=== PATIENT | female | born 1955 | race Caucasian/White ===

== ENCOUNTER 2019-03-31 16:35 | Outpatient (CLI) | payer BC, SELFPAY ==
--- NOTE | ~2019-03-31 | CT_ITS ---
EXAMINATION: CT abdomen pelvis wo con DATE: 03/31/2019 17:11 INDICATION: Unspecified abdominal pain, dysuria TECHNIQUE: Computed tomography (CT) of the abdomen and pelvis was performed without intravenous contr ast. The dose-length product (DLP) was 1097.87 mGy-cm. Automated exposure control and iterative recon struction technique were employed. COMPARISON: None FINDINGS: Minimal dependent atelectasis is present in the lung bases. The heart size is normal. The l iver is diffusely low in attenuation when compared with the spleen, consistent with hepatic steatosis . A 1.3 cm fluid attenuation area of the right hepatic lobe likely represents a cyst. The gallbladder is surgically absent. Punctate calcifications in an otherwise normal spleen likely represent healed granulomatous disease. The pancreas and adrenal glands are normal. There is a 4 mm nonobstructing sto ne of the left kidney. The right kidney is normal. No stones are identified in the ureters or bladder . There is no hydronephrosis or hydroureter. No pathologically enlarged abdominal or pelvic lymph nod es are identified. There is no free intraperitoneal gas or evidence of bowel obstruction. Multiple ce cum is noted in the left upper quadrant. The appendix is normal. IMPRESSION: 1. No CT correlate for the patient's symptoms. 2. Nonobstructing left nephrolithiasis. Reviewed, dictated and finalized at location A. [employer]
[2019-03-31 16:50] LABS: Add Urine Microscopic? NO; Appearance Urine Clear (Clear); Bilirubin Urine Negative (Negative); Blood Urine Negative (Negative); Color Urine Colorless (Yellow); Glucose Urine UA Negative (Negative); Ketones Urine Negative (Negative); Leukocyte Esterase Ur Negative LEU/UL (NEGATIVE); Nitrate Urine Negative (Negative); Protein Urine Negative (Negative); Specific Grav Ur 1.008 (1.001-1.035); Urobilinogen Urine Negative mg/dL (<2.0)
== END 2019-03-31 16:36 | disposition home or self-care (01) ==
PROVIDERS: Physician Assistant; PCP Family Medicine; Visit Provider Family Medicine
DX: R10.9 Unspecified abdominal pain (principal); R30.0 Dysuria; N20.0 Calculus of kidney
CPT/HCPCS: 74176; 81003

== ENCOUNTER → 2019-08-28 07:52 | Outpatient (CLI) | payer BC, SELFPAY ==
--- NOTE | ~2019-08-28 | XR_ITS ---
XR thoracic spine 3V DATE: 08/28/2019 08:37 INDICATION: Thoracic back pain TECHNIQUE: AP, lateral, swimmer views COMPARISON: None FINDINGS: No fracture or dislocation or bone destruction is evident. The thoracic pedicles are intact . There is mild degenerative spurring of the thoracic spine. No paraspinal soft tissue thickening. Surgical clips, right upper quadrant, consistent with cholecystectomy. IMPRESSION: Mild degenerative spurring of the thoracic spine Reviewed, dictated and finalized at location D.
== END ==
PROVIDERS: PCP Family Medicine; Visit Provider Family Medicine
DX: M54.6 Pain in thoracic spine (principal); M46.04 Spinal enthesopathy, thoracic region
CPT/HCPCS: 72072

== ENCOUNTER 2019-10-16 10:24 | Outpatient (CLI) | payer BC, SELFPAY ==
[2019-10-16 10:37] LABS: Basophils Percent Auto 0.7 % (0.2-1.2); Eosinophils Absolute Auto 0.2 K/mm3 (0-0.3); Eosinophils Percent Auto 2.7 % (0-4.4); Hematocrit 41.4 % (37.0-47.0); Hemoglobin 13.3 g/dL (12.0-15.0); Immature Granulocyte Absolute 0.02 K/mm3 (0.00-0.031); Immature Granulocyte Percent A 0.3 % (0-0.5); Lymphocytes Absolute Auto 2.17 K/mm3 (0.9-3.2); Mean Corpuscular HGB Conc 32.1 g/dl (32-36); Mean Corpuscular Hemoglobin 28.4 pg (26-34); Mean Corpuscular Volume 88.3 fl (80-100); Mean Platelet Volume 11.2 fl (7.4-10.4); Monocytes Absolute Auto 0.5 K/mm3 (0.1-0.6); Monocytes Percent Auto 8.8 % (2.6-8.5); Neutrophils Absolute Auto 3.1 K/mm3 (1.3-6.7); Neutrophils Percent Auto 51.5 % (45.5-73.1); Platelet Count Result 166 k/mm3 (150-375); Red Blood Count 4.69 M/mm3 (4.2-5.4); Red Cell Distribution Width 13.2 % (11.5-14.5)
[2019-10-16 10:44] LABS: Blood Urea Nitrogen 17 mg/dL (8-26); Carbon Dioxide 20 mmol/L (22-30); Chloride 111 mmol/L (98-109); Estimated Glomerular Filt Rate > 60; Glucose 125 mg/dL (70-105); Potassium 4.1 mmol/L (3.5-4.9); Sodium 144 mmol/L (138-146)
[2019-10-16 12:51] LABS: Alanine Aminotransferase 18 U/L (4-35); Albumin Level 3.7 g/dL (3.5-5.1); Alkaline Phosphatase 57 U/L (38-126); Anion Gap 7 mmol/L (8-16); Aspartate Amino Transferase 22 U/L (14-36); Bilirubin,Total 0.4 mg/dL (0.2-1.3); Blood Urea Nitrogen 18 mg/dL (7-17); Calcium 8.9 mg/dL (8.4-10.2); Carbon Dioxide 22 mmol/L (22-30); Chloride 112 mmol/L (98-107); Estimated Glomerular Filt Rate > 60; Glucose 125 mg/dL (65-105); Potassium 4.3 mmol/L (3.4-5.0); Sodium 141 mmol/L (137-145)
== END 2019-10-16 10:25 | disposition home or self-care (01) ==
PROVIDERS: PCP Family Medicine; Visit Provider Internal Medicine Hematology & Oncology
DX: N60.92 Unspecified benign mammary dysplasia of left breast (principal)
CPT/HCPCS: 36415; 80048; 80053; 85025

== ENCOUNTER 2020-04-15 10:20 | Outpatient (CLI) | payer OTHER, SELFPAY ==
[2020-04-15 10:36] LABS: Basophils Percent Auto 0.7 % (0.2-1.2); Eosinophils Absolute Auto 0.2 K/mm3 (0-0.3); Eosinophils Percent Auto 2.7 % (0-4.4); Hematocrit 41.5 % (37.0-47.0); Hemoglobin 13.2 g/dL (12.0-15.0); Immature Granulocyte Absolute 0.03 K/mm3 (0.00-0.031); Immature Granulocyte Percent A 0.5 % (0-0.5); Lymphocytes Absolute Auto 2.16 K/mm3 (0.9-3.2); Lymphocytes Percent Auto 36.7 % (18.3-44.2); Mean Corpuscular HGB Conc 31.8 g/dl (32-36); Mean Corpuscular Hemoglobin 28.1 pg (26-34); Mean Corpuscular Volume 88.5 fl (80-100); Mean Platelet Volume 10.9 fl (7.4-10.4); Monocytes Absolute Auto 0.5 K/mm3 (0.1-0.6); Monocytes Percent Auto 8.7 % (2.6-8.5); Neutrophils Percent Auto 50.7 % (45.5-73.1); Platelet Count Result 169 k/mm3 (150-375); Red Blood Count 4.69 M/mm3 (4.2-5.4); Red Cell Distribution Width 13.3 % (11.5-14.5); White Blood Count 5.9 K/mm3 (4.5-10.0)
[2020-04-15 10:40] LABS: Blood Urea Nitrogen 21 mg/dL (8-26); Carbon Dioxide 20 mmol/L (22-30); Chloride 111 mmol/L (98-109); Estimated Glomerular Filt Rate > 60; Glucose 126 mg/dL (70-105); Potassium 3.9 mmol/L (3.5-4.9); Sodium 144 mmol/L (138-146)
[2020-04-15 11:47] LABS: Alanine Aminotransferase 17 U/L (4-35); Albumin Level 3.4 g/dL (3.5-5.1); Alkaline Phosphatase 59 U/L (38-126); Anion Gap 6 mmol/L (8-16); Aspartate Amino Transferase 23 U/L (14-36); Bilirubin,Total 0.3 mg/dL (0.2-1.3); Blood Urea Nitrogen 20 mg/dL (7-17); Calcium 8.3 mg/dL (8.4-10.2); Carbon Dioxide 22 mmol/L (22-30); Chloride 114 mmol/L (98-107); Estimated Glomerular Filt Rate > 60; Glucose 121 mg/dL (65-105); Potassium 4.2 mmol/L (3.4-5.0); Sodium 142 mmol/L (137-145)
== END 2020-04-15 10:21 | disposition home or self-care (01) ==
LOC: ANHLAB 10:23
PROVIDERS: PCP Family Medicine; Visit Provider Internal Medicine Hematology & Oncology
DX: N60.92 Unspecified benign mammary dysplasia of left breast (principal)
CPT/HCPCS: 36415; 80048; 80053; 85025

== ENCOUNTER 2020-06-22 23:23 | Emergency (ER) | payer OTHER, SELFPAY ==
--- NOTE | ~2020-06-22 | XR_ITS ---
EXAMINATION: XR knee RT 3V DATE: 06/22/2020 23:49 INDICATION: Right knee pain. TECHNIQUE: 3 views of right knee were obtained. COMPARISON: None. FINDINGS: Bone alignment is normal. No fracture. There is mild osteoarthritis of medial and lateral c ompartments and moderate osteoarthritis of patellofemoral compartment. There is a small knee joint ef fusion with loose body. IMPRESSION: 1. Moderate right knee osteoarthritis. 2. Small right knee joint effusion with loose body. Reviewed, dictated and finalized at location A.
[2020-06-22 23:26] VITALS: BP 176/72; PULSE 65; RESP 18; TEMP 36.4; O2SAT 98
--- NOTE | 2020-06-23 00:03 | ED.GENADULT ---
HPI - General Adult General Chief complaint: Extremity Injury, Lower Stated complaint: leg pain, right knee popped Time Seen by Provider: 06/22/20 23:56 History of Present Illness HPI narrative: Patient is a 64-year-old female who presents the emergency department with chief complaint of right knee pain patient reports she has been having some discomfort in her right knee and then was walking up the steps today heard a loud pop and had severe pain in her right knee. Patient denies focal trauma denies laceration denies swelling in the calf. Related Data Home Medications Medication Instructions Recorded Confirmed tamoxifen 20 mg tablet 20 mg PO DAILY 02/25/19 05/05/20 fluticasone propionate 50 1 spray NASAL BID 06/29/19 05/05/20 mcg/actuation nasal spray,suspension Allergies Allergy/AdvReac Type Severity Reaction Status Date / Time No Known Allergies Allergy Verified 06/22/20 23:53 Review of Systems Review of Systems: Narrative: A 10 system review of systems was completed on the patient and is negative except for what is stated in the HPI. Nursing and ancillary documentation was reviewed. [facility] Past Medical History Medical History Abnormal breast tissue Abnormal fasting glucose Acute non-recurrent maxillary sinusitis Body mass index (BMI) of 40.1 to 44.9 in adult Chronic headaches Chronic low back pain with right-sided sciatica Colon polyp, hyperplastic Dysuria Essential (primary) hypertension Frozen shoulder (~2011) GERD (gastroesophageal reflux disease) History of migraine headaches Menopausal symptoms Migraine without aura and without status migrainosus, not intractable Mixed hyperlipidemia Right flank pain Right-sided thoracic back pain Seasonal allergic rhinitis TMJ (dislocation of temporomandibular joint) (~1979) Surgical History Surgical History H/O knee surgery (~1979) H/O: hysterectomy (~1984) History of bunionectomy (~1998) bilateral History of placement of ear tubes History of sinus surgery (~2004) Hx of cholecystectomy (~1999) Hx of tonsillectomy Family History Family History Mother Cerebrovascular accident Dementia Father Diabetes mellitus Hypertension CHF (congestive heart failure) Grandparent Heart disease Grandparent Heart disease Grandparent Cerebrovascular accident Grandparent Automobile accident Social History Social History Smoking packs per day: 2 Smoking cigarettes per day: 40.0 Years smoked: 10 Smoking pack-years: 20.00 Smoking status: Former smoker Alcohol intake: current Substance use: never Substance use type: does not use Exam Narrative: Exam Narrative: GENERAL: Well-appearing, well-nourished, and in no acute distress. HEAD: Normocephalic, atraumatic. EYES: PERRLA and EOMI. ENT: Nares clear, no rhinorrhea or epistaxis. Mucous membranes moist. NECK: Supple. CHEST: Clear to auscultation. No respiratory distress. HEART: Regular rate and rhythm. No murmur heard. Normal peripheral pulses. ABDOMEN: Soft, nontender, nondistended, normal active bowel sounds. EXTREMITIES: Normal range of motion. No edema. There is a slight joint effusion on the right knee. There is tenderness to palpation SKIN: Warm, dry, no rash. NEURO: No focal deficits. Alert and oriented x3. PSYCH: Normal mood and affect. Course Course Emergency Course: Plain film x-rays of the right knee showed a slight joint effusion and a loose body. Patient will be placed in a knee immobilizer and the patient has crutches at home patient will be referred to orthopedics Vital Signs Vital signs: Vital Signs Temperature 36.4 C 06/22/20 23:26 Pulse Rate 65 06/22/20 23:26 Re
[2020-06-23] MEDS: HYDROcodone/acetaminophen (*CRX) 5-325 MG TABLET 1 TAB PO (00:49)
[2020-06-23 00:53] VITALS: BP 160/69; PULSE 59; RESP 18; O2SAT 100
--- NOTE | 2020-06-23 00:55 | PC.NURSE ---
patient reports that she has crutches at home
== END 2020-06-23 00:55 | disposition home or self-care (01) ==
LOC: ANHED 06-23 00:15
PROVIDERS: Emergency Provider Emergency Medicine; PCP Family Medicine
DX: M23.91 Unspecified internal derangement of right knee (principal); I10 Essential (primary) hypertension; E78.2 Mixed hyperlipidemia; Z87.19 Personal history of other diseases of the digestive system; Z87.891 Personal history of nicotine dependence
CPT/HCPCS: 73562; 99283; A9270

== ENCOUNTER → 2020-07-07 12:05 | Outpatient (CLI) | payer OTHER, SELFPAY ==
--- NOTE | ~2020-07-07 | MR_ITS ---
EXAMINATION: MR knee RT wo con DATE: 07/07/2020 13:02 INDICATION: Other tear of medial meniscus, current injury, right knee, initial encounter. Right knee pain. TECHNIQUE: Magnetic resonance imaging (MRI) of the right knee was performed without intravenous contr ast. Sequences included axial PD-weighted FS FSE, coronal PD-weighted FSE and PD-weighted FS FSE, sag ittal PD-weighted FSE, and sagittal T2-weighted FS FSE. COMPARISON: Right knee radiographs 06/22/2020 FINDINGS: Medial compartment: There is a vertical tear of posterior root of medial meniscus. There is shallow partial-thickness car tilage loss of tibial condyle. There is full-thickness cartilage loss of femoral condyle involving th e central and medial articular surface. Osteophytes are noted. Lateral compartment: Lateral meniscus is normal. There is cartilage surface irregularity of tibial condyle and femoral con dyle. Marginal osteophytes are noted. Patellofemoral compartment: There is full-thickness cartilage loss of patellar medial and lateral facets and median ridge with mi ld subchondral edema-like marrow signal intensity. There is full-thickness cartilage loss of central and lateral trochlea with mild subchondral edema-like marrow signal intensity. Osteophytes are noted. Ligaments and tendons: The anterior cruciate ligament is normal. There is a partial tear of posterior cruciate ligament kathryn acterized by thickening and increased signal intensity. There are changes of prior sprains of medial collateral ligament and fibular collateral ligament characterized by thickening and increased signal intensity proximally. The patellar tendon is normal. Fluid: There is a small knee joint effusion. There is mild prepatellar and superficial infrapatellar bursiti s. IMPRESSION: 1. Severe chondrosis of medial and patellofemoral compartments and mild chondrosis of lateral compart ment. 2. Tear of medial meniscus. 3. Small knee joint effusion. 4. Partial tear of posterior cruciate ligament. Reviewed, dictated and finalized at location A. IMPRESSION: 1. Severe chondrosis of medial and patellofemoral compartments and mild chondro sis of lateral compartment. 2. Tear of medial meniscus. 3. Small knee joint effusion. 4. Partial tear of posterior cruciate ligament.
== END ==
PROVIDERS: Visit Provider Orthopaedic Surgery
DX: M25.461 Effusion, right knee (principal); S83.241A Other tear of medial meniscus, current injury, right knee, initial encounter; S83.91XA Sprain of unspecified site of right knee, initial encounter
CPT/HCPCS: 73721

== ENCOUNTER 2020-07-15 09:20 | Outpatient (CLI) | payer OTHER, SELFPAY ==
--- NOTE | ~2020-07-15 | MM_ITS ---
EXAMINATION: MM screening estela BI w acrl HISTORY: Screening mammogram TECHNIQUE: Craniocaudal and mediolateral oblique 3-D tomosynthesis images were obtained and synthetic 2-D images were generated. CAD analysis was submitted and interpreted. COMPARISON: No prior mammogram is available for comparison at this institution. BREAST PARENCHYMAL COMPOSITION: The breasts are almost entirely fatty. FINDINGS: There are clips in the lower inner quadrant of the left breast: History of prior benign lef t breast biopsy in 2019. There is no evidence of suspicious mass, calcification, or architectural dis tortion to suggest malignancy in either breast. There has been no suspicious interval change. IMPRESSION: 1. No mammographic evidence of malignancy. 2. Recommend routine screening mammography in one year. BI-RADS Category 1: Negative Reviewed, dictated and finalized at location A.
== END 2020-07-15 09:21 | disposition home or self-care (01) ==
LOC: ANHIMG 09:22
PROVIDERS: PCP Family Medicine; Visit Provider Internal Medicine Hematology & Oncology
DX: Z12.31 Encounter for screening mammogram for malignant neoplasm of breast (principal)
CPT/HCPCS: 77063; 77067

== ENCOUNTER → 2020-07-25 00:30 | Outpatient (CLI) | payer OTHER, SELFPAY ==
[2020-07-25 21:52] LABS: SARS-CoV-2 RNA PCR Negative
== END ==
PROVIDERS: Visit Provider Orthopaedic Surgery
DX: Z01.812 Encounter for preprocedural laboratory examination (principal); Z20.822 Contact with and (suspected) exposure to COVID-19
CPT/HCPCS: C9803; U0003; U0005

== ENCOUNTER 2020-07-25 08:00 | Outpatient (CLI) | payer OTHER, SELFPAY ==
--- NOTE | 2020-07-25 08:30 | ECG_ITS ---
Measurements Intervals [place] Rate: 58 P: 0 [place]: 149 QRS: -11 QRSD: 87 T: 17 QT: 423 QTc: 416 Interpretive Statements SINUS BRADYCARDIA DELAYED PRECORDIAL R/S TRANSITION VOLTAGE CRITERIA FOR LVH BORDERLINE ECG Electronically Signed On 07-25-2020 11:59:54 CDT by John Goncalves D.O.
== END 2020-07-25 08:01 | disposition home or self-care (01) ==
LOC: ANHSURGERY 08:02
PROVIDERS: Visit Provider Orthopaedic Surgery
DX: I10 Essential (primary) hypertension (principal); Z01.812 Encounter for preprocedural laboratory examination
CPT/HCPCS: 93005

== ENCOUNTER 2020-07-28 01:09 | Day surgery (SDC) | payer OTHER, SELFPAY ==
[2020-07-21 14:41] VITALS: BMI 37.8
[2020-07-28] VITALS (9 sets, daily range): BP systolic 120–162; BP diastolic 70–100; PULSE 57–81; RESP 10–16; TEMP 36.1–36.6; O2SAT 91–100
[2020-07-28] MEDS: ACETAMINOPHEN 500 MG TABLET 1000 MG PO (06:39)
[2020-07-28] MEDS: LACTATED RINGERS 1,000 ML 30 ML IV CONT ×2 (06:52→08:49)
[2020-07-28] MEDS: KETOROLAC 15 MG/ML VIAL (*BKC) IV PUSH (06:54)
--- NOTE | 2020-07-28 07:02 | WPDANESEPP ---
Anes - Eval Pre Procedure Procedure: Operation Date: 07/28/20 07:30 Proposed Procedures p Right Knee Arthroscopy, Debride Meniscus, Synovectomy, Chondroplasty, Proceed As Indicated - Juan Meneses MD Date/Time: 07/28/20 07:02 Pre Op Diagnosis: rt knee pain, right medial meniscus tear, Patient Data Age: 65 Gender: F Height: 1.63 m Weight: 102.2 kg Last Vital Signs Temp 36.1 C L 07/28/20 06:19 Pulse 57 L 07/28/20 06:19 Resp 16 07/28/20 06:19 BP 141/72 H 07/28/20 06:19 Pulse Ox 98 07/28/20 06:19 Allergies Allergy/AdvReac Type Severity Reaction Status Date / Time No Known Allergies Allergy Verified 07/28/20 06:33 Home Medications Medication Instructions Recorded Confirmed Type tamoxifen 20 mg tablet 20 mg PO DAILY 02/25/19 07/28/20 History cyclobenzaprine 10 mg tablet 10 mg PO TID PRN #60 tablet 05/05/20 07/28/20 Rx fluoxetine 20 mg tablet 20 mg PO DAILY #30 tablet 05/05/20 07/28/20 Rx carvedilol 12.5 mg tablet 12.5 mg PO Q12H #60 tablet 06/03/20 07/28/20 Rx topiramate 50 mg tablet 50 mg PO BID #60 tablet 06/03/20 07/28/20 Rx cimetidine 400 mg tablet 400 mg PO QHS 06/29/20 07/28/20 History hydrocodone 5 mg-acetaminophen 325 1 tablet PO Q6H PRN #30 tablet 07/26/20 07/28/20 Rx mg tablet naproxen sodium [Aleve] 220 mg PO DAILY 07/28/20 07/28/20 History Patient hx anesthesia problems: none Family hx anesthesia problems: none PMFSH Past Medical History Medical History Abnormal breast tissue Abnormal fasting glucose Acute medial meniscus tear of right knee Acute non-recurrent maxillary sinusitis Arthritis of right knee Body mass index (BMI) of 40.1 to 44.9 in adult Chronic headaches Chronic low back pain with right-sided sciatica Colon polyp, hyperplastic Dysuria Essential (primary) hypertension Frozen shoulder (~2011) GERD (gastroesophageal reflux disease) History of migraine headaches Hypertension Knee effusion, right Menopausal symptoms Migraine without aura and without status migrainosus, not intractable Mixed hyperlipidemia Right flank pain Right-sided thoracic back pain Seasonal allergic rhinitis TMJ (dislocation of temporomandibular joint) (~1979) Wears glasses Surgical History Surgical History H/O knee surgery (~1979) H/O: hysterectomy (~1984) History of bunionectomy (~1998) bilateral History of placement of ear tubes History of shoulder surgery History of sinus surgery (~2004) History of surgery TMJ surgery Hx of cholecystectomy (~1999) Hx of tonsillectomy Family History Family History Mother Cerebrovascular accident Dementia Father Diabetes mellitus Hypertension CHF (congestive heart failure) Grandparent Heart disease Grandparent Heart disease Grandparent Cerebrovascular accident Grandparent Automobile accident Other Arthritis Kidney disorder Social History Social History Smoking packs per day: 1 Smoking cigarettes per day: 20.0 Years smoked: 10 Smoking pack-years: 10.00 Smoking status: Former smoker Smoking end date: 02/18/82 Alcohol intake: current Substance use: never Substance use type: does not use Last use: 1982 Living arrangements: with family Gender identity (if verbalized by the patient): Female Sexual Orientation (if Verbalized by the Patient): Straight or Heterosexual Spiritual care concerns: No Exam Day of Procedure 07/28/20 07:02 Patient weight: obese Heart: regular rate and rhythm Lungs: normal air movement Airway: Mallampati scale class II Neurological: alert and oriented
--- NOTE | 2020-07-28 07:05 | WPDANESEPPF ---
Anes - Initial Pre Proc Eval Procedure: Operation Date: 07/28/20 07:30 Proposed Procedures p Right Knee Arthroscopy, Debride Meniscus, Synovectomy, Chondroplasty, Proceed As Indicated - Juan Meneses MD Date/Time: 07/28/20 07:05 Surgeon: Juan Meneses MD Pre Op Diagnosis: rt knee pain, right medial meniscus tear, Patient Data Age: 65 Gender: F Height: 5 ft 4 in Weight: 102.2 kg Last Vital Signs Temp 97 F L 07/28/20 06:19 Pulse 57 L 07/28/20 06:19 Resp 16 07/28/20 06:19 BP 141/72 H 07/28/20 06:19 Pulse Ox 98 07/28/20 06:19 Allergies Allergy/AdvReac Type Severity Reaction Status Date / Time No Known Allergies Allergy Verified 07/28/20 06:33 Home Medications Medication Instructions Recorded Confirmed Type tamoxifen 20 mg tablet 20 mg PO DAILY 02/25/19 07/28/20 History cyclobenzaprine 10 mg tablet 10 mg PO TID PRN #60 tablet 05/05/20 07/28/20 Rx fluoxetine 20 mg tablet 20 mg PO DAILY #30 tablet 05/05/20 07/28/20 Rx carvedilol 12.5 mg tablet 12.5 mg PO Q12H #60 tablet 06/03/20 07/28/20 Rx topiramate 50 mg tablet 50 mg PO BID #60 tablet 06/03/20 07/28/20 Rx cimetidine 400 mg tablet 400 mg PO QHS 06/29/20 07/28/20 History hydrocodone 5 mg-acetaminophen 325 1 tablet PO Q6H PRN #30 tablet 07/26/20 07/28/20 Rx mg tablet naproxen sodium [Aleve] 220 mg PO DAILY 07/28/20 07/28/20 History Patient hx anesthesia problems: none Family hx anesthesia problems: none PMFSH Past Medical History Medical History Abnormal breast tissue Abnormal fasting glucose Acute medial meniscus tear of right knee Acute non-recurrent maxillary sinusitis Arthritis of right knee Body mass index (BMI) of 40.1 to 44.9 in adult Chronic headaches Chronic low back pain with right-sided sciatica Colon polyp, hyperplastic Dysuria Essential (primary) hypertension Frozen shoulder (~2011) GERD (gastroesophageal reflux disease) History of migraine headaches Hypertension Knee effusion, right Menopausal symptoms Migraine without aura and without status migrainosus, not intractable Mixed hyperlipidemia Right flank pain Right-sided thoracic back pain Seasonal allergic rhinitis TMJ (dislocation of temporomandibular joint) (~1979) Wears glasses Surgical History Surgical History H/O knee surgery (~1979) H/O: hysterectomy (~1984) History of bunionectomy (~1998) bilateral History of placement of ear tubes History of shoulder surgery History of sinus surgery (~2004) History of surgery TMJ surgery Hx of cholecystectomy (~1999) Hx of tonsillectomy Family History Family History Mother Cerebrovascular accident Dementia Father Diabetes mellitus Hypertension CHF (congestive heart failure) Grandparent Heart disease Grandparent Heart disease Grandparent Cerebrovascular accident Grandparent Automobile accident Other Arthritis Kidney disorder Social History Social History Smoking packs per day: 1 Smoking cigarettes per day: 20.0 Years smoked: 10 Smoking pack-years: 10.00 Smoking status: Former smoker Smoking end date: 02/18/82 Alcohol intake: current Substance use: never Substance use type: does not use Last use: 1982 Living arrangements: with family Gender identity (if verbalized by the patient): Female Sexual Orientation (if Verbalized by the Patient): Straight or Heterosexual Spiritual care concerns: No Anes - Eval Final PreProcedure Day of Procedure 07/28/20 07:05 Patient weight: obese Heart: regular rate and rhythm Lungs: clear to auscultation Airway: Mallampati scale class III Neurological: alert and oriented Last oral intake: >/= 8 hours ASA classification: III Emergent: no Anesthetic alphonso
--- NOTE | 2020-07-28 07:06 | WPDHPUPDATE1 ---
History and Physical Update Update Date/Time: 07/28/20 07:06 History and Physical has been reviewed, including an updated exam of the patient. There are NO changes in the patient's condition. Covid test negative. Risks, benefits, and alternatives have been discussed and questions answered. Patient agrees to proceed with procedure.
[2020-07-28] MEDS: SCOPOLAMINE 1.5 MG PATCH TRANSDERM (07:12)
[2020-07-28] MEDS: ceFAZolin 2 GM/D5W 50 ML 2 GM/50 ML BAG IVPB (07:20)
[2020-07-28] MEDS: BUPIVACAINE/EPINEPHRINE 0.5% 30 ML VIAL 50 ML INFILTRATE (07:48)
--- NOTE | 2020-07-28 08:40 | W.PM.PROC2 ---
Procedure Note - Detailed Date of Procedure 07/28/20 Pre-op Diagnosis rt knee pain, right medial meniscus tear, Post-op Diagnosis other (Right knee osteoarthritis, medial meniscus tear, chondromalacia, synovitis, exostosis lateral femoral condyle and femoral trochlea) Procedure Performed Right knee arthroscopy with partial medial meniscectomy, abrasion arthroplasty of the lateral femoral condyle, femoral trochlea and medial femoral condyle, debridement Surgeon Juan Meneses MD Anesthesia general Indications 65-year-old woman with right knee pain and swelling following injury. Symptoms unrelieved with conservative treatment, exercises, anti-inflammatories and cortisone injection. MRI demonstrates degenerative changes and medial meniscus tear. Patient presents for operative treatment. Findings Complex degenerative type tear of the posterior horn medial meniscus extending to the medial root complex. Large exostosis of the lateral femoral condyle and femoral trochlea at the patellofemoral articulation, superior medial femoral condyle. Grade 4 chondromalacia of the medial femoral condyle weight-bearing surface and the patellofemoral articulation. Grade 3 chondromalacia medial tibial plateau and lateral femoral condyle. Lateral meniscus intact. ACL and PCL intact. Description of Procedure Informed consent given by patient. Operative extremity marked in preoperative holding area. Patient received intravenous antibiotics. Patient brought to operating room and underwent general anesthetic by anesthesia team. Positioned supine on operating room table. Right leg placed into a posterior thigh leg yo. Foot of the table dropped to 90? and left leg padded out of the field. Time-out performed confirming patient, site of surgery and plan. Right knee prepped and draped in usual sterile surgical fashion using ChloraPrep skin solution. Standard arthroscopic portals made by using a 11 blade knife for the anterior lateral portal 1st. Capsule penetrated bluntly. Camera and inflow started. The below operative findings noted. Intra-articular visualization used to position the anterior medial portal using 22 gauge spinal needle. A 11 blade knife used for the skin and blunt penetration of the capsule. 4.7 millimeter arthroscopic shaver introduced and partial medial meniscectomy of the loose and torn portion performed. Posterior horn of the medial meniscus resected to the medial root back to stable tissue. Edge of meniscus completed with arthroscopic Wand. 4.0 mm shaver used to resect the large exostosis from the lateral femoral condyle, patellofemoral articulation, femoral trochlea and the superior medial femoral condyle. Cartilage and loose or degenerative bone removed down to good bleeding stable bone surface at these areas to complete abrasion arthroplasty. Arthroscopic Wand used to perform chondroplasty of the patellofemoral articulation and the medial femoral condyle. Shaver reintroduced and a synovectomy performed of the anterior fat pad and extensive synovium as well as medial and lateral plica. Bleeding points coagulated with Wand. Knee inspected, no loose pieces noted. 1 liter of irrigant infused and suction out. Arthroscopic cannulas removed. Skin closed with 4 nylon interrupted suture. Local anesthetic with 0.25% Marcaine. Sterile dressing applied. Patient awoken from anesthesia, extubated and taken to recovery room in stable condition. All sponge needle and instrument counts correct at the end of the case. Implants None Estimated Blood Loss 5 Tourniquet Time 0 Drains No Packing No Pathology none sent Complications None Condition stable Disposition PACU
--- NOTE | 2020-07-28 09:15 | SUR.PHASEI ---
O2 removed at 0915.
== END 2020-07-28 11:02 | disposition home or self-care (01) ==
PROVIDERS: PCP Family Medicine; Visit Provider Orthopaedic Surgery
PROC: (CPT 29870; principal; 2020-07-28 07:30)
DX: S83.231A Complex tear of medial meniscus, current injury, right knee, initial encounter (principal); X50.0XXA Overexertion from strenuous movement or load, initial encounter; M94.261 Chondromalacia, right knee; M65.861 Other synovitis and tenosynovitis, right lower leg; I10 Essential (primary) hypertension; E78.2 Mixed hyperlipidemia; K21.9 Gastro-esophageal reflux disease without esophagitis; Z79.891 Long term (current) use of opiate analgesic; Z87.891 Personal history of nicotine dependence; E66.9 Obesity, unspecified; Z68.38 Body mass index [BMI] 38.0-38.9, adult
CPT/HCPCS: 29881; 29879; 93005; A9270; C9803; J0690; J1100; J1200; J1885; J2250; J2405; J2704; J3010; J7120; U0003; U0005

== ENCOUNTER 2020-10-14 10:22 | Outpatient (CLI) | payer OTHER, SELFPAY ==
[2020-10-14 10:41] LABS: Basophils Percent Auto 0.5 % (0.2-1.2); Eosinophils Absolute Auto 0.2 K/mm3 (0-0.3); Eosinophils Percent Auto 3.1 % (0-4.4); Hematocrit 40.7 % (37.0-47.0); Hemoglobin 12.6 g/dL (12.0-15.0); Immature Granulocyte Absolute 0.01 K/mm3 (0.00-0.031); Immature Granulocyte Percent A 0.2 % (0-0.5); Lymphocytes Absolute Auto 2.23 K/mm3 (0.9-3.2); Lymphocytes Percent Auto 34.8 % (18.3-44.2); Mean Corpuscular Hemoglobin 27.5 pg (26-34); Mean Corpuscular Volume 88.9 fl (80-100); Mean Platelet Volume 11.3 fl (7.4-10.4); Monocytes Absolute Auto 0.5 K/mm3 (0.1-0.6); Monocytes Percent Auto 8.4 % (2.6-8.5); Neutrophils Absolute Auto 3.4 K/mm3 (1.3-6.7); Platelet Count Result 152 k/mm3 (150-375); Red Blood Count 4.58 M/mm3 (4.2-5.4); Red Cell Distribution Width 13.2 % (11.5-14.5); White Blood Count 6.4 K/mm3 (4.5-10.0)
[2020-10-14 10:45] LABS: Blood Urea Nitrogen 26 mg/dL (8-26); Carbon Dioxide 24 mmol/L (22-30); Chloride 108 mmol/L (98-109); Estimated Glomerular Filt Rate 56; Glucose 103 mg/dL (70-105); Sodium 144 mmol/L (138-146)
[2020-10-14 16:15] LABS: Alanine Aminotransferase 15 U/L (4-35); Albumin Level 3.7 g/dL (3.5-5.1); Alkaline Phosphatase 65 U/L (38-126); Anion Gap 8 mmol/L (8-16); Aspartate Amino Transferase 20 U/L (14-36); Bilirubin,Total 0.3 mg/dL (0.2-1.3); Blood Urea Nitrogen 26 mg/dL (7-17); Carbon Dioxide 24 mmol/L (22-30); Chloride 106 mmol/L (98-107); Estimated Glomerular Filt Rate > 60; Glucose 106 mg/dL (65-110); Sodium 138 mmol/L (137-145)
== END 2020-10-14 10:23 | disposition home or self-care (01) ==
LOC: ANHLAB 10:25
PROVIDERS: PCP Family Medicine; Visit Provider Internal Medicine Hematology & Oncology
DX: N60.92 Unspecified benign mammary dysplasia of left breast (principal); D24.2 Benign neoplasm of left breast; E66.01 Morbid (severe) obesity due to excess calories
CPT/HCPCS: 36415; 80048; 80053; 85025

== ENCOUNTER 2020-12-09 13:42 | Inpatient (IN) | payer OTHER, SELFPAY ==
--- NOTE | ~2020-12-09 | US_ITS ---
EXAMINATION: US venous doppler [facility] DATE: 12/10/2020 10:15 INDICATION: Shortness of breath, pulmonary emboli TECHNIQUE: Almazan scale images without and with compression and Doppler images of the bilateral lower e xtremity veins were obtained. COMPARISON: None FINDINGS: The right common femoral vein, profunda femoral vein, femoral vein, popliteal vein, peroneal trunk, p osterior tibial veins, and greater saphenous vein are patent. The left common femoral vein, profunda femoral vein, femoral vein, and greater saphenous vein are pat ent. There is thrombosis of the popliteal vein, peroneal trunk, gastrocnemius, and posterior tibial v eins. IMPRESSION: 1. Thrombosis of the left popliteal vein, peroneal trunk, gastrocnemius, and posterior tibial veins. Known diagnosis of pulmonary embolism. 2. Patent right lower extremity veins. Reviewed, dictated and finalized at location A. IMPRESSION: 1. Thrombosis of the left popliteal vein, peroneal trunk, gastrocnemius, and po sterior tibial veins. Known diagnosis of pulmonary embolism. 2. Patent right lower extremity veins.
--- NOTE | ~2020-12-09 | XR_ITS ---
EXAMINATION: XR chest 2V DATE: 12/09/2020 14:25 INDICATION: Postoperative shortness of breath TECHNIQUE: frontal and lateral views of the chest were obtained. COMPARISON: None FINDINGS: The lungs are clear with no focal airspace opacities, pulmonary edema, pleural effusion or pneumothor ax. The cardiomediastinal silhouette is normal. Mild to moderate thoracic spondylosis with chronic ap pearing mild anterior wedging of a midthoracic vertebral body likely T8. Small sclerotic lesion at th e right humeral head with location and appearance most consistent with an enchondroma. Cholecystectom y clips in the right upper quadrant. IMPRESSION: 1. No acute cardiopulmonary disease. Reviewed, dictated and finalized at location A.
--- NOTE | ~2020-12-09 | US_ITS ---
EXAMINATION: US thyroid EXAM DATE: 12/11/2020 09:17 INDICATION: thyroid nodules. TECHNIQUE: Multiple grayscale and Doppler images of the thyroid were obtained (by a technologist who performed the scan) and subsequently reviewed. Individual nodules and recommendations may be reporte d in accordance with TI-RADS system as designated by the 2017 ACR White Paper TI-RADS committee. The re is no prior study for comparison. FINDINGS: The right thyroid lobe measures 4.5 x 1.8 x 2.3 cm, the left measuring 4.0 x 1.6 x 2.2 cm. Mildly dif fusely heterogeneous thyroid echogenicity with scattered thyroid nodules. There is a right thyroid lobe nodule measuring 1.6 x 1.6 x 1.6 cm, solid (2 points), isoechoic (1 poi nt), wider than tall, smooth well defined margin, without echogenic foci, category TR3 for this nodul e. On the left side a region was measured which may or may not be a focal nodule, is isoechoic to thyroi d parenchyma with dimensions obtained at 2.5 x 1.4 x 1.3 cm, category TR 3. If it is a focal nodule IMPRESSION: Multinodular goiter. Recommend one-year follow-up ultrasound. Reviewed, dictated and finalized at location B.
--- NOTE | ~2020-12-09 | CT_ITS ---
EXAMINATION: CTA chest PE protocol DATE: 12/09/2020 16:01 INDICATION: Shortness of breath TECHNIQUE: Computed tomography angiography (CTA) of the chest was performed with 100 mL Omnipaque-350 intravenous contrast timed to evaluate the pulmonary arteries. Coronal maximum intensity projection 3D-reconstructions were created by the technologist. The dose-length product (DLP) was 554.67 mGy-cm. Automated exposure control and iterative reconstruction technique were employed. COMPARISON: None. FINDINGS: The pulmonary arteries are well-opacified. There are bilateral acute emboli involving proxi mal branches of the lingula, left lower lobe, right lower lobe, right middle lobe, and right upper lo be. There is straightening of the interventricular septum. The heart size is normal. There is a focal opacity of the lingula. There is no pleural effusion or pneumothorax. No pathologically enlarged tho racic lymph nodes are identified. Thyroid nodules measure up to 1.7 cm on the right. The gallbladder is surgically absent. There is moderate thoracic spondylosis. IMPRESSION: 1. Bilateral central pulmonary emboli. Straightening of the interventricular septum could reflect rig ht heart strain. These findings were discussed with Dr. Earl Ramachandran MD in the Emergency Depart ment at 1613 hours on 12/09/2020. 2. Focal opacity of the lingula which could reflect atelectasis or possibly small pulmonary infarct. 3. Multiple thyroid nodules. Consider nonemergent thyroid ultrasound for risk stratification. Reviewed, dictated and finalized at location A. IMPRESSION: 1. Bilateral central pulmonary emboli. Straightening of the interventricular se ptum could reflect right heart strain. These findings were discussed with Dr. Karol Ramachandran MD in the Emergency Department at 1613 hours on 12/09/2020. 2. Focal opacity of the lingula which could reflect atelectasis or possibly sma ll pulmonary infarct. 3. Multiple thyroid nodules. Consider nonemergent thyroid ultrasound for risk s tratification.
[2020-12-09 14:06] VITALS: BP 174/104; PULSE 89; RESP 20; TEMP 36.1; O2SAT 94
--- NOTE | 2020-12-09 14:10 | ECG_ITS ---
Measurements Intervals [place] Rate: 80 P: 54 [place]: 144 QRS: -7 QRSD: 104 T: 47 QT: 367 QTc: 424 Interpretive Statements SINUS RHYTHM LEFT VENTRICULAR HYPERTROPHY WITH ST-T CHANGE BORDERLINE ECG Electronically Signed On 12-09-2020 15:00:46 CDT by John Goncalves D.O.
--- NOTE | 2020-12-09 14:26 | ED.SOB ---
HPI - SOB/Dyspnea General Chief Complaint: Shortness of Breath/Dyspnea Stated Complaint: diff breathing Time Seen by Provider: 12/09/20 14:20 Source: patient Mode of arrival: ambulatory Limitations: no limitations History of Present Illness HPI Narrative: Patient is a 65-year-old female complaining of shortness of breath, worse with exertion x1 week. Patient states that she saw her orthopedic surgeon this week and was told to go to the emergency room to rule out a blood clot. Patient had surgery on her knee 4 months ago. Patient denies any chest pain, abdominal pain, abdominal distention, lower extremity swelling or pain, fever or chills. Related Data Home Medications Medication Instructions Recorded Confirmed tamoxifen 20 mg tablet 20 mg PO DAILY 02/25/19 12/06/20 cimetidine 400 mg tablet 400 mg PO QHS 06/29/20 12/06/20 Allergies Allergy/AdvReac Type Severity Reaction Status Date / Time No Known Allergies Allergy Verified 12/06/20 14:10 Review of Systems Review of Systems: All systems reviewed & are unremarkable except as noted in HPI and below Constitutional: Constitutional: Denies body ache(s), Denies chills, Denies excessive sweating, Denies fatigue, Denies fever(s), Denies headache(s), Denies lethargy, Denies malaise, Denies weakness and Denies weight loss Eyes: Eyes: Denies blurry vision, Denies change in vision and Denies loss of vision ENT: Denies dizziness, Denies ear discharge, Denies headache(s), Denies lip swelling, Denies epistaxis, Denies nasal congestion, Denies neck pain, Denies throat swelling and Denies tongue swelling Cardiovascular: Cardiovascular: Denies chest pain, Denies chest pain at rest, Denies chest pain with activity, Denies diaphoresis, Denies rapid heart rate, Denies edema, Denies irregular heart rhythm, Denies lightheadedness and Denies palpitations Respiratory: Respiratory: Denies chest congestion, Denies cough and Denies hemoptysis Gastrointestinal: Gastrointestinal: Denies abdominal pain, Denies melena, Denies hematochezia, Denies diarrhea, Denies nausea, Denies vomiting and Denies hematemesis Musculoskeletal: Musculoskeletal: Denies abnormal gait, Denies deformity, Denies joint swelling, Denies limited range of motion, Denies neck pain and Denies numbness Neurologic: Denies Abnormal speech present, Denies abnormal gait, Denies confusion, Denies dizziness, Denies headache(s), Denies focal weakness, Denies loss of vision, Denies numbness, Denies Other visual disturbances, Denies Sensory deficit (Neuro) and Denies weakness Psychiatric: Psychiatric: Denies confusion, Denies depression, Denies auditory hallucinations, Denies homicidal ideation and Denies suicidal ideation Endocrine: Endocrine: Denies cold intolerance, Denies excessive sweating, Denies fatigue, Denies heat intolerance and Denies palpitations Hematologic/Lymphatic: Hematologic/Lymphatic: Denies easy bleeding and Denies easy bruising Allergic/Immunologic: Allergic/Immunologic: Denies lip swelling, Denies throat swelling and Denies tongue swelling PMFSH Past Medical History Medical History Abnormal breast tissue Abnormal fasting glucose Acute medial meniscus tear of right knee Acute non-recurrent maxillary sinusitis Arthritis of right knee BMI 38.0-38.9,adult Body mass index (BMI) of 40.1 to 44.9 in adult Cellulitis Chronic headaches Chronic low back pain with right-sided sciatica Colon polyp, hyperplastic Dysuria Elevated TSH Encounter for Postoperative Care Essential (primary) hypertension Frozen shoulder (~2011) GERD (gastroesophageal reflux disease) History of migraine headaches Hypertension Knee effusion, right Menopausal symptoms Migraine without aura and without status migrainosus, not intractable Mixed hyperlipidemia Right flank pain Right knee DJD Right-sided thoracic back pain Seasonal allergic rhinitis Sting, hornet TMJ (dislocation of temporomandibular
[2020-12-09 14:53] LABS: Basophils Percent Auto 0.4 % (0.2-1.2); Eosinophils Absolute Auto 0.2 K/mm3 (0-0.3); Eosinophils Percent Auto 1.8 % (0-4.4); Hematocrit 42.4 % (37.0-47.0); Hemoglobin 13.7 g/dL (12.0-15.0); Immature Granulocyte Absolute 0.03 K/mm3 (0.00-0.031); Immature Granulocyte Percent A 0.4 % (0-0.5); Lymphocytes Percent Auto 31.3 % (18.3-44.2); Mean Corpuscular HGB Conc 32.3 g/dl (32-36); Mean Corpuscular Hemoglobin 28.6 pg (26-34); Mean Corpuscular Volume 88.5 fl (80-100); Mean Platelet Volume 11.5 fl (7.4-10.4); Monocytes Absolute Auto 0.7 K/mm3 (0.1-0.6); Monocytes Percent Auto 7.8 % (2.6-8.5); Neutrophils Absolute Auto 4.9 K/mm3 (1.3-6.7); Neutrophils Percent Auto 58.3 % (45.5-73.1); Platelet Count Result 151 k/mm3 (150-375); Red Blood Count 4.79 M/mm3 (4.2-5.4); Red Cell Distribution Width 13.5 % (11.5-14.5); White Blood Count 8.3 K/mm3 (4.5-10.0)
[2020-12-09 15:08] LABS: INR 1.1; Prothrombin Time 13.8 Seconds (11.1-14.7)
[2020-12-09 15:09] LABS: Partial Thromboplastin Time 22.1 SECONDS (22.3-36.8)
[2020-12-09 15:15] LABS: NT Pro B Type Natriuretic Pept 1930 pg/mL (5-100)
[2020-12-09 15:26] LABS: D Dimer 3.79 ug/mL (<0.48)
[2020-12-09 15:46] LABS: Anion Gap 9 mmol/L (8-16); Blood Urea Nitrogen 19 mg/dL (7-17); Calcium 9.2 mg/dL (8.4-10.2); Carbon Dioxide 21 mmol/L (22-30); Chloride 112 mmol/L (98-107); Estimated CRCL calculation 53 ml/min; Estimated Glomerular Filt Rate 50; Glucose 124 mg/dL (65-110); Potassium 4.1 mmol/L (3.4-5.0); Sodium 142 mmol/L (137-145)
[2020-12-09] MEDS: HEPARIN SODIUM 5,000 UNITS/ML VIAL 8000 UNITS IV PUSH (16:38)
[2020-12-09] MEDS: HEPARIN SOD/D5W 100 UNITS/ML 25,000 UNITS/250 ML BAG 13 UNITS IV CONT (16:40)
[2020-12-09 17:12] VITALS: BP 162/79; PULSE 81; RESP 18; O2SAT 99
[2020-12-09 18:23] VITALS: BP 152/83; PULSE 92; RESP 18; O2SAT 99
[2020-12-09] MEDS: HYDROcodone/acetaminophen (*CRX) 5-325 MG TABLET 1 TAB PO (18:40)
[2020-12-09 19:20] VITALS: BP 115/77; PULSE 94; RESP 19; O2SAT 95
--- NOTE | 2020-12-09 19:20 | PC.NURSE ---
Assumed care of pt at this time. Pt alert and upright on stretcher, denies CP or SOB. Heparin infusing, see mAR. Pt updated on POC and visitor policy.
--- NOTE | 2020-12-09 20:00 | ADMGEN ---
This patient, Triny Alarcon, was admitted to IMU Room 212-01. Patient/family oriented to hospital policies and general routines including ID bracelet, bed and alarms, visiting hours, pain management, procedures, bathroom and other care routines, personal items, smoking policy, room service/diet, and visiting hours. Information on how to activate the Rapid Response Team has been discussed. Patient/Family are encouraged to report perceived risks to care and to ask questions if they do not understand what they are told or what they should do.
[2020-12-09 22:00] VITALS: PULSE 78
--- NOTE | 2020-12-09 22:46 | PM.IMHP ---
H&P: HPI History of Present Illness Date/Time: 12/09/20 22:46 this is a 65-year-old female patient that has been short of breath for at least 1 week with exertion. The patient stated that she would walk up a flight of stairs and become short of breath. The patient denied any chest pain. The patient called her primary care doctor who told her to come to the emergency room to rule out a blood clot. The patient had surgery to right knee approximately 4 months ago. The patient has not had any history of having a PE or DVT. The patient is not short of breath while resting. The patient still continues to walk on crutches. She is complaining of pain to her right knee. She stated that her right knee has never stopped hurting. Was still using crutches and partial weight-bearing. She had a right knee arthroscopic surgery on 07/28/2020. Her pain is unchanged since 09/06/2020. CTA was read as the following 1. Bilateral central pulmonary emboli. Straightening of the interventricular septum could reflect right heart strain. These findings were discussed with Dr. Earl Ramachandran MD in the Emergency Department at 1613 hours on 12/09/2020. 2. Focal opacity of the lingula which could reflect atelectasis or possibly small pulmonary infarct. 3. Multiple thyroid nodules. Consider nonemergent thyroid ultrasound for risk stratification. I spoke with my collaborative as I had some concerns about right heart strain and she referred me to Dr. Strauss. We discussed the case and since the patient is on room air and she has been having the symptoms for approximately 1 week and is stable, we decided to admit the patient. She was started on heparin drip. The patient is on room air and talking in full sentences. The patient is being admitted to inpatient services on the date of service of 12/09/2020. Chief Complaint: Shortness of breath with exertion Review of Systems Review of Systems: All systems reviewed & are unremarkable except as noted in HPI and below Constitutional: Constitutional: Reports as per HPI and Reports no additional constitutional complaints Eyes: Eyes: Reports as per HPI and Reports no additional eye complaints ENT: Reports system reviewed and no additional complaints, except as documented and Reports Normal hearing present Cardiovascular: Cardiovascular: Reports no additional cardiovascular complaints Respiratory: Respiratory: Reports no additional respiratory complaints and Reports no additional respiratory complaints Gastrointestinal: Gastrointestinal: Reports as per HPI and Reports no additional gastrointestinal complaints Musculoskeletal: Musculoskeletal: Reports no additional musculoskeletal complaints Integumentary/Breasts: Skin/Breast: Reports system reviewed and no additional complaints, except as docu and Reports as per HPI Neurologic: Reports system reviewed and no additional complaints, except as documented, Reports as per HPI and Reports Normal hearing present Psychiatric: Psychiatric: Reports no additional psychiatric complaints and Reports as per HPI Endocrine: Endocrine: Reports no additional endocrine complaints Hematologic/Lymphatic: Hematologic/Lymphatic: Reports no additional hematologic/lymphatic complaints Allergic/Immunologic: Allergic/Immunologic: Reports no additional allergic/immunologic complaints [facility] Past Medical History Medical History (Updated 12/09/20 @ 23:01 by Maria Luisa Hernandez NP) Abnormal breast tissue Abnormal fasting glucose Acute medial meniscus tear of right knee Acute non-recurrent maxillary sinusitis Arthritis of right knee BMI 38.0-38.9,adult Body mass index (BMI) of 40.1 to 44.9 in adult Cellulitis Chronic headaches Chronic low back pain with right-sided sciatica Colon polyp, hyperplastic Depression with anxiety Dysuria Elevated TSH Encounter for Postoperative Care Essential (primary) hypertension Frozen shoulder (~2011) GERD (gastroesophageal reflux disease) History of migraine headache
[2020-12-09 23:35] LABS: Partial Thromboplastin Time 172.4 SECONDS (22.3-36.8)
[2020-12-09 23:54] VITALS: BP 134/72; PULSE 69; RESP 15; TEMP 37.4; O2SAT 97
[2020-12-10] VITALS (16 sets, daily range): BP systolic 119–142; BP diastolic 57–83; PULSE 67–87; RESP 14–22; TEMP 36.2–37.6; O2SAT 96–97
--- NOTE | 2020-12-10 | ECHO_ITS ---
Patient Info Name: Triny Aalrcon Age: 65 years : 1955 Gender: Female Ht: 64 in Wt: 219 lbs BSA: 2.17 m2 HR: 65 bpm BP: 119 / 71 mmHg Heart Rhythm: Sinus Rhythm Technical Quality: Good Exam Date: 12/10/2020 9:23 AM Exam Location: [facility] Pulmonary Exam Room: [facility] Patient Status: Inpatient Admit Date: 12/09/2020 Staff Ordering Physician: Maria Luisa Hernandez NP [employer] Supervisor: Ruth Driscoll RDCS Attending Provider: Sandra Schroeder MD Referring Physician: David FUENTES; Exam Type: CA echo doppler color flow Study Info Indications - pe with right strain sob s/p knee surgery Complete two-dimensional, color flow and Doppler transthoracic echocardiogram is performed. Summary 1. Complete two-dimensional, color flow and Doppler transthoracic echocardiogram is performed. 2. Left ventricular chamber dimension is normal. 3. Left ventricular systolic function is normal, estimated at 55-60%. 4. There is no increased left ventricular wall thickness. 5. The left ventricular diastolic function is grade I diastolic dysfunction. 6. There is mild mitral valve regurgitation. 7. There is mild to moderate tricuspid valve regurgitation. 8. Moderate pulmonary hypertension, estimated pulmonary arterial systolic pressure is 58 mmHg. Left Ventricle Left ventricular chamber dimension is normal. Left ventricular systolic function is normal, estimated at 55-60%. There is no increased left ventricular wall thickness. The left ventricular diastolic function is grade I diastolic dysfunction. Right Ventricle Right ventricular chamber dimension is normal. Right ventricular systolic function is normal. Left Atria Left atrial chamber dimension is normal. Right Atria Right atrial chamber dimension is normal. Atrial Septum Intact interatrial septum visualized by color flow imaging. Aortic Valve The aortic valve is trileaflet. There is mild aortic valve sclerosis. There is no aortic valve stenosis. There is trace aortic valve regurgitation. Pulmonic Valve The pulmonic valve is normal. There is no pulmonic valve stenosis. There is trace pulmonic regurgitation. Mitral Valve The mitral valve has normal leaflets. There is no mitral valve stenosis. There is mild mitral valve regurgitation. Tricuspid Valve The tricuspid valve leaflets are normal. There is no significant tricuspid valve stenosis. There is mild to moderate tricuspid valve regurgitation. Moderate pulmonary hypertension, estimated pulmonary arterial systolic pressure is 58 mmHg. Pericardium/Pleural The pericardium appears normal. There is no pericardial effusion. Inferior Vena Cava Normal inferior vena cava with >50% collapse upon inspiration consistent with normal right atrial pressure, 10 mmHg. Aorta The aortic root size at the sinus of Valsalva is normal. Left Ventricular Outflow Tract Name Value Normal LVOT 2D LVOT Diameter 2.0 cm LVOT Doppler LVOT Peak Gradient 6 mmHg LVOT Mean Gradient 3 mmHg LVOT VTI 23 cm
[2020-12-10] MEDS: carvediloL 12.5 MG TABLET PO ×3 (01:02→20:09)
[2020-12-10 06:50] LABS: Basophils Percent Auto 0.5 % (0.2-1.2); Eosinophils Absolute Auto 0.2 K/mm3 (0-0.3); Eosinophils Percent Auto 2.8 % (0-4.4); Hematocrit 39.5 % (37.0-47.0); Hemoglobin 12.5 g/dL (12.0-15.0); Immature Granulocyte Absolute 0.01 K/mm3 (0.00-0.031); Immature Granulocyte Percent A 0.2 % (0-0.5); Immature Platelet Fraction Pct 5.3 % (0.9-11.2); Lymphocytes Absolute Auto 2.48 K/mm3 (0.9-3.2); Lymphocytes Percent Auto 38.5 % (18.3-44.2); Mean Corpuscular HGB Conc 31.6 g/dl (32-36); Mean Corpuscular Hemoglobin 28.7 pg (26-34); Mean Corpuscular Volume 90.6 fl (80-100); Monocytes Absolute Auto 0.6 K/mm3 (0.1-0.6); Monocytes Percent Auto 9.5 % (2.6-8.5); Neutrophils Absolute Auto 3.1 K/mm3 (1.3-6.7); Neutrophils Percent Auto 48.5 % (45.5-73.1); Platelet Count Result 141 k/mm3 (150-375); Red Blood Count 4.36 M/mm3 (4.2-5.4); Red Cell Distribution Width 13.6 % (11.5-14.5); White Blood Count 6.4 K/mm3 (4.5-10.0)
[2020-12-10 07:02] LABS: Alanine Aminotransferase 18 U/L (4-35); Albumin Level 3.4 g/dL (3.5-5.1); Alkaline Phosphatase 59 U/L (38-126); Anion Gap 10 mmol/L (8-16); Aspartate Amino Transferase 22 U/L (14-36); Bilirubin,Total 0.5 mg/dL (0.2-1.3); Blood Urea Nitrogen 19 mg/dL (7-17); Calcium 8.7 mg/dL (8.4-10.2); Carbon Dioxide 21 mmol/L (22-30); Chloride 112 mmol/L (98-107); Estimated CRCL calculation 63 ml/min; Estimated Glomerular Filt Rate > 60; Glucose 122 mg/dL (65-110); Potassium 3.9 mmol/L (3.4-5.0); Sodium 143 mmol/L (137-145)
[2020-12-10] MEDS: TOPIRAMATE 25 MG TABLET 50 MG PO ×2 (08:33→18:19)
[2020-12-10] MEDS: FLUoxetine HCL 20 MG CAPSULE PO (08:34)
[2020-12-10] MEDS: ACETAMINOPHEN 325 MG TABLET 650 MG PO ×2 (10:36→20:09)
--- NOTE | 2020-12-10 11:02 | PM.IMPN ---
Progress Note: A&P Assessment and Plan (1) Bilateral pulmonary embolism: Code(s): I26.99 - Other pulmonary embolism without acute cor pulmonale Status: Acute Assessment and Plan: The patient is currently on heparin drip. This could be related to her surgery or immobility. She also leads a sedentary life. will check formulary and will switch to Xarelto/Eliquis. ECHO pending. The patient has still been on crutches and partial weight-bearing. She still complains of right knee pain. She is also on tamoxifen which also increases the risk of DVT/PE. She is taking it for abnormal breast tissue and no definitive cancer in the past that she has been diagnosed with. Advised her to speak with oncologist with benefit risk for continuing tamoxifen (2) Migraine without aura and without status migrainosus, not intractable: Code(s): G43.009 - Migraine without aura, not intractable, without status migrainosus Status: Acute Assessment and Plan: Continue with patient's Topamax and her beta-lula. (3) Essential (primary) hypertension: Code(s): I10 - Essential (primary) hypertension Status: Acute Assessment and Plan: Continue with Coreg (4) GERD (gastroesophageal reflux disease): Code(s): K21.9 - Gastro-esophageal reflux disease without esophagitis Status: Acute Assessment and Plan: Continue with her acid conflict resolution professional. (5) Depression with anxiety: Code(s): F41.8 - Other specified anxiety disorders Status: Chronic Assessment and Plan: Continue with fluoxetine (6) DVT (deep venous thrombosis): Code(s): I82.409 - Acute embolism and thrombosis of unspecified deep veins of unspecified lower extremity Status: Acute Assessment and Plan: Thrombosis of the left popliteal vein, peroneal trunk, gastrocnemius, and posterior tibial veins. Known diagnosis of pulmonary embolism. Subjective Date/time seen: 12/10/20 11:02 Interval history: Feels okay no overnight event. Not on oxygen. Reports dyspnea on exertion. Denies any chest pain Review of Systems Review of Systems: All systems reviewed & are unremarkable except as noted in HPI and below Exam Narrative: GENERAL: The patient is well developed, not in acute distress HEENT: Nonicteric sclerae, PERRLA, EOMI. Oropharynx clear. Moist mucous membranes. Conjunctivae appear well perfused. CHEST: Chest wall is nontender. HEART: Regular rate and rhythm without murmur, rubs, or gallops LUNGS: Clear to auscultation bilaterally. no respiratory distress ABDOMEN: Soft, positive bowel sounds, non-tender, no organomegaly. SKIN: No rash, no excessive bruising, petechiae, or purpura. NEUROLOGIC: Cranial nerves II-XII intact, alert and oriented x 3, no gross motor deficits EXTREMITIES: no edema, cyanosis or clubbing Extrem: General: normal exam except as noted and no edema Objective Data Vital Signs Vital Signs: Vital Signs - 24 hr 12/09/20 14:06 12/09/20 17:12 12/09/20 18:23 Temperature 97 F L Pulse Rate 89 81 92 Respiratory Rate 20 18 18 Blood Pressure 174/104 H 162/79 H 152/83 H Pulse Oximetry 94 99 99 12/09/20 19:20 12/09/20 22:00 12/09/20 23:54 Temperature 99.4 F Pulse Rate 94 78 69 Respiratory Rate 19 15 Blood Pressure 115/77 134/72 Pulse Oximetry 95 97 12/10/20 00:00 12/10/20 01:02 12/10/20 02:00 Temperature Pulse Rate 71 84 84 Respiratory Rate Blood Pressure Pulse Oximetry 12/10/20 03:56 12/10/20 04:00 12/10/20 06:00 Temperature 98.2 F Pulse Rate 71 69 73 Respiratory Rate 14 Blood Pressure 119/71 Pulse Oximetry 96 12/10/20 08:00 12/10/20 08:34 12/10/20 08:46 Temperature 97.1 F L Pulse Rate 67 84 73 Respiratory Rate 22 H Blood Pressure 142/83 H Pulse Oximetry 97 12/10/20 10:00 Temperature Pulse Rate 86 Respiratory Rate Blood Pressure Pulse Oximetry Intake/Output Intake/Output: Intake & Output 11/19
[2020-12-10 13:15] LABS: Partial Thromboplastin Time 55.4 SECONDS (22.3-36.8)
[2020-12-10] MEDS: HEPARIN SOD/D5W 100 UNITS/ML 25,000 UNITS/250 ML BAG 12 UNITS IV CONT (16:02)
[2020-12-10] MEDS: HEPARIN SODIUM 5,000 UNITS/ML VIAL 3000 UNITS IV PUSH (16:03)
[2020-12-10] MEDS: TAMOXIFEN CITRATE (*CHEMO) 10 MG TABLET 20 MG PO (20:08)
[2020-12-10] MEDS: FAMOTIDINE 20 MG TABLET 40 MG PO (20:08)
[2020-12-10 21:45] LABS: Partial Thromboplastin Time 98.9 SECONDS (22.3-36.8)
[2020-12-11 04:23] LABS: Basophils Percent Auto 0.5 % (0.2-1.2); Eosinophils Absolute Auto 0.2 K/mm3 (0-0.3); Eosinophils Percent Auto 3.3 % (0-4.4); Hemoglobin 12.2 g/dL (12.0-15.0); Immature Granulocyte Absolute 0.01 K/mm3 (0.00-0.031); Immature Granulocyte Percent A 0.2 % (0-0.5); Immature Platelet Fraction Pct 5.4 % (0.9-11.2); Lymphocytes Absolute Auto 2.44 K/mm3 (0.9-3.2); Lymphocytes Percent Auto 40.7 % (18.3-44.2); Mean Corpuscular HGB Conc 32.1 g/dl (32-36); Mean Corpuscular Hemoglobin 28.8 pg (26-34); Mean Corpuscular Volume 89.8 fl (80-100); Mean Platelet Volume 11.3 fl (7.4-10.4); Monocytes Absolute Auto 0.6 K/mm3 (0.1-0.6); Monocytes Percent Auto 9.7 % (2.6-8.5); Neutrophils Absolute Auto 2.7 K/mm3 (1.3-6.7); Neutrophils Percent Auto 45.6 % (45.5-73.1); Platelet Count Result 146 k/mm3 (150-375); Red Blood Count 4.23 M/mm3 (4.2-5.4); Red Cell Distribution Width 13.5 % (11.5-14.5)
[2020-12-11 04:33] LABS: Partial Thromboplastin Time 78.5 SECONDS (22.3-36.8)
[2020-12-11] MEDS: APIXABAN 5 MG TABLET 10 MG PO (08:00)
[2020-12-11 08:01] VITALS: PULSE 78
[2020-12-11] MEDS: carvediloL 12.5 MG TABLET PO (08:01)
[2020-12-11] MEDS: TOPIRAMATE 25 MG TABLET 50 MG PO (08:01)
[2020-12-11] MEDS: FLUoxetine HCL 20 MG CAPSULE PO (08:01)
[2020-12-11 08:56] VITALS: BP 146/66; PULSE 66; RESP 20; TEMP 36.6; O2SAT 97
[2020-12-11 09:26] VITALS: O2SAT 93
--- NOTE | 2020-12-11 11:13 | PM.DS ---
DS: Admitting Diagnosis Discharge Date 12/11/2020 Admitting Diagnosis shortness of breath DS: Discharge Diagnosis Discharge Diagnosis (1) Bilateral pulmonary embolism: Code(s): I26.99 - Other pulmonary embolism without acute cor pulmonale Status: Acute Assessment and Plan: The patient was diagnosed with bilateral PE. This could be related to her surgery or immobility.The patient has still been on crutches and partial weight-bearing. And hence Her PE is likely provoked. She also leads a sedentary life. she was started on heparin drip which he tolerated well and was subsequently switched to Eliquis. ECHO Done showed normal ejection fraction with grade 1 diastolic dysfunction mild MR [id number] TR with moderate pulmonary hypertension. She is also on tamoxifen which also increases the risk of DVT/PE. She is taking it for abnormal breast tissue and no definitive cancer in the past that she has been diagnosed with. Advised her to speak with oncologist with benefit risk for continuing tamoxifen There was no signs of hemodynamically unstable 82 due to her PE with no hypotension or hypoxemia throughout her hospital stay (2) Migraine without aura and without status migrainosus, not intractable: Code(s): G43.009 - Migraine without aura, not intractable, without status migrainosus Status: Acute Assessment and Plan: Continue with patient's Topamax and her beta-lula. (3) Essential (primary) hypertension: Code(s): I10 - Essential (primary) hypertension Status: Acute Assessment and Plan: Continue with Coreg (4) GERD (gastroesophageal reflux disease): Code(s): K21.9 - Gastro-esophageal reflux disease without esophagitis Status: Acute Assessment and Plan: Continue with her acid demand planning analyst. (5) Depression with anxiety: Code(s): F41.8 - Other specified anxiety disorders Status: Chronic Assessment and Plan: Continue with fluoxetine (6) DVT (deep venous thrombosis): Code(s): I82.409 - Acute embolism and thrombosis of unspecified deep veins of unspecified lower extremity Status: Acute Assessment and Plan: Thrombosis of the left popliteal vein, peroneal trunk, gastrocnemius, and posterior tibial veins. Known diagnosis of pulmonary embolism. treat with Eliquis DS: Summary Hospital Course Hospital Course: see above Time Spent with Patient Time attestation: Total time spent providing and/or coordinating discharge services: 45 minutes Exam Narrative: GENERAL: The patient is well developed, not in acute distress HEENT: Nonicteric sclerae, PERRLA, EOMI. Oropharynx clear. Moist mucous membranes. Conjunctivae appear well perfused. CHEST: Chest wall is nontender. HEART: Regular rate and rhythm without murmur, rubs, or gallops LUNGS: Clear to auscultation bilaterally. no respiratory distress ABDOMEN: Soft, positive bowel sounds, non-tender, no organomegaly. SKIN: No rash, no excessive bruising, petechiae, or purpura. NEUROLOGIC: Cranial nerves II-XII intact, alert and oriented x 3, no gross motor deficits EXTREMITIES: no edema, cyanosis or clubbing DS: Data Data Completed and Pending Completed studies during hospitalization: Date of Service: 12/10/20 Procedure(s): CA echo doppler color flow Accession Number(s): [id number] cc: Maria Luisa Hernandez APN; Víctor Mathews MD~ Patient Info Name: Triny Alarcon Age: 65 years : 1955 Gender: Female Ht: 64 in Wt: 219 lbs BSA: 2.17 m2 HR: 65 bpm BP: 119 / 71 mmHg Heart Rhythm: Sinus Rhythm Technical Quality: Good Exam Date: 12/10/2020 9:23 AM Exam Location: [facility] Exam Room: [facility]/ Patient Status: Inpatient Admit Date: 12/09/2020 Staff Ordering Physician: Maria Luisa Hernandez NP Dietetic Tech: Ruth Driscoll RDCS Attending
== END 2020-12-11 12:03 | disposition home or self-care (01) | DRG 176 ==
LOC: ANHED 17:30 → ANHIMU 12-11 11:13
PROVIDERS: Internal Medicine; Nurse Practitioner; Admitting Provider Internal Medicine; Emergency Provider Emergency Medicine; PCP Family Medicine; Visit Provider Internal Medicine
DX: I26.99 Other pulmonary embolism without acute cor pulmonale (principal); I82.432 Acute embolism and thrombosis of left popliteal vein; I82.452 Acute embolism and thrombosis of left peroneal vein; I82.442 Acute embolism and thrombosis of left tibial vein; I82.462 Acute embolism and thrombosis of left calf muscular vein; E04.1 Nontoxic single thyroid nodule; G43.009 Migraine without aura, not intractable, without status migrainosus; K21.9 Gastro-esophageal reflux disease without esophagitis; F41.8 Other specified anxiety disorders; M13.861 Other specified arthritis, right knee; I10 Essential (primary) hypertension; E78.2 Mixed hyperlipidemia; Z90.49 Acquired absence of other specified parts of digestive tract; Z90.710 Acquired absence of both cervix and uterus; Z87.891 Personal history of nicotine dependence
CPT/HCPCS: 36415; 71046; 71275; 76536; 80048; 80053; 83735; 83880; 84443; 85025; 85055; 85380; 85610; 85730; 93005; 93306; 93970; 96365; 99285; A9270; J1644; Q9967

== ENCOUNTER → 2021-04-10 12:16 | Outpatient (CLI) | payer OTHER, SELFPAY ==
--- NOTE | ~2021-04-10 | DEXA_ITS ---
Bone Density Report Name: CASSI CELESTE Age: 65 Sex: Female Ethnicity: White Date of : 1955 Indication: postmenopausal; screening for osteoporosis; height loss; hysterectomy; Referring Provider: Jono, Sapphire Piper Study: Bone densitometry was performed. Exam Date: April 10, 2021 Accession number: [id number] Bone Density: Region BMD T-score Z-score Classification AP Spine (L1-L4) 1.186 1.3 2.9 Normal Femoral Neck (Left) 1.037 1.7 3.1 Normal Total Hip (Left) 1.109 1.4 2.5 Normal Femoral Neck (Right) 0.894 0.4 1.9 Normal Total Hip (Right) 1.042 0.8 2.0 Normal Total Hip Mean 1.076 1.1 2.3 Normal World Health Organization criteria for BMD impression classify patients as: Normal (T-score at or above -1.0), Osteopenia (T-score between -1.0 and -2.5), or Osteoporosis (T-score at or below -2.5). 10-year Fracture Risk: FRAX not reported because: All T-scores for Spine Total, Hip Total, Femoral Neck at or above -1.0 Clinical Information Provided by Patient: Has the following medical conditions: Hysterectomy Patient maximum height was 63 Menopause Age: 34 No regular weight bearing exercise Does not regularly consume dairy products Drinks caffeinated beverages Onset of menses at age 16 Number of children 1 Impression: The patient has normal bone mass. Discussion: BONE DENSITY IS ABOVE THE MINIMUM DESIRABLE LEVEL AT ALL SKELETAL SITES TESTED. This patient?s bone mineral density is above the minimum desirable level (T-score -1.0 or better) at all sites measured. The patient should follow a healthful lifestyle (good nutrition with adequate calcium and vitamin D, and appropriate weight-bearing exercise). Follow-Up: Consider repeating this study in 5 years or sooner if there is some new clinical indication. Reported by: FRANCESCO on 04/10/2021 1:01:00 PM. Reviewed, dictated and finalized at location AMessi BRAVO
== END ==
PROVIDERS: PCP Family Medicine; Visit Provider Nurse Practitioner Obstetrics & Gynecology
DX: Z13.820 Encounter for screening for osteoporosis (principal)
CPT/HCPCS: 77080

== ENCOUNTER → 2021-04-10 12:18 | Outpatient (CLI) | payer OTHER, SELFPAY ==
--- NOTE | ~2021-04-10 | US_ITS ---
EXAMINATION:US venous doppler LE LT INDICATION:Follow-up DVT of the left leg TECHNIQUE: Multiple grayscale, color flow and Doppler images of the left lower extremity deep venous systems were obtained and reviewed. COMPARISON:12/10/2020 FINDINGS: There is chronic deep venous thrombosis of the left popliteal, gastrocnemius and peroneal v eins. Remainder of the left lower extremity veins are patent. IMPRESSION: 1: Chronic deep venous thrombosis of the left popliteal, peroneal and gastrocnemius veins. Reviewed, dictated and finalized at location B. STANT MEN'S LACROSSE COACH IMPRESSION: 1: Chronic deep venous thrombosis of the left popliteal, peroneal and gastrocne mius veins.
== END ==
PROVIDERS: PCP Family Medicine; Visit Provider Internal Medicine Hematology & Oncology
DX: I82.432 Acute embolism and thrombosis of left popliteal vein (principal); I82.452 Acute embolism and thrombosis of left peroneal vein; I82.462 Acute embolism and thrombosis of left calf muscular vein; I82.4Y2 Acute embolism and thrombosis of unspecified deep veins of left proximal lower extremity
CPT/HCPCS: 93971

== ENCOUNTER 2021-04-21 09:11 | Outpatient (CLI) | payer OTHER, SELFPAY ==
[2021-04-21 09:39] LABS: Basophils Percent Auto 0.4 % (0.2-1.2); Eosinophils Absolute Auto 0.1 K/mm3 (0-0.3); Eosinophils Percent Auto 1.8 % (0-4.4); Hematocrit 44.4 % (37.0-47.0); Hemoglobin 13.4 g/dL (12.0-15.0); Immature Granulocyte Absolute 0.01 K/mm3 (0.00-0.031); Immature Granulocyte Percent A 0.2 % (0-0.5); Lymphocytes Absolute Auto 2.07 K/mm3 (0.9-3.2); Lymphocytes Percent Auto 36.8 % (18.3-44.2); Mean Corpuscular HGB Conc 30.2 g/dl (32-36); Mean Corpuscular Volume 92.9 fl (80-100); Mean Platelet Volume 10.9 fl (7.4-10.4); Monocytes Absolute Auto 0.6 K/mm3 (0.1-0.6); Monocytes Percent Auto 10.1 % (2.6-8.5); Neutrophils Absolute Auto 2.9 K/mm3 (1.3-6.7); Neutrophils Percent Auto 50.7 % (45.5-73.1); Platelet Count Result 168 k/mm3 (150-375); Red Blood Count 4.78 M/mm3 (4.2-5.4); Red Cell Distribution Width 13.4 % (11.5-14.5); White Blood Count 5.6 K/mm3 (4.5-10.0)
[2021-04-21 09:43] LABS: Blood Urea Nitrogen 14 mg/dL (8-26); Carbon Dioxide 25 mmol/L (22-30); Chloride 107 mmol/L (98-109); Estimated Glomerular Filt Rate > 60; Glucose 101 mg/dL (70-105); Potassium 4.4 mmol/L (3.5-4.9); Sodium 144 mmol/L (138-146)
[2021-04-21 13:42] LABS: Alanine Aminotransferase 20 U/L (4-35); Albumin Level 4.1 g/dL (3.5-5.1); Alkaline Phosphatase 75 U/L (38-126); Anion Gap 7 mmol/L (8-16); Aspartate Amino Transferase 23 U/L (14-36); Bilirubin,Total 0.5 mg/dL (0.2-1.3); Blood Urea Nitrogen 14 mg/dL (7-17); Calcium 8.9 mg/dL (8.4-10.2); Carbon Dioxide 25 mmol/L (22-30); Chloride 108 mmol/L (98-107); Estimated Glomerular Filt Rate > 60; Glucose 103 mg/dL (65-110); Potassium 4.4 mmol/L (3.4-5.0); Sodium 140 mmol/L (137-145)
== END 2021-04-21 09:12 | disposition home or self-care (01) ==
LOC: ANHLAB 09:12
PROVIDERS: PCP Family Medicine; Visit Provider Internal Medicine Hematology & Oncology
DX: D24.2 Benign neoplasm of left breast (principal)
CPT/HCPCS: 36415; 80053; 85025

== ENCOUNTER 2021-05-01 16:08 | Observation (INO) | payer OTHER, SELFPAY ==
[2021-05-01] VITALS (28 sets, daily range): BP systolic 123–162; BP diastolic 63–94; PULSE 50–70; RESP 13–25; TEMP 36.4; O2SAT 97–100
--- NOTE | ~2021-05-01 | XR_ITS ---
EXAMINATION: XR chest 2V 05/01/2021 16:40 INDICATION: Shortness of breath and cough PROCEDURE: 2 view chest COMPARISON: 12/09/2020 FINDINGS: The lungs are clear. The cardiomediastinal silhouette is within normal limits. There are no pleural effusions. There is no pneumothorax suspected. IMPRESSION: 1: NO ACUTE CARDIOPULMONARY DISEASE. Reviewed, dictated and finalized at location B.
--- NOTE | ~2021-05-01 | CT_ITS ---
EXAMINATION: CTA chest PE protocol DATE: 05/01/2021 18:37 INDICATION: Chest pain and shortness of breath. Productive cough. History of pulmonary embolism. TECHNIQUE: Computed tomography angiography (CTA) of the chest was performed with 100 mL Omnipaque-350 intravenous contrast timed to evaluate the pulmonary arteries. Coronal maximum intensity projection 3D-reconstructions were created by the technologist. Automated exposure control and iterative reconst ruction technique were employed. Exam dose: 578.45 mGy-cm total exam DLP. COMPARISON: 05/01/2021 PA and lateral chest 12/09/2020 CT pulmonary scan FINDINGS: There is diagnostic contrast enhancement of the pulmonary arteries and no evidence of pulmo nary emboli. There is resolution of extensive bilateral pulmonary emboli compared to 12/09/2020. No thoracic aortic aneurysm or dissection. Bilateral thyroid masses are again noted. Normal heart size. No pericardial or pleural effusion. Status post cholecystectomy. Hepatic steatosis. The adrenal glands are normal. No suspicious osteolytic or osteoblastic lesions. IMPRESSION: No evidence of pulmonary embolism Reviewed, dictated and finalized at Location A. Reviewed, dictated and finalized at location A.
--- NOTE | 2021-05-01 16:20 | ECG_ITS ---
Measurements Intervals [place] Rate: 65 P: 14 CA: 150 QRS: -10 QRSD: 86 T: 47 QT: 408 QTc: 426 Interpretive Statements SINUS RHYTHM MODERATE VOLTAGE CRITERIA FOR LVH, CONSIDER NORMAL VARIANT [MEETS CRITERIA IN ONE OF: R(aVL), S(V1), R(V5), R(V5/V6)+S(V1)] COMPARED TO ECG 12/09/2020 14:28:04 NO SIGNIFICANT CHANGES Electronically Signed On 05-02-2021 11:50:54 CDT by Candace Bishop M.D.
[2021-05-01 16:36] LABS: Basophils Percent Auto 0.5 % (0.2-1.2); Eosinophils Absolute Auto 0.1 K/mm3 (0-0.3); Eosinophils Percent Auto 1.8 % (0-4.4); Hematocrit 42.5 % (37.0-47.0); Hemoglobin 13.4 g/dL (12.0-15.0); Immature Granulocyte Absolute 0.01 K/mm3 (0.00-0.031); Immature Granulocyte Percent A 0.2 % (0-0.5); Lymphocytes Percent Auto 36.6 % (18.3-44.2); Mean Corpuscular HGB Conc 31.5 g/dl (32-36); Mean Corpuscular Hemoglobin 28.4 pg (26-34); Monocytes Absolute Auto 0.8 K/mm3 (0.1-0.6); Monocytes Percent Auto 11.6 % (2.6-8.5); Neutrophils Absolute Auto 3.2 K/mm3 (1.3-6.7); Neutrophils Percent Auto 49.3 % (45.5-73.1); Platelet Count Result 177 k/mm3 (150-375); Red Blood Count 4.72 M/mm3 (4.2-5.4); Red Cell Distribution Width 13.5 % (11.5-14.5); White Blood Count 6.6 K/mm3 (4.5-10.0)
[2021-05-01 16:46] LABS: INR 1.1; Prothrombin Time 13.9 Seconds (11.1-14.7)
[2021-05-01 16:47] LABS: Partial Thromboplastin Time 29.7 SECONDS (22.3-36.8)
--- NOTE | 2021-05-01 17:23 | ED.SOB ---
HPI - SOB/Dyspnea General Chief Complaint: Shortness of Breath/Dyspnea <Nikki Long PA-C - Last Filed: 05/02/21 01:24> Stated Complaint: shortness of breath <PK Hurtado Last Filed: 05/02/21 01:24> Time Seen by Provider: 05/01/21 16:54 <Nikki Long PA-C - Last Filed: 05/02/21 01:24> Source: patient <PK Hurtado Last Filed: 05/02/21 01:24> Mode of arrival: ambulatory <PK Hurtado Last Filed: 05/02/21 01:24> Limitations: no limitations <PK Hurtado Last Filed: 05/02/21 01:24> History of Present Illness HPI Narrative: Patient is 65-year-old female who presents to the ED with complaints of shortness of breath, worse with exertion, x 5 days. Patient reports she noticed having increased shortness of breath with exertion and laying flat since mid last week. She is currently using crutches to assist with ambulation as she is waiting to have her right knee replaced. Patient also reports having midsternal chest pain, worse with deep inspiration and laying flat, and a cough over the weekend. She notes the cough has been productive occasionally of brown sputum, but she denies any bright red hemoptysis. Patient also denies any increased swelling in her legs, calf pain, hemoptysis, nausea, vomiting, fever, congestion, sore throat. Patient has a history of bilateral PEs and LLE DVT in November 2020 and reports her current symptoms feel similar to her PE. She is currently on Eliquis 5 mg for this and has not missed any recent doses. She sees Dr. Peter, Hematology for this. Patient reports having an ultrasound of her left lower extremity on 04/10, which showed chronic deep vein thrombosis of left popliteal, peroneal and gastrocnemius veins. These are felt to be stable since November 2020. Patient also mentions having COVID in February. <PK Hurtado Last Filed: 05/02/21 01:24> Related Data Home Medications: Home Medications Medication Instructions Recorded Confirmed famotidine [Pepcid] 20 mg PO BID 05/02/21 05/02/21 <Nikki Long PA-C - Last Filed: 05/02/21 01:24> Allergies/Adverse Reactions: Allergies Allergy/AdvReac Type Severity Reaction Status Date / Time No Known Allergies Allergy Verified 05/01/21 16:57 <Nikki Long PA-C - Last Filed: 05/02/21 01:24> Review of Systems Review of Systems: CONSTITUTIONAL: Denies fever, chills, or sweats. ENT: Denies rhinorrhea, congestion. CARDIOVASCULAR: Reports midsternal chest pain worse with deep inspiration/laying flat Denies palpitations, or BLE edema. RESPIRATORY: Reports cough, productive of brown sputum and shortness of breath, worse w/ exertion, orthopnea. Denies hemoptysis. GASTROINTESTINAL: Denies abdominal pain, nausea, vomiting, or diarrhea. MUSCULOSKELETAL: Denies back pain, BLE pain. NEUROLOGIC: Denies headache, numbness, or weakness. <Nikki Long PA-C - Last Filed: 05/02/21 01:24> All systems reviewed & are unremarkable except as noted in HPI and below <Nikki Long PA-C - Last Filed: 05/02/21 01:24> [facility] Past Medical History Medical History: Medical History Abnormal breast tissue Abnormal fasting glucose glucose 102 with hemoglobin A1c 5.6 on 04/06/2021 Acute medial meniscus tear of right knee Acute non-recurrent maxillary sinusitis Arthritis of right knee BMI 38.0-38.9,adult Body mass index (BMI) of 40.1 to 44.9 in adult Cellulitis Chronic headaches Chronic low back pain with right-sided sciatica Colon polyp, hyperplastic Depression with anxiety Dysuria Elevated TSH repeat TSH normal at 1.93 with free T4 0.9 on 04/06/2021 Encounter for Postoperative Care Essential (primary) hypertension Frozen shoulder (~2011) GERD (gastroesophageal reflux disease) History of migraine headaches Hypertension Knee effusion, right Menopausal symptoms Migraine without aura and without status migrai
[2021-05-01 18:14] LABS: Alanine Aminotransferase 21 U/L (4-35); Albumin Level 3.9 g/dL (3.5-5.1); Alkaline Phosphatase 79 U/L (38-126); Anion Gap 4 mmol/L (8-16); Aspartate Amino Transferase 27 U/L (14-36); Bilirubin,Total 0.5 mg/dL (0.2-1.3); Blood Urea Nitrogen 13 mg/dL (7-17); Calcium 8.5 mg/dL (8.4-10.2); Carbon Dioxide 26 mmol/L (22-30); Chloride 110 mmol/L (98-107); Estimated CRCL calculation 60 ml/min; Estimated Glomerular Filt Rate > 60; Glucose 121 mg/dL (65-110); Lipase 145 U/L (23-300); Potassium 3.8 mmol/L (3.4-5.0); Sodium 140 mmol/L (137-145)
--- NOTE | 2021-05-01 18:14 | PC.NURSE ---
Lab called regarding the patient's chemistry and Troponin baseline, lab reports that they are running now and should result soon.
[2021-05-01 18:31] LABS: Troponin I < 0.012 ng/mL (0.000-0.034)
[2021-05-01 21:27] LABS: Troponin I < 0.012 ng/mL (0.000-0.034)
[2021-05-01 21:36] LABS: NT Pro B Type Natriuretic Pept 81 pg/mL (5-100)
[2021-05-02] VITALS (13 sets, daily range): BP systolic 133–169; BP diastolic 64–78; PULSE 57–85; RESP 18; TEMP 35.7–36.2; O2SAT 97–99; BMI 41.0
--- NOTE | 2021-05-02 | ECHO_ITS ---
Patient Info Name: Triny Alarcon Age: 65 years : 1955 Gender: Female Ht: 61 in Wt: 216 lbs BSA: 2.11 m2 HR: 64 bpm BP: 133 / 78 mmHg Heart Rhythm: Sinus Rhythm Technical Quality: Fair Exam Date: 05/02/2021 9:36 AM Exam Location: [facility] Patient Status: Outpatient Admit Date: 05/01/2021 Staff Ordering Physician: Lawrence Haro Plush Brusher: Arleen Ortiz RDCS Attending Provider: Catie Jesus DO Referring Physician: Tahir BORGES; Exam Type: CA echo doppler color flow Study Info Indications - DYSPNEA Complete two-dimensional, color flow and Doppler transthoracic echocardiogram is performed. Summary 1. Complete two-dimensional, color flow and Doppler transthoracic echocardiogram is performed. 2. Normal left ventricular size and thickness with good contractility of all segments. The ejection fraction was 67%. Normal diastolic function. No segmental wall motion abnormalities. 3. No significant valve disease. 4. Normal estimated pulmonary pressure. 5. Normal sinus rhythm. Left Ventricle Left ventricular chamber dimension is normal. Left ventricular systolic function is normal, estimated at 65-70%. There is no increased left ventricular wall thickness. Left ventricular septal wall motion is normal. The left ventricular diastolic function is normal. Right Ventricle Right ventricular chamber dimension is normal. Right ventricular systolic function is normal. Left Atria Left atrial chamber dimension is normal. Right Atria Right atrial chamber dimension is normal. Aortic Valve The aortic valve is trileaflet. There is no aortic valve sclerosis. There is no aortic valve stenosis. There is no aortic valve regurgitation. Pulmonic Valve The pulmonic valve is normal. There is no pulmonic valve stenosis. There is no pulmonic regurgitation. Mitral Valve The mitral valve has normal leaflets. There is no mitral valve stenosis. There is no mitral valve regurgitation. Tricuspid Valve The tricuspid valve leaflets are normal. There is no significant tricuspid valve stenosis. There is trace tricuspid valve regurgitation. No pulmonary hypertension, estimated pulmonary arterial systolic pressure is 34 mmHg. Pericardium/Pleural The pericardium appears normal. There is no pericardial effusion. Inferior Vena Cava Normal inferior vena cava with >50% collapse upon inspiration consistent with Empty right atrial pressure, 10 mmHg. Aorta The aortic root size at the sinus of Valsalva is normal. The prox ascending aorta size is normal. Left Ventricular Outflow Tract Name Value Normal LVOT 2D LVOT Diameter 2.0 cm LVOT Doppler LVOT Peak Gradient 6 mmHg LVOT Mean Gradient 2 mmHg LVOT VTI 26 cm LVOT VTI/AV VTI Ratio 0.9 LVOT Stroke Volume 79 ml LVOT CO 4.9 l/min LVOT CI 2.3 l/min/m2 Pulmonic Valve
[2021-05-02 00:19] LABS: Troponin I < 0.012 ng/mL (0.000-0.034)
--- NOTE | 2021-05-02 01:43 | ADMGEN ---
This patient, Triny Alarcon, was admitted to [facility] Surg Room 309-01. Patient/family oriented to hospital policies and general routines including ID bracelet, bed and alarms, visiting hours, pain management, procedures, bathroom and other care routines, personal items, smoking policy, room service/diet, and visiting hours. Information on how to activate the Rapid Response Team has been discussed. Patient/Family are encouraged to report perceived risks to care and to ask questions if they do not understand what they are told or what they should do.
--- NOTE | 2021-05-02 08:21 | PC.NURSE ---
pt medication restarted this morning, called pharmacy for medication, awaiting arrival of medication for pt.
[2021-05-02] MEDS: FAMOTIDINE 20 MG TABLET PO ×2 (08:41→16:17)
[2021-05-02] MEDS: APIXABAN 5 MG TABLET PO ×2 (08:42→16:17)
[2021-05-02] MEDS: carvediloL 12.5 MG TABLET PO ×2 (08:42→19:52)
[2021-05-02] MEDS: FLUoxetine HCL 20 MG CAPSULE PO (08:42)
[2021-05-02] MEDS: TOPIRAMATE 25 MG TABLET 50 MG PO ×2 (08:42→16:17)
--- NOTE | 2021-05-02 13:45 | PM.IMHP ---
H&P: HPI History of Present Illness Date/Time: 05/02/21 07:44 Chief Complaint: Shortness of breath Narrative: Patient is 62-year-old female with past medical history chronic DVT PE cellulitis hypertension thyroid nodules, pulmonary hypertension presented the ED complaints shortness of breath for 5 days. Patient reports that she is unable lay flat she is unable take a deep breath this time. She does have history of PE DVT however CT was did not show any time. Patient denies hemoptysis however she does state that she has a productive cough which is producing brown sputum. Patient also stated that when she does Spiriva and gets short of breath it does hurt and cause it have sternal chest pain. She said that her shortness of breath trends and hyperventilation and she is unable to lay flat at that time. Patient denies any sweats, fevers, chills, nausea, vomiting, abdominal pain, diarrhea, constipation she did state that her cough used to produce however now is more of a dry cough. She denies any headaches, visual changes, falls. She did state that she does get a little dizzy especially when walking. She also stated that she has a knee repair however with insurance she is unable to the get that done at this time. She does states she feels little bit better. She also has 2+ pitting edema in the bilateral lower extremities she denies any edema or abnormal swelling. Talked to the patient about possibly taking some Lasix which she stated she would try. Review of Systems Review of Systems: All systems reviewed & are unremarkable except as noted in HPI and below [facility] Past Medical History Medical History Acute medial meniscus tear of right knee Acute non-recurrent maxillary sinusitis Arthritis of right knee Body mass index (BMI) of 40.1 to 44.9 in adult Colon polyp, hyperplastic Depression with anxiety Elevated TSH repeat TSH normal at 1.93 with free T4 0.9 on 04/06/2021 Essential (primary) hypertension Frozen shoulder (~2011) GERD (gastroesophageal reflux disease) History of migraine headaches Hypertension Knee effusion, right Migraine without aura and without status migrainosus, not intractable Mixed hyperlipidemia total cholesterol 145, triglycerides 140, HDL 43 and LDL 78 on 10/21/2019 Multiple thyroid nodules (12/09/20) multi nodular goiter ultrasound thyroid 12/12/2020 with recheck in 1 year Pulmonary hypertension (12/10/20) moderate pulmonary hypertension on echocardiogram 12/10/2020 with ejection fraction 55-60% with grade 1 diastolic dysfunction and mild mitral valve regurgitation and moderate tricuspid valve regurgitation Right knee DJD Seasonal allergic rhinitis TMJ (dislocation of temporomandibular joint) (~1979) Surgical History Surgical History H/O arthroscopy of right knee H/O breast biopsy H/O colonoscopy with polypectomy H/O knee surgery (~1979) H/O: hysterectomy (~1984) History of bunionectomy (~1998) bilateral History of placement of ear tubes History of shoulder surgery History of sinus surgery (~2004) History of surgery TMJ surgery Hx of cholecystectomy (~1999) Hx of tonsillectomy Family History Family History Mother Cerebrovascular accident Dementia Father Diabetes mellitus Hypertension CHF (congestive heart failure) Grandparent Heart disease Grandparent Heart disease Grandparent Cerebrovascular accident Grandparent Automobile accident Other Arthritis Kidney disorder Social History Social History (Updated 05/02/21 @ 14:46 by PANKAJ Hernandez) Social History: The patient has 1 child. She works for a [employer] company which is called [email or web address]. 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 Patient is a former smoker and quit many years ago. She lives with her Rich
--- NOTE | 2021-05-02 16:10 | PCRCNOTE ---
Consult to Respiratory order entered 05/01/21 at 2305 stated needs home O2. Pt currently on Room air, spoke to Gavin Haro. said he will enter home O2 eval if needed close to D/C
[2021-05-03] VITALS (8 sets, daily range): BP systolic 119–130; BP diastolic 62–69; PULSE 61–77; RESP 18; TEMP 35.5–36.4; O2SAT 96–98
[2021-05-03] MEDS: TOPIRAMATE 25 MG TABLET 50 MG PO (08:18)
[2021-05-03] MEDS: APIXABAN 5 MG TABLET PO (08:18)
[2021-05-03] MEDS: FAMOTIDINE 20 MG TABLET PO (08:18)
[2021-05-03] MEDS: carvediloL 12.5 MG TABLET PO (08:18)
[2021-05-03] MEDS: FLUoxetine HCL 20 MG CAPSULE PO (08:18)
[2021-05-03 09:00] LABS: Basophils Percent Auto 0.4 % (0.2-1.2); Eosinophils Absolute Auto 0.2 K/mm3 (0-0.3); Eosinophils Percent Auto 2.8 % (0-4.4); Hematocrit 43.7 % (37.0-47.0); Hemoglobin 13.5 g/dL (12.0-15.0); Immature Granulocyte Absolute 0.02 K/mm3 (0.00-0.031); Immature Granulocyte Percent A 0.4 % (0-0.5); Lymphocytes Absolute Auto 1.86 K/mm3 (0.9-3.2); Lymphocytes Percent Auto 34.8 % (18.3-44.2); Mean Corpuscular HGB Conc 30.9 g/dl (32-36); Mean Corpuscular Volume 90.5 fl (80-100); Mean Platelet Volume 11.1 fl (7.4-10.4); Monocytes Absolute Auto 0.5 K/mm3 (0.1-0.6); Neutrophils Absolute Auto 2.8 K/mm3 (1.3-6.7); Neutrophils Percent Auto 52.6 % (45.5-73.1); Platelet Count Result 178 k/mm3 (150-375); Red Blood Count 4.83 M/mm3 (4.2-5.4); Red Cell Distribution Width 13.3 % (11.5-14.5); White Blood Count 5.3 K/mm3 (4.5-10.0)
[2021-05-03 09:02] LABS: Alanine Aminotransferase 20 U/L (4-35); Albumin Level 3.9 g/dL (3.5-5.1); Alkaline Phosphatase 79 U/L (38-126); Anion Gap 6 mmol/L (8-16); Aspartate Amino Transferase 24 U/L (14-36); Bilirubin,Total 0.5 mg/dL (0.2-1.3); Blood Urea Nitrogen 11 mg/dL (7-17); Calcium 8.7 mg/dL (8.4-10.2); Carbon Dioxide 24 mmol/L (22-30); Chloride 110 mmol/L (98-107); Estimated CRCL calculation 67 ml/min; Estimated Glomerular Filt Rate > 60; Glucose 127 mg/dL (65-110); Potassium 4.1 mmol/L (3.4-5.0); Sodium 140 mmol/L (137-145)
--- NOTE | 2021-05-03 10:00 | P.DS_ITS ---
DS: Admitting Diagnosis Discharge Date 05/03/21 1000 Admitting Diagnosis Shortness of breath DS: Discharge Diagnosis Discharge Diagnosis (1) BAIRD (dyspnea on exertion): Code(s): R06.00 - Dyspnea, unspecified Status: Acute Assessment and Plan: * Reports inability to take a deep breath or lay flat * Denies increased swelling or sign and symptoms of DVT * Chest xray shows no acute abnormality * CTA with no evidence of PE * Does have pulmonary hypertension * BNP 83 * Continue Eliquis * Last echo shows EF of 55-60% with grade 1 diastolic dysfunction, Pulm HTN 58 * Repeat Echo shows EF of 67% with no diastolic dysfunction * Monitor respiratory status * Sputum culture (2) Pulmonary hypertension: Onset Date: 12/10/20 Code(s): I27.20 - Pulmonary hypertension, unspecified Status: Acute Assessment and Plan: * Noted on the Echo of 34 * Could be the reason for the shortness of breath * Repeat echo * Probably benefit from an apnea link * Will also need a sleep study (3) Multiple thyroid nodules: Onset Date: 12/09/20 Code(s): E04.2 - Nontoxic multinodular goiter Status: Acute Assessment and Plan: * Seen on the CT and found last Nov. * Outpatient follow up needed (4) Essential (primary) hypertension: Code(s): I10 - Essential (primary) hypertension Status: Acute Assessment and Plan: * Current BP is 130/62 * Continue home carvedilol * Trend BP * Adjust therapy as indicated (5) Fluid overload: Code(s): E87.70 - Fluid overload, unspecified Status: Acute Assessment and Plan: * echo EF of 67 with no diastolic dysfunction * Trend fluid status * Daily weights * Lasix x 1 DS: Summary Hospital Course Hospital Course: Patient is a 65-year-old female with a past medical history of chronic migraines, DVT PE, hypertension, hyperthyroidism, pulmonary hypertension who presented to the ED for shortness of breath x5 days. Patient stated that she would have dyspnea upon exertion with any small activity. CT of the chest was done and did not show any PE or any others reasons for shortness of breath. Chest x-ray showed no acute abnormality. Echo was also performed which a previous echo done showed pulmonary hypertension however the repeat echo shows an EF 67% with no diastolic dysfunction and a pulmonary artery pressure of 34. This seems to have improved. Patient did have some bilateral lower extremity edema in which 1 dose of Lasix was given. Labs are stable and patient is stable for discharge at this time patient denies any chest pain, shortness of breath, nausea, vomiting, diarrhea, constipation, weakness, fatigue. Status at Discharge Functional status at discharge: uses cane/walker Overall status at discharge: patient is progressing back to baseline Time Spent with Patient Time attestation: Total time spent providing and/or coordinating discharge services: 34 minutes Time spent: Greater than 30 minutes Specific discharge activities: Diagnostic testing, chart review, developing a treatment plan, education, care coordination documentation, physical exam, result review Exam Const: General: cooperative, healthy appearing, no acute distress, well developed, alert and awake Nutritional Appearance: well nourished Orientation/consciousness: patient oriented x3 Limitations: no limitations HENMT: Head: normal to inspection Ears: h
--- NOTE | 2021-05-03 10:00 | PM.DS ---
DS: Admitting Diagnosis Discharge Date 05/03/21 1000 Admitting Diagnosis Shortness of breath DS: Discharge Diagnosis Discharge Diagnosis (1) BAIRD (dyspnea on exertion): Code(s): R06.00 - Dyspnea, unspecified Status: Acute Assessment and Plan: Reports inability to take a deep breath or lay flat Denies increased swelling or sign and symptoms of DVT Chest xray shows no acute abnormality CTA with no evidence of PE Does have pulmonary hypertension BNP 83 Continue Eliquis Last echo shows EF of 55-60% with grade 1 diastolic dysfunction, Pulm HTN 58 Repeat Echo shows EF of 67% with no diastolic dysfunction Monitor respiratory status Sputum culture (2) Pulmonary hypertension: Onset Date: 12/10/20 Code(s): I27.20 - Pulmonary hypertension, unspecified Status: Acute Assessment and Plan: Noted on the Echo of 34 Could be the reason for the shortness of breath Repeat echo Probably benefit from an apnea link Will also need a sleep study (3) Multiple thyroid nodules: Onset Date: 12/09/20 Code(s): E04.2 - Nontoxic multinodular goiter Status: Acute Assessment and Plan: Seen on the CT and found last Nov. Outpatient follow up needed (4) Essential (primary) hypertension: Code(s): I10 - Essential (primary) hypertension Status: Acute Assessment and Plan: Current BP is 130/62 Continue home carvedilol Trend BP Adjust therapy as indicated (5) Fluid overload: Code(s): E87.70 - Fluid overload, unspecified Status: Acute Assessment and Plan: echo EF of 67 with no diastolic dysfunction Trend fluid status Daily weights Lasix x 1 DS: Summary Hospital Course Hospital Course: Patient is a 65-year-old female with a past medical history of chronic migraines, DVT PE, hypertension, hyperthyroidism, pulmonary hypertension who presented to the ED for shortness of breath x5 days. Patient stated that she would have dyspnea upon exertion with any small activity. CT of the chest was done and did not show any PE or any others reasons for shortness of breath. Chest x-ray showed no acute abnormality. Echo was also performed which a previous echo done showed pulmonary hypertension however the repeat echo shows an EF 67% with no diastolic dysfunction and a pulmonary artery pressure of 34. This seems to have improved. Patient did have some bilateral lower extremity edema in which 1 dose of Lasix was given. Labs are stable and patient is stable for discharge at this time patient denies any chest pain, shortness of breath, nausea, vomiting, diarrhea, constipation, weakness, fatigue. Status at Discharge Functional status at discharge: uses cane/walker Overall status at discharge: patient is progressing back to baseline Time Spent with Patient Time attestation: Total time spent providing and/or coordinating discharge services: 34 minutes Time spent: Greater than 30 minutes Specific discharge activities: Diagnostic testing, chart review, developing a treatment plan, education, care coordination documentation, physical exam, result review Exam Const: General: cooperative, healthy appearing, no acute distress, well developed, alert and awake Nutritional Appearance: well nourished Orientation/consciousness: patient oriented x3 Limitations: no limitations HENMT: Head: normal to inspection Ears: hearing grossly normal bilaterally General nose exam: Normal external nose present Mouth: Yes Normal oral and palatal mucosa present, Yes lip normal and Yes tongue normal Teeth and gingiva: abnormal tooth and associated gingiva and poor dentition Eyes: General: appearance normal, both eyes and all related structures Neck: Neck: normal visual inspection, full ROM, trachea midline and supple Chest: Chest palpation & inspection: normal inspection of the chest Resp: Effort & Inspection: normal res
[2021-05-03] MEDS: FUROSEMIDE INJ 40 MG/4 ML VIAL IV PUSH (10:26)
[2021-05-03 11:15] LABS: SARS-CoV-2 RNA PCR Negative
[2021-05-03] MEDS: ACETAMINOPHEN 500 MG TABLET 1000 MG PO (13:45)
== END 2021-05-03 16:05 | disposition home or self-care (01) ==
LOC: ANHED 23:08 → ANH3MEDSUR 05-02 11:15
PROVIDERS: Physician Assistant; Admitting Provider Internal Medicine; Emergency Provider Emergency Medicine; PCP Family Medicine; Visit Provider Nurse Practitioner
DX: E87.70 Fluid overload, unspecified (principal); R06.00 Dyspnea, unspecified; R09.02 Hypoxemia; I27.20 Pulmonary hypertension, unspecified; I82.502 Chronic embolism and thrombosis of unspecified deep veins of left lower extremity; E04.2 Nontoxic multinodular goiter; I10 Essential (primary) hypertension; K21.9 Gastro-esophageal reflux disease without esophagitis; F41.8 Other specified anxiety disorders; E78.2 Mixed hyperlipidemia; Z87.891 Personal history of nicotine dependence; Z86.711 Personal history of pulmonary embolism; Z79.01 Long term (current) use of anticoagulants; Z20.822 Contact with and (suspected) exposure to COVID-19
CPT/HCPCS: 36415; 71046; 71275; 80053; 83690; 83735; 83880; 84484; 85025; 85610; 85730; 93005; 93306; 94762; 96365; 96374; 97161; 97165; 99285; A9270; C9803; G0378; J0131; J1940; Q9967; U0003; U0005

== ENCOUNTER → 2021-06-16 11:13 | Outpatient (CLI) | payer OTHER, SELFPAY ==
--- NOTE | ~2021-06-16 | US_ITS ---
EXAMINATION: US venous doppler [facility] DATE: 06/16/2021 11:39 INDICATION: Acute deep vein thrombosis of proximal vein of left lower extremity. TECHNIQUE: Grayscale ultrasound images without and with compression and Doppler ultrasound images of the left lower extremity veins were obtained. COMPARISON: Ultrasound 04/10/2021 FINDINGS: The visualized portions of left common femoral vein, profunda (deep) femoral vein, femoral vein, post erior tibial veins, and greater saphenous vein outflow are patent. There is thrombus in left poplitea l, peroneal, and gastrocnemius veins. IMPRESSION: 1. Stable deep vein thrombosis involving left popliteal, peroneal, and gastrocnemius veins. Reviewed, dictated and finalized at location A. IMPRESSION: 1. Stable deep vein thrombosis involving left popliteal, peroneal, and gastroc nemius veins.
== END ==
PROVIDERS: PCP Family Medicine; Visit Provider Internal Medicine Hematology & Oncology
DX: I82.452 Acute embolism and thrombosis of left peroneal vein (principal); I82.432 Acute embolism and thrombosis of left popliteal vein; I82.462 Acute embolism and thrombosis of left calf muscular vein
CPT/HCPCS: 93971

== ENCOUNTER 2021-06-22 10:43 | Outpatient (CLI) | payer OTHER, SELFPAY ==
[2021-06-22 11:04] LABS: Basophils Percent Auto 0.5 % (0.2-1.2); Eosinophils Absolute Auto 0.1 K/mm3 (0-0.3); Eosinophils Percent Auto 2.1 % (0-4.4); Hematocrit 42.6 % (37.0-47.0); Hemoglobin 12.8 g/dL (12.0-15.0); Immature Granulocyte Absolute 0.02 K/mm3 (0.00-0.031); Immature Granulocyte Percent A 0.3 % (0-0.5); Lymphocytes Absolute Auto 2.43 K/mm3 (0.9-3.2); Lymphocytes Percent Auto 41.7 % (18.3-44.2); Mean Corpuscular Hemoglobin 27.8 pg (26-34); Mean Corpuscular Volume 92.6 fl (80-100); Mean Platelet Volume 11.1 fl (7.4-10.4); Monocytes Absolute Auto 0.6 K/mm3 (0.1-0.6); Monocytes Percent Auto 9.9 % (2.6-8.5); Neutrophils Absolute Auto 2.7 K/mm3 (1.3-6.7); Neutrophils Percent Auto 45.5 % (45.5-73.1); Platelet Count Result 170 k/mm3 (150-375); White Blood Count 5.8 K/mm3 (4.5-10.0)
[2021-06-22 11:08] LABS: Blood Urea Nitrogen 21 mg/dL (8-26); Carbon Dioxide 24 mmol/L (22-30); Chloride 108 mmol/L (98-109); Estimated Glomerular Filt Rate > 60; Glucose 101 mg/dL (70-105); Ionized Calcium (POC) 1.26 mmol/L (1.11-1.31); Potassium 4.2 mmol/L (3.5-4.9); Sodium 143 mmol/L (138-146)
[2021-06-23 06:15] LABS: Alanine Aminotransferase 19 U/L (4-35); Albumin Level 3.6 g/dL (3.5-5.1); Alkaline Phosphatase 76 U/L (38-126); Anion Gap 5 mmol/L (8-16); Aspartate Amino Transferase 22 U/L (14-36); Bilirubin,Total 0.3 mg/dL (0.2-1.3); Blood Urea Nitrogen 22 mg/dL (7-17); Calcium 8.8 mg/dL (8.4-10.2); Carbon Dioxide 25 mmol/L (22-30); Chloride 110 mmol/L (98-107); Estimated Glomerular Filt Rate > 60; Glucose 101 mg/dL (65-110); Potassium 4.2 mmol/L (3.4-5.0); Sodium 140 mmol/L (137-145)
== END 2021-06-22 10:44 | disposition home or self-care (01) ==
PROVIDERS: PCP Family Medicine; Visit Provider Internal Medicine Hematology & Oncology
DX: I82.4Y2 Acute embolism and thrombosis of unspecified deep veins of left proximal lower extremity (principal); D24.2 Benign neoplasm of left breast; I26.92 Saddle embolus of pulmonary artery without acute cor pulmonale
CPT/HCPCS: 36415; 80047; 80053; 85025

== ENCOUNTER 2021-07-06 14:29 | Outpatient (CLI) | payer OTHER, SELFPAY ==
--- NOTE | 2021-07-07 11:47 | WPDPFTINT ---
PFT Procedure Performed PFT Procedure Performed Spirometry with Pre/Post Bronchodilator Plethysmography (Lung Vol) Diffusing Cap (DLCO) Flow Vol Loop PFT Interpretation Lung volumes were measured with the body plethysmography method. The diminished expiratory reserve volume is related to obesity. The remaining lung volumes are unremarkable. Spirometry showed mild reduction in FEV1 but normal FEV1 to FVC ratio of 75%. Following administration of a bronchodilator there was no significant increase in expiratory flow rates. Lung diffusion capacity is within the normal range at 82% predicted. The flow volume loop is unremarkable. Overall, PFT testing is compatible with obesity. Clinical correlation advised. Impression: Nonspecific pattern. Lung diffusion capacity within the normal range.
--- NOTE | 2021-07-07 11:51 | WPDSIXMINUTE ---
Six Minute Walk Procedure Procedure Performed Pulmonary Stress Test (6 min walk) Six Minute Walk This 6 minute walk test was carried out with the patient breathing ambient air. Pre walk at rest, the oxyhemoglobin saturation was 98%. The patient walked over 143 m with no pauses during testing. During the walk the oxyhemoglobin saturation remained over 92%. The perceived dyspnea at baseline was 4 on the Annette scale and decreased to 6 at the end of the test. Of note, the patient used a wheeled walker to walk. Impression: No evidence of oxyhemoglobin desaturation on this testing.
== END 2021-07-06 14:30 | disposition home or self-care (01) ==
LOC: ANHLAB 14:30
PROVIDERS: PCP Family Medicine; Visit Provider Internal Medicine Pulmonary Disease
DX: R06.02 Shortness of breath (principal)
CPT/HCPCS: 94060; 94618; 94726; 94729

== ENCOUNTER 2021-07-11 09:46 | Outpatient (CLI) | payer OTHER, SELFPAY ==
[2021-07-11 11:10] LABS: Urine Cotinine NEGATIVE
[2021-07-11 11:19] LABS: Appearance Urine Clear (Clear); Bilirubin Urine Negative (Negative); Blood Urine Negative (Negative); Color Urine Yellow (Yellow); Glucose Urine UA Negative (Negative); INR 1.2; Ketones Urine Negative (Negative); Leukocyte Esterase Ur Negative LEU/UL (Negative); Nitrate Urine Negative (Negative); Protein Urine Negative (Negative); Prothrombin Time 14.4 Seconds (11.1-14.7); Specific Grav Ur 1.015 (1.001-1.035); Urobilinogen Urine 0.2 mg/dL (<2.0)
[2021-07-11 11:20] LABS: Partial Thromboplastin Time 30.9 SECONDS (22.3-36.8)
[2021-07-11 11:27] LABS: Add Urine Microscopic? NO
[2021-07-11 11:34] LABS: Hemoglobin A1C 5.8 % (<5.7)
== END 2021-07-11 09:47 | disposition home or self-care (01) ==
LOC: ANHSURGERY 09:47
PROVIDERS: PCP Family Medicine; Visit Provider Orthopaedic Surgery
DX: Z01.818 Encounter for other preprocedural examination (principal); M17.11 Unilateral primary osteoarthritis, right knee
CPT/HCPCS: 80307; 81003; 83036; 85610; 85730; 87081

== ENCOUNTER 2021-08-09 01:33 | Day surgery (SDC) | payer OTHER, SELFPAY ==
--- NOTE | 2021-07-11 09:44 | PC.NURSE ---
Report to the Outpatient Waiting Room, entrance under the green pavilion located off [facility], at time _1000_ on date _07/25/21_. OR Time: _1200_. - You and your visitor will be asked a series of questions to screen for COVID 19 for your protection. - Only one visitor is allowed at this time. - The patient visitor is requested to leave or wait in car when not with patient. - A mask is required within the hospital. VISITING HOURS 10AM-8PM Patients may have clear liquids (water, carbonated beverages, clear teas, apple juice) until 3 hours prior to surgery (0900 AM) with a maximum of 20 ounces. - No food from midnight until time of surgery Take the following medications with a SIP of water the morning of surgery: _CARVEDILOL, FLUOXETINE, TOPIRAMATE_ Medications to discontinue - ELIQUIS - PER DR. GARRETT'S INSTRUCTIONS Please no make-up, nail arabic, hairspray, perfume, deodorant, or body powder the day of surgery. No jewelry (including any body piercings) or valuables the day of surgery, leave them at home. Please take a shower or bath the night before, or the morning of, surgery with an antibacterial soap. Wear comfortable, loose fitting clothing. - Jewelry must be removed prior to entering the operating room. Rings and piercings that are not removed may be cut off. - The hospital will not accept responsibility for valuables. - Please leave all valuables, including medications, at home the day of surgery. If you are going home after surgery, a licensed wagon driver must drive you home. - NO public transportation without another adult. - We recommend that an adult stay with you for 24 hours following discharge. - We also recommend that you do not drive, make important decision, drink alcoholic beverages, or take any drugs that were not prescribed by your health care provider for at least 24 hours after your discharge time. Follow any additional instructions given to you from your surgeon. If you or anyone in your household have experienced Covid symptoms in the past week, please notify your surgeon or the nurse liaison at the phone number below for possible testing. Instructions given to ___PT and asked if any additional questions and then verbalized understanding. Patient advised to call surgeon office or pre surgery nurse liaison [phone] if any additional questions.
[2021-07-11 09:55] VITALS: BP 154/82; PULSE 60; RESP 20; TEMP 36.6; O2SAT 99; BMI 39.9
--- NOTE | 2021-07-11 10:39 | PC.NURSE ---
EXPLAINED TO PT BMI OF <40 REQUIRED FOR TOTAL JOINT SURGERY - PT 5'3 AND 102.2KG WITH BMI OF 39.9 - DIET AND HEALTHY FOOD CHOICES PRIOR TO SURGERY DISCUSSED WITH PT - PT VOICED UNDERSTANDING
[2021-08-02 09:26] VITALS: BMI 39.9
--- NOTE | 2021-08-02 09:30 | PC.NURSE ---
Report to the Outpatient Waiting Room, entrance under the green pavilion located off [facility], at time ___0900____ on date __08/09/21 . OR Time: __1100 . - You and your visitor will be asked a series of questions to screen for COVID 19 for your protection. - Only one visitor is allowed at this time. - The patient visitor is requested to leave or wait in car when not with patient. - A mask is required within the hospital. Patients may have clear liquids (water, carbonated beverages, clear teas, apple juice) until 3 hours prior to surgery (0800 AM) with a maximum of 20 ounces. - No food from midnight until time of surgery - Infants may have breast milk until 4 hours before surgery, infant formula 6 hours prior to surgery. - Children will be allowed to drink immediately following surgery. If applicable, please bring a bottle or sippy cup to assist with drinking. Juice, water, soda, and popsicles are readily available. For infants on formula, please bring formula the day of surgery. Pacifiers are allowed. Take the following medications with a SIP of water the morning of surgery: __CARVEDILOL, FLUOXETINE, TOPIRAMATE Medications to discontinue per physician ELISTEFANO PER DR GARRETT - PT STATES LAST DOSE TO BE ON 08/03/21 PM Date to take last dose Please no make-up, nail frisian, hairspray, perfume, deodorant, or body powder the day of surgery. No jewelry (including any body piercings) or valuables the day of surgery, leave them at home. Please take a shower or bath the night before, or the morning of, surgery with an antibacterial soap. Wear comfortable, loose fitting clothing. Children are encouraged to wear pajamas. - Jewelry must be removed prior to entering the operating room. Rings and piercings that are not removed may be cut off. - The hospital will not accept responsibility for valuables. - Please leave all valuables, including medications, at home the day of surgery. If you are going home after surgery, a licensed haul truck driver must drive you home. - NO public transportation without another adult. - We recommend that an adult stay with you for 24 hours following discharge. - We also recommend that you do not drive, make important decision, drink alcoholic beverages, or take any drugs that were not prescribed by your health care provider for at least 24 hours after your discharge time. For Pediatric surgeries, we recommend two adults accompany the child home (only one inside the building at this time). Follow any additional instructions given to you from your surgeon. If you or anyone in your household have experienced Covid symptoms in the past week, please notify your surgeon or the nurse liaison at the phone number below for possible testing. Telephone instructions given to ___PT and asked if any additional questions and then verbalized understanding. Patient advised to call surgeon office or pre surgery nurse liaison [phone] if any additional questions.
[2021-08-09] VITALS (11 sets, daily range): BP systolic 119–167; BP diastolic 58–88; PULSE 56–75; RESP 10–18; TEMP 36.3–36.6; O2SAT 95–99; BMI 38.5
--- NOTE | ~2021-08-09 | XR_ITS ---
EXAM: XR knee RT 2V DATE: 08/09/2021 14:14 HISTORY: RT TOTAL KNEE . COMPARISON: 02/07/2021. FINDINGS: Midline skin angus. Interval right knee total arthroplasty, hardware in good position. Ex pected postsurgical changes. Normal mineralization. No fracture or dislocation. No lytic or blastic l esion. Joint spaces are maintained. No erosion or periosteal change. No unexpected radiopaque foreign body. IMPRESSION: Status post right total knee arthroplasty, without radiographic evidence of procedure or hardware-related complication. Reviewed, dictated and finalized at location K. IMPRESSION: Status post right total knee arthroplasty, without radiographic rian dence of procedure or hardware-related complication.
--- NOTE | 2021-08-09 07:13 | WPDHPUPDATE1 ---
History and Physical Update Update Date/Time: 08/09/21 07:13 History and Physical has been reviewed, including an updated exam of the patient. There are NO changes in the patient's condition. Risks, benefits, and alternatives have been discussed and questions answered. Patient agrees to proceed with procedure.
--- NOTE | 2021-08-09 10:36 | WPDANESEPPF ---
Anes - Initial Pre Proc Eval Procedure: Operation Date: 08/09/21 11:00 Proposed Procedures p Right Total Knee Arthroplasty - Mir Sofia MD Date/Time: 08/09/21 10:36 Surgeon: Mir Sofia MD Pre Op Diagnosis: right knee djd Patient Data Age: 66 Gender: F Height: 1.6 m Weight: 98.7 kg Last Vital Signs Temp 36.5 C 08/09/21 09:07 Pulse 56 L 08/09/21 09:07 Resp 18 08/09/21 09:07 BP 148/80 H 08/09/21 09:07 Pulse Ox 99 08/09/21 09:07 O2 Del Method Room Air 08/09/21 09:07 Allergies Allergy/AdvReac Type Severity Reaction Status Date / Time contact metal agent AdvReac SKIN Verified 08/09/21 10:16 IRRITATION Home Medications Medication Instructions Recorded Confirmed Type carvedilol 12.5 mg tablet 12.5 mg PO Q12H #60 tabs 06/02/21 08/09/21 Rx topiramate 50 mg tablet 50 mg PO BID #60 tabs 06/02/21 08/09/21 Rx acetaminophen 325 mg tablet 325 mg PO Q6H PRN Pain 07/11/21 08/09/21 History (Tylenol) esomeprazole magnesium 40 mg 40 mg PO QAM 07/11/21 08/09/21 History granules delayed release for susp (Nexium Packet) fluoxetine 20 mg capsule 20 mg PO QAM 07/11/21 08/09/21 History furosemide 20 mg tablet 10 mg PO QAM 07/13/21 08/09/21 History Eliquis 5 mg tablet (apixaban) 5 mg PO BID #60 tabs 07/18/21 08/09/21 Rx Patient hx anesthesia problems: post op nausea/vomiting Family hx anesthesia problems: none Results Review: All pre-operative results and documents have been reviewed as part of the pre-operative evaluation. [facility] Past Medical History Medical History Acute medial meniscus tear of right knee Acute non-recurrent maxillary sinusitis Arthritis of right knee Body mass index (BMI) of 40.1 to 44.9 in adult Colon polyp, hyperplastic Depression with anxiety Elevated TSH repeat TSH normal at 1.93 with free T4 0.9 on 04/06/2021 Essential (primary) hypertension Frozen shoulder (~2011) GERD (gastroesophageal reflux disease) History of migraine headaches Hypertension Knee effusion, right Migraine without aura and without status migrainosus, not intractable Mixed hyperlipidemia total cholesterol 145, triglycerides 140, HDL 43 and LDL 78 on 10/21/2019 Morbid obesity with BMI of 40.0-44.9, adult Multiple thyroid nodules (12/09/20) multi nodular goiter ultrasound thyroid 12/12/2020 with recheck in 1 year Pulmonary hypertension (12/10/20) moderate pulmonary hypertension on echocardiogram 12/10/2020 with ejection fraction 55-60% with grade 1 diastolic dysfunction and mild mitral valve regurgitation and moderate tricuspid valve regurgitation Right knee DJD Seasonal allergic rhinitis Shortness of breath TMJ (dislocation of temporomandibular joint) (~1979) Surgical History Surgical History H/O arthroscopy of right knee H/O breast biopsy H/O colonoscopy with polypectomy H/O knee surgery (~1979) H/O: hysterectomy (~1984) History of bunionectomy (~1998) bilateral History of placement of ear tubes History of shoulder surgery History of sinus surgery (~2004) History of surgery TMJ surgery Hx of cholecystectomy (~1999) Hx of tonsillectomy Family History Family History Mother Cerebrovascular accident Dementia Father Diabetes mellitus Hypertension CHF (congestive heart failure) Grandparent Heart disease Grandparent Heart disease Grandparent Cerebrovascular accident Grandparent Automobile accident Other Arthritis Kidney disorder Social History Social History Social History: The patient has 1 child. 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 Patient is a former smoker and quit many years ago. She lives with her [facility]
--- NOTE | 2021-08-09 10:52 | WPDANESPNB ---
Anes - Peripheral Nerve Block Date/Time: 08/09/21 10:52 I have discussed with the patient/family/POA the placement of a peripheral nerve block for post-operative pain management, including associated risks, benefits, complications, and side effects. Alternative methods of post-operative analgesia were detailed. Questions were solicited and answers provided to the satisfaction of the patient/family/POA. Time-Out: A pre-procedural Time-Out was completed immediately before starting the procedure and confirmed: Patient Identification, Site, Procedure, Patient Position and the Availability of Requisite Equipment. Clinical Indications: Acute post-operative pain management requested by the operative surgeon. Nerve Block Insertion Note Anes-nerve block: adductor canal right Patient position: supine Skin prep: chlorhexidine Needle: 22 gauge, stimulating, insulated echogenic needle. Needle length: 80 mm Technique: ultrasound Injectate: bupivacaine 0.5% with epi 5 mcg/ml (30cc - no epi) Observations: tolerated well Complications: none Procedure start time:: 1111 Procedure end time:: 1115
--- NOTE | 2021-08-09 10:55 | WPDANESEPPF ---
Anes - Initial Pre Proc Eval Procedure: Operation Date: 08/09/21 11:00 Proposed Procedures p Right Total Knee Arthroplasty - Mir Sofia MD Date/Time: 08/09/21 10:55 Surgeon: Mir Sofia MD Pre Op Diagnosis: right knee djd Patient Data Age: 66 Gender: F Height: 1.6 m Weight: 98.7 kg Last Vital Signs Temp 97.7 F 08/09/21 09:07 Pulse 56 L 08/09/21 09:07 Resp 18 08/09/21 09:07 BP 148/80 H 08/09/21 09:07 Pulse Ox 99 08/09/21 09:07 O2 Del Method Room Air 08/09/21 09:07 Allergies Allergy/AdvReac Type Severity Reaction Status Date / Time contact metal agent AdvReac SKIN Verified 08/09/21 10:16 IRRITATION Home Medications Medication Instructions Recorded Confirmed Type carvedilol 12.5 mg tablet 12.5 mg PO Q12H #60 tabs 06/02/21 08/09/21 Rx topiramate 50 mg tablet 50 mg PO BID #60 tabs 06/02/21 08/09/21 Rx acetaminophen 325 mg tablet 325 mg PO Q6H PRN Pain 07/11/21 08/09/21 History (Tylenol) esomeprazole magnesium 40 mg 40 mg PO QAM 07/11/21 08/09/21 History granules delayed release for susp (Nexium Packet) fluoxetine 20 mg capsule 20 mg PO QAM 07/11/21 08/09/21 History furosemide 20 mg tablet 10 mg PO QAM 07/13/21 08/09/21 History Eliquis 5 mg tablet (apixaban) 5 mg PO BID #60 tabs 07/18/21 08/09/21 Rx Patient hx anesthesia problems: post op nausea/vomiting Family hx anesthesia problems: none Results Review: All pre-operative results and documents have been reviewed as part of the pre-operative evaluation. [facility] Past Medical History Medical History Acute medial meniscus tear of right knee Acute non-recurrent maxillary sinusitis Arthritis of right knee Body mass index (BMI) of 40.1 to 44.9 in adult Colon polyp, hyperplastic Depression with anxiety Elevated TSH repeat TSH normal at 1.93 with free T4 0.9 on 04/06/2021 Essential (primary) hypertension Frozen shoulder (~2011) GERD (gastroesophageal reflux disease) History of migraine headaches Hypertension Knee effusion, right Migraine without aura and without status migrainosus, not intractable Mixed hyperlipidemia total cholesterol 145, triglycerides 140, HDL 43 and LDL 78 on 10/21/2019 Morbid obesity with BMI of 40.0-44.9, adult Multiple thyroid nodules (12/09/20) multi nodular goiter ultrasound thyroid 12/12/2020 with recheck in 1 year Pulmonary hypertension (12/10/20) moderate pulmonary hypertension on echocardiogram 12/10/2020 with ejection fraction 55-60% with grade 1 diastolic dysfunction and mild mitral valve regurgitation and moderate tricuspid valve regurgitation Right knee DJD Seasonal allergic rhinitis Shortness of breath TMJ (dislocation of temporomandibular joint) (~1979) Surgical History Surgical History H/O arthroscopy of right knee H/O breast biopsy H/O colonoscopy with polypectomy H/O knee surgery (~1979) H/O: hysterectomy (~1984) History of bunionectomy (~1998) bilateral History of placement of ear tubes History of shoulder surgery History of sinus surgery (~2004) History of surgery TMJ surgery Hx of cholecystectomy (~1999) Hx of tonsillectomy Family History Family History Mother Cerebrovascular accident Dementia Father Diabetes mellitus Hypertension CHF (congestive heart failure) Grandparent Heart disease Grandparent Heart disease Grandparent Cerebrovascular accident Grandparent Automobile accident Other Arthritis Kidney disorder Social History Social History Social History: The patient has 1 child. 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 Patient is a former smoker and quit many years ago. She lives with her Emerson juárez i
[2021-08-09] MEDS: SCOPOLAMINE 1.5 MG PATCH TRANSDERM (11:00)
[2021-08-09] MEDS: ACETAMINOPHEN 500 MG TABLET 1000 MG PO (11:00)
[2021-08-09] MEDS: TRANEXAMIC ACID 1,000MG/ISO100 1,000 MG/100 ML BAG 200 MG IVPB (11:11)
[2021-08-09] MEDS: LACTATED RINGERS 1,000 ML 30 ML IV CONT (11:12)
[2021-08-09] MEDS: ceFAZolin 2 GM/D5W 50 ML 2 GM/50 ML BAG IVPB ×2 (11:43→20:20)
[2021-08-09] MEDS: TRANEXAMIC ACID 1,000 MG/10 ML AMPUL 1000 MG IV PUSH (13:14)
[2021-08-09] MEDS: fentaNYL CITRATE INJ (*CRX) 100 MCG/2 ML VIAL 25 MCG IV PUSH ×3 (14:19→14:44)
--- NOTE | 2021-08-09 14:33 | W.PM.PROC2 ---
Procedure Note - Detailed Date of Procedure 08/09/21 Pre-op Diagnosis right knee djd Post-op Diagnosis Same Procedure Performed R TKA Surgeon Mir Sofia MD Anesthesia General Description of Procedure THE RIGHT KNEE WAS PREPPED AND DRAPED IN THE STERILE FASHION. THERE WAS A 10 DEGREE FLEXION CONTRACTURE. A MIDLINE SKIN INCISION WAS MADE. A MEDIAL PARAPATELLAR ARTHROTOMY WAS MADE. THE PATELLA WAS EVERTED. THERE WAS TRICOMPARTMENT DJD. AN INTRAMEDULLARY STEPHEN WAS PLACED IN THE FEMUR. A DISTAL FEMORAL CUT WAS MADE IN 5 DEGREES OF VALGUS REMOVING APPROXIMATELY 9 MM OF BONE FROM THE DISTAL FEMUR. THE FEMUR WAS SIZED TO 62.5. A 62.5 FEMORAL CUTTING BLOCK WAS PLACED IN 3 DEGREES OF EXTERNAL ROTATION AND IN ALIGNMENT WITH ESTEFANÍA'S LINE AND THE TRANSEPICONDYLAR AXIS. ANTERIOR POSTERIOR AND CHAMFER CUTS WERE MADE. THE CUTS WERE EXCELLENT. NEXT AN INTRAMEDULLARY CUTTING GUIDE WAS PLACED IN THE TIBIA. A TRANS TIBIAL CUT WAS MADE ALONG THE LONG AXIS OF THE TIBIA. APPROXIMATELY 10 MM OF BONE WAS REMOVED FROM THE HIGH SIDE OF THE TIBIA. THE TIBIA WAS THEN PLANED TO A SMOOTH SURFACE. POSTERIOR FEMORAL OSTEOPHYTES WERE REMOVED FROM THE FEMORAL CONDYLES. A 67 TIBIAL TRIAL WAS PLACED IN ALIGNMENT WITH THE 1/3 MEDIAL ASPECT OF THE TIBIAL TUBERCLE. THEN A 62.5 FEMORAL TRIAL COMPONENT WAS PLACED. BOTH HAD EXCELLENT FITS. EVENTUALLY A 12 MM POLYETHYLENE TRIAL COMPONENT WAS PLACED. THE KNEE WAS TAKEN THROUGH A RANGE OF MOTION. THE KNEE CAME OUT TO FULL EXTENSION. THERE WAS NO ABNORMAL TILT TO THE PATELLA. THERE WAS GOOD A/P AND VARUS/VALGUS STABILITY. THERE WAS NO EXCESSIVE ROLL BACK WITH FLEXION. THE TRIAL COMPONENTS WERE REMOVED. THEN A 62.5 FEMORAL COMPONENT AND 67 TIBIAL COMPONENT WITH A 12 POLYETHYLENE COMPONENT WERE CEMENTED INTO PLACE. ONCE THE CEMENT WAS HARD THE KNEE WAS TAKEN THROUGH A ROM AGAIN AND FOUND TO BE STABLE WITH NO PATELLA TILT NO EXCESSIVE ROLL BACK WITH FLEXION AND GOOD STABILITY WITH COMPLETE AND FULL EXTENSION. THE KNEE WAS IRRIGATED WITH STERILE BETADINE AND WATER FOR ABOUT 3 MINUTES. THE BLEEDERS WERE CAUTERIZED. THE ARTHROTOMY WAS REPAIRED WITH NUMBER 1 VICRYL. THE SUB CUTANEOUS LAYER WITH 2-0 VICRYL AND THE SKIN WITH ANA. THE WOUND WAS WASHED AND A STERILE DRESSING WAS APPLIED. PATIENT WAS EXTUBATED. Estimated Blood Loss -50.0 Pathology None sent Complications No immediate complications Condition Stable Disposition PACU
--- NOTE | 2021-08-09 15:23 | PC.NURSE ---
This patient, Triny Alarcon, was admitted to 2 Medical Room 259-01. Patient/family oriented to hospital policies and general routines including ID bracelet, bed and alarms, visiting hours, pain management, procedures, bathroom and other care routines, personal items, smoking policy, room service/diet, and visiting hours. Information on how to activate the Rapid Response Team has been discussed. Patient/Family are encouraged to report perceived risks to care and to ask questions if they do not understand what they are told or what they should do.
[2021-08-09] MEDS: CELECOXIB 200 MG CAPSULE PO (17:04)
[2021-08-09] MEDS: HYDROcodone/acetaminophen (*CRX) 5-325 MG TABLET 1 TAB PO (17:04)
[2021-08-09] MEDS: SENNA/DOCUSATE SODIUM TABLET 2 TAB PO (17:05)
[2021-08-09] MEDS: oxyCODONE/ACETAMINOPHEN (*CRX) 5-325 MG TABLET 2 TABLET PO (20:19)
[2021-08-09] MEDS: carvediloL 12.5 MG TABLET PO (20:23)
[2021-08-09] MEDS: TOPIRAMATE 25 MG TABLET 50 MG PO (20:23)
[2021-08-10 00:54] VITALS: BP 116/57; PULSE 62; RESP 16; TEMP 36.9; O2SAT 98
[2021-08-10] MEDS: HYDROcodone/acetaminophen (*CRX) 5-325 MG TABLET 1 TAB PO ×2 (01:02→08:54)
[2021-08-10] MEDS: diazePAM (*CRX) 5 MG TABLET PO (02:59)
[2021-08-10] MEDS: ceFAZolin 2 GM/D5W 50 ML 2 GM/50 ML BAG IVPB ×2 (05:20→12:24)
[2021-08-10 06:23] LABS: Basophils Percent Auto 0.1 % (0.2-1.2); Eosinophils Percent Auto 0.1 % (0-4.4); Hematocrit 38.3 % (37.0-47.0); Hemoglobin 11.9 g/dL (12.0-15.0); Immature Granulocyte Absolute 0.03 K/mm3 (0.00-0.031); Immature Granulocyte Percent A 0.3 % (0-0.5); Lymphocytes Absolute Auto 2.02 K/mm3 (0.9-3.2); Lymphocytes Percent Auto 18.1 % (18.3-44.2); Mean Corpuscular HGB Conc 31.1 g/dl (32-36); Mean Corpuscular Hemoglobin 27.2 pg (26-34); Mean Corpuscular Volume 87.6 fl (80-100); Mean Platelet Volume 11.9 fl (7.4-10.4); Monocytes Percent Auto 9.1 % (2.6-8.5); Neutrophils Absolute Auto 8.1 K/mm3 (1.3-6.7); Neutrophils Percent Auto 72.3 % (45.5-73.1); Platelet Count Result 161 k/mm3 (150-375); Red Blood Count 4.37 M/mm3 (4.2-5.4); Red Cell Distribution Width 13.3 % (11.5-14.5); White Blood Count 11.2 K/mm3 (4.5-10.0)
[2021-08-10 06:44] LABS: Anion Gap 5 mmol/L (8-16); Blood Urea Nitrogen 15 mg/dL (7-17); Calcium 8.2 mg/dL (8.4-10.2); Carbon Dioxide 23 mmol/L (22-30); Chloride 108 mmol/L (98-107); Estimated CRCL calculation 62 ml/min; Estimated Glomerular Filt Rate > 60; Glucose 126 mg/dL (65-110); Potassium 4.3 mmol/L (3.4-5.0); Sodium 136 mmol/L (137-145)
[2021-08-10 07:19] VITALS: BP 102/58; PULSE 58; RESP 14; TEMP 36.4; O2SAT 97
[2021-08-10 08:00] VITALS: PULSE 50; RESP 14; O2SAT 97
[2021-08-10] MEDS: APIXABAN 5 MG TABLET PO (08:48)
[2021-08-10] MEDS: CELECOXIB 200 MG CAPSULE PO (08:48)
[2021-08-10 08:52] VITALS: PULSE 50
[2021-08-10] MEDS: SENNA/DOCUSATE SODIUM TABLET 2 TAB PO (08:52)
[2021-08-10] MEDS: FLUoxetine HCL 20 MG CAPSULE PO (08:52)
[2021-08-10] MEDS: TOPIRAMATE 25 MG TABLET 50 MG PO (08:53)
[2021-08-10] MEDS: polyethylene glycoL 3350 17 GM POWD.PACK PO (08:53)
[2021-08-10] MEDS: FUROSEMIDE 10 MG TABLET PO (08:53)
[2021-08-10] MEDS: PANTOPRAZOLE 40 MG TABLET PO (08:53)
--- NOTE | 2021-08-10 09:16 | PM.PNORT ---
Progress Note: A&P Assessment and Plan (1) S/P total knee arthroplasty: Code(s): Z96.659 - Presence of unspecified artificial knee joint Status: Acute Assessment and Plan: POD #1 : RIGHT TKA Continue PT/OT. WBAT. Walker. HIGH FALL RISK. Continue pain control. Ice knee. Protect skin. DVT prophylaxis with resumed Eliquis. SCDs. Incentive Spirometry Use reviewed. Monitor Prevena Dressing.Send patient with one Mepilex Silver Dressing for discharge. Bowel Regimen. Dispo: Home with Home Health pending progress with PT/OT Subjective Subjective Date/Time Seen: 08/10/21 09:16 Post Op day: 1 Interval history: POD #1: Right TKA Patient doing well. Awaiting PT/OT at this time. Hopeful for discharge home today. Review of Systems Review of Systems: All systems reviewed & are unremarkable except as noted in HPI and below Constitutional: Constitutional: Denies fever(s) and Denies headache(s) ENT: Denies headache(s) Cardiovascular: Cardiovascular: Denies chest pain, Denies diaphoresis, Denies palpitations and Denies dyspnea Respiratory: Respiratory: Denies dyspnea Gastrointestinal: Gastrointestinal: Denies abdominal pain, Denies constipation, Denies nausea and Denies vomiting Genitourinary: Genitourinary: Reports nocturia and Denies dysuria Musculoskeletal: Musculoskeletal: Reports arthralgias (Right Knee ) and Reports joint swelling (Right Knee ) Neurologic: Denies headache(s) Endocrine: Endocrine: Denies palpitations Exam Const: General: comfortable and no acute distress Resp: Effort & Inspection: normal respiratory effort Cardio: Rate: regular rate Rhythm: regular rhythm GI: GI Palp: Yes Soft to palpation, No Tenderness to palpation present (GI) and No Guarding due to palpation present (GI) Skin: Wounds: wounds noted Other: Incision c/d/i. No surrounding redness/warmth. No hematoma. Mild ecchymosis. No wound dehiscence Neuro: Cognition (Neuro): normal cognition Other: NV intact aside from block. Moves toes. Sensation intact to light touch. +ankle dorsiflexion/plantarflexion. Extrem: Right lower extremity: normal to inspection, knee Details: tenderness (diffuse, mild ) Location: of the patella, swelling (diffuse, consistent with surgical intervention ), abnormal ROM Details: pain with active ROM during, pain with passive ROM during and with range as follows (limited due to recent surgical intervention ); able to extend lower leg actively and ecchymosis (mild ), lower leg (Negative Shira's Sign ) Details: normal to inspection; no erythema and no tenderness, ankle (+ankle dorsiflexion/plantarflexion ) Details: normal to inspection, no edema and normal ROM; no tenderness, no swelling and no ecchymosis and foot Details: normal capillary refill, normal to inspection, vascular exam Details: dorsalis pedis pulse present and motor-sensory exam Details: light-touch normal; no tenderness Left lower extremity: normal to inspection Psych: Mental Status: mental status grossly normal Objective Data Vital Signs Vital Signs: Vital Signs - 24 hr 08/09/21 14:05 08/09/21 14:20 08/09/21 14:35 Temperature 36.6 C Pulse Rate 74 75 72 Respiratory Rate 16 10 L 10 L Blood Pressure 167/88 H 144/79 H 147/83 H Pulse Oximetry 96 97 97 Oxygen Delivery Simple Face Mask Simple Face Mask Oxygen Flow Rate 8 8 6 08/09/21 14:50 08/09/21 15:23 08/09/21 15:35 Temperature 36.3 C L 36.6 C Pulse Rate 60 64 65 Respiratory Rate 10 L 16 14 Blood Pressure 146/83 H 155/78 H 148/72 H Pulse Oximetry 95 96 97 Oxygen Delivery Nasal Cannula Oxygen Flow Rate 2 08/09/21 16:00 08/09/21 17:00 08/09/21 20:03 Temperature 36.4 C 36.6 C 36.4 C Pulse Rate 67 60 60 Respiratory Rate 16 16 16 Blood Pressure 142/72 H 145/70 H 119/58 L Pulse Oximetry 96 98 97 Oxygen Delivery Oxygen Flow Rate 08/09/21 20:23 08/10/21 00:54 08/10/21 07:19 Temperature 36.9 C 36.4 C Pulse Rate 60 62 58 L Respiratory
[2021-08-10 10:00] VITALS: BP 107/54; PULSE 53; RESP 14; TEMP 36.7; O2SAT 97
--- NOTE | 2021-08-10 13:43 | PM.DS ---
DS: Admitting Diagnosis Discharge Date 08/10/21 Admitting Diagnosis Right TKA DS: Discharge Diagnosis Discharge Diagnosis (1) S/P total knee arthroplasty: Code(s): Z96.659 - Presence of unspecified artificial knee joint Status: Acute Assessment and Plan: POD #1 : RIGHT TKA Continue PT/OT. WBAT. Walker. HIGH FALL RISK. Continue pain control. Ice knee. Protect skin. DVT prophylaxis with resumed Eliquis. SCDs. Incentive Spirometry Use reviewed. Monitor Prevena Dressing.Send patient with one Mepilex Silver Dressing for discharge. Bowel Regimen. Dispo: Home with Home Health DS: Summary Hospital Course Reason for hospitalization: Right TKA Hospital Course: 66 year old female admitted s/p right TKA by Dr. Sofia for postoperative medical management, pain control and mobilization with PT/OT. Patient progressed very well on POD #1. Pain well controlled. Independent with PT/OT. Cleared by PT/OT to be discharged. Reviewed labs, xrays and assessment with Dr. Sofia. Patient cleared for discharge. Patient will go home with home health. Prevena dressing in place. Directions reviewed in the discharge care. Patient will follow up in the outpatient setting in 3 weeks as scheduled. Status at Discharge Functional status at discharge: uses cane/walker Overall status at discharge: patient is progressing back to baseline Time Spent with Patient Time attestation: Total time spent providing and/or coordinating discharge services: Exam Const: General: comfortable and no acute distress Resp: Effort & Inspection: normal respiratory effort Cardio: Rate: regular rate Rhythm: regular rhythm Skin: Wounds: wounds noted Other: Incision c/d/i. No surrounding redness/warmth. No hematoma. Mild ecchymosis. No wound dehiscence Neuro: Cognition (Neuro): normal cognition Other: NV intact aside from block. Moves toes. Sensation intact to light touch. +ankle dorsiflexion/plantarflexion. Extrem: Right lower extremity: normal to inspection, knee Details: tenderness (diffuse, mild ) Location: of the patella, swelling (diffuse, consistent with surgical intervention ), abnormal ROM Details: pain with active ROM during, pain with passive ROM during and with range as follows (limited due to recent surgical intervention ); able to extend lower leg actively and ecchymosis (mild ), lower leg (Negative Shira's Sign ) Details: normal to inspection; no erythema and no tenderness, ankle (+ankle dorsiflexion/plantarflexion ) Details: normal to inspection, no edema and normal ROM; no tenderness, no swelling and no ecchymosis and foot Details: normal capillary refill, normal to inspection, vascular exam Details: dorsalis pedis pulse present and motor-sensory exam Details: light-touch normal; no tenderness Left lower extremity: normal to inspection Psych: Mental Status: mental status grossly normal DS: Data Data Completed and Pending Labs on day of discharge: Labs from last 24 hours 08/10/21 08/10/21 05:50 05:50 WBC 11.2 H RBC 4.37 Hgb 11.9 L Hct 38.3 MCV 87.6 MCH 27.2 MCHC 31.1 L RDW 13.3 Plt Count 161 MPV 11.9 H Immature Gran % (Auto) 0.3 Neut % (Auto) 72.3 Lymph % (Auto) 18.1 L [place] % (Auto) 9.1 H Eos % (Auto) 0.1 Baso % (Auto) 0.1 L Lymph # (Auto) 2.02 [place] # (Auto) 1.0 H Eos # (Auto) 0.0 Baso # (Auto) 0.0 Abs Immat Gran (auto) 0.03 Absolute Neuts (auto) 8.1 H Absolute Nucleated RBC 0.0 Nucleated RBC % 0.0 Sodium 136 L Potassium 4.3 Chloride 108 H Carbon Dioxide 23 Anion Gap 5 L BUN 15 D Creatinine 0.90 Estim Creat Clear Calc 62 Estimated GFR > 60 Glucose 126 H Calcium 8.2 L Discharge Plan Discharge Patient Disposition: Home Health Service Discharge Instructions: Post Op Total Knee Replacement Instructions Dr. Mir Sofia [phone] See wound care below. You may shower with your dressing but do not submerge in a ba
== END 2021-08-10 15:05 | disposition home health service (06) ==
LOC: ANHSURGERY 08:48 → ANH2MED 15:12
PROVIDERS: PCP Family Medicine; Visit Provider Orthopaedic Surgery
PROC: (CPT 27447; principal; 2021-08-09 11:00)
DX: M17.11 Unilateral primary osteoarthritis, right knee (principal); M25.761 Osteophyte, right knee; G89.18 Other acute postprocedural pain; M25.361 Other instability, right knee; Z79.01 Long term (current) use of anticoagulants; M25.461 Effusion, right knee; M25.661 Stiffness of right knee, not elsewhere classified; F41.8 Other specified anxiety disorders; K21.9 Gastro-esophageal reflux disease without esophagitis; I10 Essential (primary) hypertension; E78.2 Mixed hyperlipidemia; I27.20 Pulmonary hypertension, unspecified; E04.2 Nontoxic multinodular goiter; I34.0 Nonrheumatic mitral (valve) insufficiency; I36.1 Nonrheumatic tricuspid (valve) insufficiency; M26.609 Unspecified temporomandibular joint disorder, unspecified side; Z90.49 Acquired absence of other specified parts of digestive tract; Z87.891 Personal history of nicotine dependence; M25.561 Pain in right knee; F12.90 Cannabis use, unspecified, uncomplicated; E66.9 Obesity, unspecified; Z68.38 Body mass index [BMI] 38.0-38.9, adult; Z91.81 History of falling
CPT/HCPCS: 27447; 64447; 36415; 73560; 80048; 80307; 81003; 83036; 85025; 85610; 85730; 86850; 86900; 86901; 87081; 97110; 97116; 97161; 97165; A9270; C1713; J0171; J0690; J1100; J1170; J1885; J2250; J2270; J2405; J2704; J2795; J3010; J7120

== ENCOUNTER 2021-10-13 09:52 | Outpatient (CLI) | payer OTHER, SELFPAY ==
--- NOTE | ~2021-10-13 | MM_ITS ---
EXAMINATION: MM screening [facility] BI w carl HISTORY: Screening TECHNIQUE: Craniocaudal and mediolateral oblique 3-D tomosynthesis images were obtained and synthetic 2-D images were generated. CAD analysis was submitted and interpreted. COMPARISON: 07/15/2020 BREAST PARENCHYMAL COMPOSITION: There are scattered areas of fibroglandular density. FINDINGS: There is no evidence of suspicious mass, calcification, or architectural distortion to sugg est malignancy in either breast. There has been no suspicious interval change. IMPRESSION: 1. No mammographic evidence of malignancy. 2. Recommend routine screening mammography in one year. BI-RADS Category 1: Negative Reviewed, dictated and finalized at location A.
== END 2021-10-13 09:53 | disposition home or self-care (01) ==
LOC: ANHIMG 09:55
PROVIDERS: PCP Family Medicine; Visit Provider Internal Medicine Hematology & Oncology
DX: Z12.31 Encounter for screening mammogram for malignant neoplasm of breast (principal)
CPT/HCPCS: 77063; 77067

== ENCOUNTER 2021-10-20 12:42 | Outpatient (RCR) | payer OTHER, SELFPAY ==
[2021-10-20 13:10] LABS: Basophils Percent Auto 0.4 % (0.2-1.2); Eosinophils Absolute Auto 0.1 K/mm3 (0-0.3); Eosinophils Percent Auto 1.3 % (0-4.4); Hemoglobin 12.9 g/dL (12.0-15.0); Immature Granulocyte Absolute 0.01 K/mm3 (0.00-0.031); Immature Granulocyte Percent A 0.2 % (0-0.5); Lymphocytes Absolute Auto 2.18 K/mm3 (0.9-3.2); Mean Corpuscular HGB Conc 30.7 g/dl (32-36); Mean Corpuscular Hemoglobin 26.7 pg (26-34); Mean Corpuscular Volume 86.8 fl (80-100); Mean Platelet Volume 11.3 fl (7.4-10.4); Monocytes Absolute Auto 0.5 K/mm3 (0.1-0.6); Monocytes Percent Auto 8.6 % (2.6-8.5); Neutrophils Absolute Auto 2.6 K/mm3 (1.3-6.7); Neutrophils Percent Auto 48.5 % (45.5-73.1); Platelet Count Result 188 k/mm3 (150-375); Red Blood Count 4.84 M/mm3 (4.2-5.4); Red Cell Distribution Width 13.7 % (11.5-14.5); White Blood Count 5.3 K/mm3 (4.5-10.0)
[2021-10-20 13:13] LABS: Blood Urea Nitrogen 13 mg/dL (8-26); Carbon Dioxide 24 mmol/L (22-30); Chloride 108 mmol/L (98-109); Estimated Glomerular Filt Rate > 60; Glucose 99 mg/dL (70-105); Ionized Calcium (POC) 1.29 mmol/L (1.11-1.31); Potassium 4.6 mmol/L (3.5-4.9); Sodium 144 mmol/L (138-146)
[2021-10-20 14:52] LABS: Alanine Aminotransferase 14 U/L (6-35); Albumin Level 4.2 g/dL (3.5-5.1); Alkaline Phosphatase 86 U/L (38-126); Anion Gap 12 mmol/L (8-16); Aspartate Amino Transferase 20 U/L (14-36); Bilirubin,Total 0.4 mg/dL (0.2-1.3); Blood Urea Nitrogen 13 mg/dL (7-17); Carbon Dioxide 26 mmol/L (22-30); Chloride 106 mmol/L (98-107); Estimated Glomerular Filt Rate > 60; Glucose 100 mg/dL (65-110); Potassium 4.6 mmol/L (3.4-5.0); Sodium 144 mmol/L (137-145)
== END 2022-01-18 23:59 | disposition home or self-care (01) ==
LOC: ANHLAB 12:42
PROVIDERS: PCP Family Medicine; Visit Provider Internal Medicine Hematology & Oncology
DX: I82.4Y2 Acute embolism and thrombosis of unspecified deep veins of left proximal lower extremity (principal); D24.2 Benign neoplasm of left breast; I26.92 Saddle embolus of pulmonary artery without acute cor pulmonale
CPT/HCPCS: 36415; 80047; 80053; 85025

== ENCOUNTER 2022-03-08 09:29 | Outpatient (CLI) | payer OTHER, SELFPAY ==
[2022-03-08 09:41] LABS: Basophils Percent Auto 0.3 % (0.2-1.2); Eosinophils Absolute Auto 0.1 K/mm3 (0-0.3); Eosinophils Percent Auto 1.2 % (0-4.4); Hematocrit 40.7 % (37.0-47.0); Hemoglobin 12.7 g/dL (12.0-15.0); Immature Granulocyte Absolute 0.03 K/mm3 (0.00-0.031); Immature Granulocyte Percent A 0.5 % (0-0.5); Lymphocytes Absolute Auto 2.27 K/mm3 (0.9-3.2); Lymphocytes Percent Auto 34.4 % (18.3-44.2); Mean Corpuscular HGB Conc 31.2 g/dl (32-36); Mean Corpuscular Hemoglobin 27.5 pg (26-34); Mean Corpuscular Volume 88.1 fl (80-100); Mean Platelet Volume 10.6 fl (7.4-10.4); Monocytes Absolute Auto 0.5 K/mm3 (0.1-0.6); Neutrophils Absolute Auto 3.7 K/mm3 (1.3-6.7); Neutrophils Percent Auto 55.6 % (45.5-73.1); Platelet Count Result 188 k/mm3 (150-375); Red Blood Count 4.62 M/mm3 (4.2-5.4); Red Cell Distribution Width 14.1 % (11.5-14.5); White Blood Count 6.6 K/mm3 (4.5-10.0)
[2022-03-08 09:44] LABS: Blood Urea Nitrogen 22 mg/dL (8-26); Carbon Dioxide 24 mmol/L (22-30); Chloride 108 mmol/L (98-109); Estimated Glomerular Filt Rate > 60; Glucose 98 mg/dL (70-105); Ionized Calcium (POC) 1.24 mmol/L (1.11-1.31); Potassium 4.1 mmol/L (3.5-4.9); Sodium 143 mmol/L (138-146)
[2022-03-08 11:29] LABS: Alanine Aminotransferase 15 U/L (6-35); Albumin Level 3.8 g/dL (3.5-5.1); Alkaline Phosphatase 90 U/L (38-126); Anion Gap 5 mmol/L (8-16); Aspartate Amino Transferase 19 U/L (14-36); Bilirubin,Total 0.3 mg/dL (0.2-1.3); Blood Urea Nitrogen 21 mg/dL (7-17); Calcium 8.6 mg/dL (8.4-10.2); Carbon Dioxide 26 mmol/L (22-30); Chloride 111 mmol/L (98-107); Estimated Glomerular Filt Rate > 60; Glucose 96 mg/dL (65-110); Potassium 4.2 mmol/L (3.4-5.0); Sodium 142 mmol/L (137-145)
== END 2022-03-08 09:30 | disposition home or self-care (01) ==
LOC: ANHLAB 09:29
PROVIDERS: PCP Family Medicine; Visit Provider Internal Medicine Hematology & Oncology
DX: I82.4Y2 Acute embolism and thrombosis of unspecified deep veins of left proximal lower extremity (principal); D24.2 Benign neoplasm of left breast; I26.92 Saddle embolus of pulmonary artery without acute cor pulmonale
CPT/HCPCS: 36415; 80047; 80053; 85025

== ENCOUNTER → 2022-03-15 10:23 | Outpatient (CLI) | payer OTHER, SELFPAY ==
--- NOTE | ~2022-03-15 | US_ITS ---
Duplex Sonography of the left extremity: Indication: Swelling, acute DVT Findings: Sagittal and transverse B-mode images as well as color-flow imaging were performed on the l eft femoral and popliteal veins. B-mode examination was done without and with compression in the tra nsverse plane. There is good visualization of the common femoral, proximal profunda femoral, superfi cial femoral, greater saphenous, and popliteal veins. Normal flow was seen on color-flow imaging. No rmal compressibility was demonstrated. Left posterior tibial, peroneal, and soleus veins are also pat ent. Impression: No evidence of deep vein thrombosis involving the left lower extremity. Reviewed, dictated and finalized at location M. VISION REPAIRMAN Impression: No evidence of deep vein thrombosis involving the left lower extremity.
== END ==
PROVIDERS: PCP Family Medicine; Visit Provider Internal Medicine Hematology & Oncology
DX: I82.4Y2 Acute embolism and thrombosis of unspecified deep veins of left proximal lower extremity (principal)
CPT/HCPCS: 93971

== ENCOUNTER → 2022-06-26 09:54 | Outpatient (CLI) | payer OTHER, SELFPAY ==
--- NOTE | ~2022-06-26 | XR_ITS ---
Left wrist Technique: PA, oblique, lateral, and ulnar deviation views were obtained. Clinical History: Pain Findings: No acute fracture or dislocation is seen. Osseous alignment is anatomic. There is mild dege nerative change of the first CMC joint. Soft tissues are unremarkable. Impression: No fracture or dislocation seen. Mild degenerative change at the first CMC joint. Reviewed, dictated and finalized at location . Impression: No fracture or dislocation seen. Mild degenerative change at the first CMC joint.
--- NOTE | ~2022-06-26 | XR_ITS ---
EXAM: XR_CERV2-3V_CR DATE: 06/26/2022 10:27 HISTORY: M54.2 - Cervicalgia/pain over 1 month, worse on left . COMPARISON: None available. FINDINGS: Craniocervical association and atlantoaxial joint are aligned. Mild degenerative change at the lateral dental interval. No prevertebral soft tissue swelling. 2 mm anterolistheses at C5-6 and C6-7. Vertebral body heights are maintained. Minimal marginal osteophytosis at C5-6 and C6-7. Mild mu ltilevel facet hypertrophy and sclerosis. IMPRESSION: Trace grade 1 anterolistheses, with mild degenerative disc changes at C5-6 and C6-7. Mild facet arthropathy. Reviewed, dictated and finalized at location K.
--- NOTE | ~2022-06-26 | XR_ITS ---
Left Hand Technique: PA, oblique, and lateral views were obtained. Clinical History: Pain Findings: No acute fracture or dislocation is seen. There is moderate degenerative change at the firs t CMC joint.. There are mild degenerative changes of the second and third DIP joints. Soft tissues ar e unremarkable. Impression: No fracture or dislocation. Degenerative changes, as detailed above. Reviewed, dictated and finalized at location M. Impression: No fracture or dislocation. Degenerative changes, as detailed above.
--- NOTE | ~2022-06-26 | XR_ITS ---
EXAMINATION: XR chest 2V 06/26/2022 10:26 INDICATION: Cough PROCEDURE: 2 view chest COMPARISON: 05/01/2013 FINDINGS: The lungs are clear. The cardiomediastinal silhouette is within normal limits. There are no pleural effusions. There is no pneumothorax suspected. IMPRESSION: 1: NO ACUTE CARDIOPULMONARY DISEASE. Reviewed, dictated and finalized at location L.
== END ==
PROVIDERS: PCP Family Medicine; Visit Provider Nurse Practitioner Family
DX: M54.2 Cervicalgia (principal); R05.9 Cough, unspecified; M79.642 Pain in left hand; W19.XXXA Unspecified fall, initial encounter; M47.812 Spondylosis without myelopathy or radiculopathy, cervical region
CPT/HCPCS: 71046; 72040; 73100; 73120

== ENCOUNTER → 2022-10-04 13:39 | Outpatient (CLI) | payer OTHER, SELFPAY ==
--- NOTE | ~2022-10-04 | CT_ITS ---
EXAMINATION: CT sinus wo con DATE: 10/04/2022 13:56 INDICATION: Chronic sinusitis TECHNIQUE: Computed tomography (CT) of the paranasal sinuses was performed without intravenous contra st. The dose-length product (DLP) was 269.39 mGy-cm. Iterative reconstruction was used. COMPARISON: None FINDINGS: There is normal development and pneumatization of the paranasal sinuses. The frontal, sphen oid, ethmoid, and maxillary sinuses are clear. The bilateral ostiomeatal complexes are patent. Visual ized soft tissues are unremarkable. IMPRESSION: 1. Unremarkable sinus CT. Reviewed, dictated and finalized at location L. IMPRESSION: 1. Unremarkable sinus CT.
== END ==
PROVIDERS: PCP Family Medicine; Visit Provider Otolaryngology
DX: J32.9 Chronic sinusitis, unspecified (principal)
CPT/HCPCS: 70486

== ENCOUNTER 2022-10-19 10:08 | Outpatient (CLI) | payer OTHER, SELFPAY ==
--- NOTE | ~2022-10-19 | MM_ITS ---
EXAMINATION: MM screening [facility] BI w carl HISTORY: Screening mammogram TECHNIQUE: Craniocaudal and mediolateral oblique 3-D tomosynthesis images were obtained and synthetic 2-D images were generated. CAD analysis was submitted and interpreted. COMPARISON: 12/13/2021, 07/15/2020 BREAST PARENCHYMAL COMPOSITION: There are scattered areas of fibroglandular density. FINDINGS: No suspicious mass, calcification, or architectural distortion are identified in either francois ast to suggest malignancy. There has been no suspicious interval change. IMPRESSION: 1. No mammographic evidence of malignancy. 2. Recommend routine screening mammography in one year. BI-RADS Category 1: Negative Reviewed, dictated and finalized at location B.
== END 2022-10-19 10:09 | disposition home or self-care (01) ==
LOC: ANHIMG 10:11
PROVIDERS: PCP Family Medicine; Visit Provider Internal Medicine Hematology & Oncology
DX: Z12.31 Encounter for screening mammogram for malignant neoplasm of breast (principal)
CPT/HCPCS: 77063; 77067

== ENCOUNTER 2022-11-02 10:48 | Outpatient (CLI) | payer OTHER, SELFPAY ==
[2022-11-02 11:05] LABS: Basophils Percent Auto 0.5 % (0.2-1.2); Eosinophils Absolute Auto 0.1 K/mm3 (0-0.3); Eosinophils Percent Auto 1.6 % (0-4.4); Hematocrit 39.8 % (37.0-47.0); Hemoglobin 12.3 g/dL (12.0-15.0); Immature Granulocyte Absolute 0.03 K/mm3 (0.00-0.031); Immature Granulocyte Percent A 0.5 % (0-0.5); Lymphocytes Absolute Auto 1.88 K/mm3 (0.9-3.2); Lymphocytes Percent Auto 33.3 % (18.3-44.2); Mean Corpuscular HGB Conc 30.9 g/dl (32-36); Mean Corpuscular Hemoglobin 27.5 pg (26-34); Mean Platelet Volume 10.8 fl (7.4-10.4); Monocytes Absolute Auto 0.5 K/mm3 (0.1-0.6); Monocytes Percent Auto 8.7 % (2.6-8.5); Neutrophils Absolute Auto 3.1 K/mm3 (1.3-6.7); Neutrophils Percent Auto 55.4 % (45.5-73.1); Platelet Count Result 167 k/mm3 (150-375); Red Blood Count 4.47 M/mm3 (4.2-5.4); Red Cell Distribution Width 13.7 % (11.5-14.5); White Blood Count 5.7 K/mm3 (4.5-10.0)
[2022-11-02 11:09] LABS: Blood Urea Nitrogen 11 mg/dL (8-26); Carbon Dioxide 24 mmol/L (22-30); Chloride 106 mmol/L (98-109); Estimated Glomerular Filt Rate > 60; Glucose 112 mg/dL (70-105); Potassium 4.1 mmol/L (3.5-4.9); Sodium 144 mmol/L (138-146)
[2022-11-02 16:28] LABS: Alanine Aminotransferase 17 U/L (6-35); Albumin Level 3.6 g/dL (3.5-5.1); Alkaline Phosphatase 84 U/L (38-126); Anion Gap 4 mmol/L (8-16); Aspartate Amino Transferase 21 U/L (14-36); Bilirubin,Total 0.3 mg/dL (0.2-1.3); Blood Urea Nitrogen 11 mg/dL (7-17); Calcium 8.5 mg/dL (8.4-10.2); Carbon Dioxide 27 mmol/L (22-30); Chloride 110 mmol/L (98-107); Estimated Glomerular Filt Rate > 60; Glucose 111 mg/dL (65-110); Potassium 4.2 mmol/L (3.4-5.0); Sodium 141 mmol/L (137-145)
== END 2022-11-02 10:49 | disposition home or self-care (01) ==
LOC: ANHLAB 10:50
PROVIDERS: PCP Family Medicine; Visit Provider Internal Medicine Hematology & Oncology
DX: I82.4Y2 Acute embolism and thrombosis of unspecified deep veins of left proximal lower extremity (principal); I26.92 Saddle embolus of pulmonary artery without acute cor pulmonale; D24.2 Benign neoplasm of left breast
CPT/HCPCS: 36415; 80047; 80053; 85025

== ENCOUNTER 2022-11-09 11:31 | Outpatient (CLI) | payer OTHER, SELFPAY ==
[2022-11-12 05:16] LABS: Homocysteine 7.8 umol/L (<10.4)
[2022-11-12 21:31] LABS: Antithrombin III Activity 104 % normal (80-135)
[2022-11-16 15:08] LABS: Lupus dRVVT Screen 45 sec (<=45); PTT-LA Screen 31 sec (<=40)
== END 2022-11-09 11:32 | disposition home or self-care (01) ==
PROVIDERS: PCP Family Medicine; Visit Provider Internal Medicine Hematology & Oncology
DX: I82.4Y2 Acute embolism and thrombosis of unspecified deep veins of left proximal lower extremity (principal)
CPT/HCPCS: 36415; 83090; 85300; 85303; 85306; 85613; 85730; 86146

== ENCOUNTER → 2022-11-10 10:26 | Outpatient (CLI) | payer OTHER, SELFPAY ==
--- NOTE | ~2022-11-10 | XR_ITS ---
XR shoulder RT min 2V 11/10/2022 12:04 Indication: Right shoulder pain after injury Procedure: 4 views right shoulder Comparison: No prior studies for comparison. Findings: Mild polyarticular osteoarthritis. Focal benign-appearing sclerotic lesion right humeral he ad. No fracture or traumatic malalignment. No significant soft tissue abnormality. No foreign bodies. Impression: 1: Mild polyarticular osteoarthritis. Reviewed, dictated and finalized at location A. Impression: 1: Mild polyarticular osteoarthritis.
== END ==
PROVIDERS: PCP Family Medicine; Visit Provider Family Medicine
DX: M19.011 Primary osteoarthritis, right shoulder (principal)
CPT/HCPCS: 73030

== ENCOUNTER → 2023-05-16 17:19 | Outpatient (CLI) | payer OTHER, SELFPAY ==
--- NOTE | ~2023-05-16 | XR_ITS ---
EXAMINATION:XR cervical spine 4-5V DATE: 05/16/2023 17:40 INDICATION: Neck pain TECHNIQUE: AP, lateral, lateral swimmers and odontoid views of the cervical spine are provided. COMPARISON: 06/26/2022 FINDINGS: There are 2 mm of unchanged anterolisthesis of C5 on C6 and C6 on C7. The odontoid process is intact. No fracture is identified. Vertebral body heights and disk spaces are normal. Prevertebral soft tissues are normal. There is multilevel moderate facet and uncovertebral joint osteoarthritis. IMPRESSION: 1. Mild cervical spondylosis without acute findings or significant interval change. Reviewed, dictated and finalized at location A. IMPRESSION: 1. Mild cervical spondylosis without acute findings or significant interval amor lisandroe.
== END ==
PROVIDERS: PCP Family Medicine; Visit Provider Family Medicine
DX: M43.02 Spondylolysis, cervical region (principal)
CPT/HCPCS: 72050

== ENCOUNTER 2023-05-21 09:41 | Outpatient (CLI) | payer OTHER, SELFPAY ==
--- NOTE | 2023-05-21 10:30 | NEURO_ITS ---
Impression: # Non-diabetic complains of numbness of hands. # Bilateral Carpal Tunnel Syndrome. 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 # Needle/EMG exam mildly abnormal. # Clinical correlation recommended. Nerve Conduction Studies Anti Sensory Summary Table Stim Site NR Peak (ms) P-T Amp (?V) Site1 Site2 Delta-P (ms) Dist (cm) Rocky (m/s) Left Median Anti Sensory (2-3nd Digit) Wrist 4.6 27.4 Wrist 2-3nd Digit 4.6 14.0 30 Wrist 5.0 18.4 Wrist 2-3nd Digit 4.6 14.0 30 Right Median Anti Sensory (2-3nd Digit) Wrist 5.0 29.4 Wrist 2-3nd Digit 5.0 14.0 28 Wrist 5.6 26.2 Wrist 2-3nd Digit 5.0 14.0 28 Left Radial Anti Sensory (Base 1st Digit) Wrist 2.4 18.0 Wrist Base 1st Digit 2.4 0.0 Right Radial Anti Sensory (Base 1st Digit) Wrist 2.7 31.4 Wrist Base 1st Digit 2.7 0.0 Left Ulnar Anti Sensory (5th Digit) Wrist 2.8 49.9 Wrist 5th Digit 2.8 14.0 50 Right Ulnar Anti Sensory (5th Digit) Wrist 3.3 40.6 Wrist 5th Digit 3.3 14.0 42 Motor Summary Table Stim Site NR Onset (ms) O-P Amp (mV) Site1 Site2 Delta-0 (ms) Dist (cm) Rocky (m/s) Left Median Motor (Abd Poll Brev) Wrist 4.5 4.4 Elbow Wrist 5.0 29.0 58 Elbow 9.5 3.6 Right Median Motor (Abd Poll Brev) Wrist 4.2 6.6 Elbow Wrist 5.2 27.0 52 Elbow 9.4 4.9 Left Ulnar Motor (Abd Dig Minimi) Wrist 3.2 4.5 A Elbow Wrist 5.2 29.0 56 A Elbow 8.4 3.9 Right Ulnar Motor (Abd Dig Minimi) Wrist 3.0 3.9 A Elbow Wrist 7.4 28.0 38 A Elbow 10.4 1.9 B Elbow Wrist 3.5 20.0 57 B Elbow 6.5 0.6 F Wave Studies NR F-Lat (ms) L-R F-Lat (ms) Left Median (Mrkrs) (Abd Poll Brev) 29.12 0.75 Right Median (Mrkrs) (Abd Poll Brev) 28.37 0.75 Left Ulnar (Mrkrs) (Abd Dig Min) 28.83 0.29 Right Ulnar (Mrkrs) (Abd Dig Min) 29.12 0.29 EMG Side Muscle Nerve Root Ins Act Fibs Amp Dur Recrt Comment Right 1stDorInt Ulnar C8-T1 Nml Nml Nml >12ms +2 Right Ext Indicis Radial (Post Int) C7-8 Nml Nml Nml Nml Nml Right Ext Digitorum Radial (Post Int) C7-8 Nml Nml Nml Nml Nml Right BrachioRad Radial C5-6 Nml Nml Nml Nml Nml Right PronatorTeres Median C6-7 Nml Nml Nml Nml Nml Right Abd Poll Brev Median C8-T1 Nml Nml Nml >12ms Nml Right ABD Dig Min Ulnar C8-T1 Nml Nml Nml >12ms +2 Left 1stDorInt Ulnar C8-T1 Nml Nml Nml Nml Nml Left Ext Indicis Radial (Post Int) C7-8 Nml Nml Nml Nml Nml Left Ext Digitorum Radial (Post Int) C7-8 Nml Nml Nml Nml Nml Left BrachioRad Radial C5-6 Nml Nml Nml Nml Nml Left PronatorTeres Median C6-7 Nml Nml Nml Nml Nml Left Abd Poll Brev Median C8-T1 Nml Nml Nml >12ms Nml Left ABD Dig Min Ulnar C8-T1 Nml Nml Nml Nml Nml MTDD
== END 2023-05-21 09:42 | disposition home or self-care (01) ==
LOC: ANHNEURO 09:42
PROVIDERS: PCP Family Medicine; Visit Provider Family Medicine
DX: G56.03 Carpal tunnel syndrome, bilateral upper limbs (principal); G56.21 Lesion of ulnar nerve, right upper limb
CPT/HCPCS: 95886; 95911

== ENCOUNTER 2023-06-25 15:52 | Outpatient (CLI) | payer OTHER, SELFPAY ==
--- NOTE | ~2023-06-25 | US_ITS ---
EXAMINATION: US soft tissue UE RT DATE: 06/25/2023 16:06 INDICATION: Right dorsal forearm mass. TECHNIQUE: Multiple grayscale and Doppler ultrasound images of the right upper limb were obtained. COMPARISON: None FINDINGS: In the patient's area of concern in the dorsal distal forearm, there is a 1.1 x 0.6 x 0.9 c m hyperechoic subcutaneous mass. IMPRESSION: 1. 1.1 cm hyperechoic subcutaneous mass in the distal forearm, most likely a lipoma or inflammation. Reviewed, dictated and finalized at location A. IMPRESSION: 1. 1.1 cm hyperechoic subcutaneous mass in the distal forearm, most likely a li alicia or inflammation.
== END 2023-06-25 15:53 ==
LOC: MICIMG 15:53
PROVIDERS: PCP Plastic Surgery; Visit Provider Plastic Surgery
DX: R22.31 Localized swelling, mass and lump, right upper limb (principal)
CPT/HCPCS: 76882

== ENCOUNTER 2023-08-07 00:19 | Day surgery (SDC) | payer OTHER, SELFPAY ==
[2023-07-24 14:50] VITALS: BMI 37.8
--- NOTE | 2023-07-24 15:00 | PC.NURSE ---
Report to the Outpatient Waiting Room, entrance under the green pavilion located off [facility], at time _1030_ on date __08/07/23__. Planned Procedure Time: _1230_. Time changes happen often and if your time is changed the preop area will call you the afternoon before. - You and your visitor will be asked to self-screen and do not enter if you have any COVID symptoms. - A mask is optional within the hospital at this time. - No food/fluids from midnight until time of surgery Take the following medications with a SIP of water the morning of surgery: _CARVEDILOL, CELEBREX, DULOXETINE, TOPIRAMATE, & PAIN MED IF NEEDED_ DO NOT STOP ANY OF YOUR OTHER PRESCRIPTION MEDICATIONS PRIOR TO SURGERY ?EXCEPT THE FOLLOWING Medications to discontinue - _ASPIRIN INSTRUCTED BY DR. STERN_ Date to take last dose Please no make-up, nail french, hairspray, perfume, deodorant, or body powder the day of surgery. No jewelry (including any body piercings) or valuables the day of surgery, leave them at home. Please take a shower or bath the night before, or the morning of, surgery with an antibacterial soap. Wear comfortable, loose fitting clothing. Children are encouraged to wear pajamas. - Jewelry must be removed prior to entering the operating room. Rings and piercings that are not removed may be cut off. - The hospital will not accept responsibility for valuables. - Please leave all valuables, including medications, at home the day of surgery. If you are going home after surgery, a licensed independent driver must drive you home. - NO public transportation without another adult if you receive anesthesia. - We recommend that an adult stay with you for 24 hours following discharge. - We also recommend that you do not drive, make important decision, drink alcoholic beverages, or take any drugs that were not prescribed by your health care provider for at least 24 hours after your discharge time. For Pediatric surgeries, we recommend two adults accompany the child home. Follow any additional instructions given to you from your surgeon. If you or anyone in your household have experienced Covid symptoms in the past week, please notify your surgeon or the nurse liaison at the phone number below for possible testing. Telephone instructions given to ____PT and asked if any additional questions and then verbalized understanding. Patient advised to call surgeon office or pre surgery nurse liaison [phone] if any additional questions.
--- NOTE | 2023-08-07 06:58 | PM.HPGS ---
History of Present Illness History of Present Illness Chief complaint: right carpal and cubital tunnel syndrome Narrative: Patient seen and examined in pre-operative holding area. No interval change in medical history or symptoms. Patient recalls previous discussion of benefits and alternatives to procedure. Continues to desire to proceed with right endoscopic possible open carpal tunnel release, right cubital tunnel release, right dorsal forearm mass excision. Reviewed procedure, post-op expectations and risks including but not limited to bleeding, infection, injury to tendon/nerve/vessel, decreased hand function, stiffness, RSD, no change or worsening of symptoms, recurrence. I discussed the possible use of assistants and their participation in the case. Patient stated understanding and signed the consent form wishing to proceed. Review of Systems Review of Systems: All systems reviewed & are unremarkable except as noted in HPI and below PMFSH Past Medical History Medical History Abnormal breast tissue Acute medial meniscus tear of right knee Acute non-recurrent maxillary sinusitis Acute sinusitis CT of the paranasal sinuses on 10/04/2022 was unremarkable Arthritis of right knee Bilateral carpal tunnel syndrome (~2023) Bilateral pulmonary embolism (12/09/20) BMI 36.0-36.9,adult BMI 39.0-39.9,adult Body mass index (BMI) of 40.1 to 44.9 in adult Breast cancer screening by mammogram normal mammogram 10/19/2022. Cellulitis Cervical radiculitis X-ray of the cervical spine on 05/16/2023 reveals mild Degenerative changes. Cervicalgia Chronic anxiety Chronic deep vein thrombosis (DVT) Chronic depression Chronic low back pain with right-sided sciatica Chronic pain in right shoulder (~08/2022) X-ray of the right shoulder on 11/10/2022 reveals mild arthritis with no fracture. Chronic pain of both ankles Colon polyp, hyperplastic COVID-19 (12/16/21) tested positive 12/17/2021. Fully vaccinated. DVT (deep venous thrombosis) (12/09/20) DVT left lower leg with chronic DVT present on Doppler 04/10/2021 left popliteal, gastrocnemius and peroneal vein Dysuria Edema of both ankles Elevated TSH repeat TSH normal at 1.93 with free T4 0.9 on 04/06/2021 Encounter for Postoperative Care Essential (primary) hypertension Fever blister Fluid overload Frozen shoulder (~2011) GERD (gastroesophageal reflux disease) History of migraine headaches Hypertension Hypoxia Internal derangement of knee Knee effusion, right Left acute otitis media Left hand pain Left wrist pain Migraine without aura and without status migrainosus, not intractable Mixed hyperlipidemia total cholesterol 145, triglycerides 140, HDL 43 and LDL 78 on 10/21/2019. Total cholesterol 181, HDL 52, triglycerides 96, LDL 110 on 04/06/2022. Cholesterol 178, triglycerides 192, HDL 43, LDL 104 with ratio 4.1 on 10/26/2022. Morbid obesity with BMI of 40.0-44.9, adult Multiple thyroid nodules (12/09/20) multi nodular goiter ultrasound thyroid 12/12/2020 with recheck in 1 year Obesity (BMI 30-39.9) Oral candidiasis Paresthesia of both hands EMG and nerve conduction study on 05/21/2023 with bilateral carpal tunnel syndrome and moderate to severe right ulnar neuropathy. Pulmonary hypertension (12/10/20) moderate pulmonary hypertension on echocardiogram 12/10/2020 with ejection fraction 55-60% with grade 1 diastolic dysfunction and mild mitral valve regurgitation and moderate tricuspid valve regurgitation Right flank pain Right knee DJD total knee replacement Right-sided thoracic back pain Seasonal allergic rhinitis Shortness of breath Sting, hornet TMJ (dislocation of temporomandibular joint) (~1979) Ulnar neuropathy at elbow of right upper extremity (~2023) Surgical History Surgical History H/O arthroscopy of right knee H/O breast biopsy H/O colonoscopy with polypec
--- NOTE | 2023-08-07 06:58 | W.PM.PROC2 ---
Procedure Note - Detailed Date of Procedure 08/07/23 Pre-op Diagnosis right carpal and cubital tunnel syndrome and right wrist/forearm mass Post-op Diagnosis Same Procedure Performed right ectr CuTR and wrsit mass excision Surgeon Shana Ferro MD Anesthesia MAC Description of Procedure INFORMED CONSENT: The patient was seen and examined and marked in the pre-op area.? The patient signed the consent form. PROCEDURE IN DETAIL:The patient taken back to OR on the stretcher in supine position. Time out performed with anesthesia, surgeon and staff agreeing on patient's name site and surgery to be performed SCDs were placed on the lower extremities and inflated. A tourniquet was placed on {right} upper extremity and antibiotics given IV After anesthesia administered sedation I injected {10}cc 1%lido with epi and 0.5% marcaine plain at the operative sites The?{right upper extremity}?was prepped and draped in sterile fashion the??{right upper extremity} was? exsanguinated with Esmarch bandage and tourniquet inflated to 250mmHg I made a transverse incision in the {right} volar distal wrist crease through skin and dermis with 15 blade scalpel.? Littler scissors spread down to antebrachial fascia. A small incision was made in antebrachial fascia allowing access to Carpal tunnel. I proceeded with sequential dilation staying in line with the ring finger and hugging the hook of the hamate.? I then used the synovial elevator to free any adhesions from the underside of the transverse carpal ligament. Next I was able to insert the Microaire endoscopic carpal tunnel device with direct visualization of the transverse fibers on the monitor and proceeded with complete segmental retrograde release of the ligament in its entirety.? I irrigated with normal saline and closed with 4-0 monocryl for dermis and subcuticular closure. I next proceeded with making a longitudinal incision between two heads for flexor carpi ulnaris at end of {right} cubital tunnel with 15 blade scalpel.? Littler scissors were used to spread down to FCU fascia.? An incision was made in FCU fascia and ulnar nerve identified exiting cubital tunnel.? I proceeded with complete retrograde release of the cubital tunnel including 7cm proximal for the intermuscular septum.? The nerve appeared very atrophic and flat though there were visible vaso nervorum.? There was no subluxation on full elbow range of motion. ? I irrigated with normal saline and closure with 4-0 monocryl for dermis and subcuticular. Next I proceded with making an incisoin over the dorsal ulnar forearm mass through skin and dermis. Littler scissors were used to spread through subq noting mass appeared to be subfascial. Incision made in antebracial fascia with 15 blade then littler scissors were used to dissect around the mass. I irrigated with normal saline and closed fascia, dermis and skin with 4-0 monocryl. The incisions were covered with Dermabond then 4x4s, pau, and a posterior elbow and volar wrist splint for patient safety, security and comfort and secured with lana bandages after the tourniquet was let down noting the hand was warm and well perfused.? Patient awaken from anesthesia and transferred to recovery in stable condition Complications - none EBL- 4cc Disposition - home in stable conditions [facility] Billing Surgery - Charge Forward: Surgery Billing ([id number])
--- NOTE | 2023-08-07 09:33 | WPDANESEPPF ---
Anes - Initial Pre Proc Eval Procedure: Operation Date: 08/07/23 12:00 Proposed Procedures p Right Endoscopic Carpal Tunnel Release, Possible Open, Possible Cubital Tunnel Release, - Shana Ferro MD s Excision Right Dorsal Forearm Mass - Shana Ferro MD Date/Time: 08/07/23 09:33 Surgeon: Shana Ferro MD Pre Op Diagnosis: right carpal and cubital tunnel syndrome Patient Data Age: 68 Gender: F Height: 1.63 m Weight: 100 kg Allergies Allergy/AdvReac Type Severity Reaction Status Date / Time nickel Allergy Rash Verified 07/24/23 14:45 contact metal agent AdvReac SKIN Verified 07/24/23 14:45 IRRITATION Home Medications Medication Instructions Recorded Confirmed Type acetaminophen 325 mg tablet 325 mg PO Q6H PRN Pain 07/11/21 07/24/23 History (Tylenol) carvedilol 12.5 mg tablet 12.5 mg PO Q12H #60 tabs 10/18/22 08/07/23 Rx aspirin 81 mg tablet,delayed 81 mg PO DAILY 11/08/22 08/07/23 History release (Pacific Aspirin) azelastine 137 mcg (0.1 %) nasal 1 spray intranasal Q12H PRN 11/08/22 07/24/23 Rx spray aerosol allergies #30 mL esomeprazole magnesium 40 mg 40 mg PO DAILY #30 caps 11/08/22 07/24/23 Rx capsule,delayed release (Nexium) duloxetine 60 mg capsule,delayed 60 mg PO DAILY #30 caps 05/29/23 07/24/23 Rx release topiramate 50 mg tablet (Topamax) 50 mg PO BID 07/08/23 07/24/23 History celecoxib 200 mg capsule (Celebrex) 200 mg PO DAILY pain 07/24/23 07/24/23 History mupirocin 2 % topical ointment 1 applic topical HS 07/24/23 07/24/23 History triamcinolone acetonide 0.1 % 1 applic topical BID PRN Itching 07/24/23 07/24/23 History topical ointment tramadol 50 mg tablet 50 mg PO Q6H PRN pain #12 tabs 08/07/23 Rx Patient hx anesthesia problems: none Family hx anesthesia problems: none Results Review: All pre-operative results and documents have been reviewed as part of the pre-operative evaluation. [facility] Past Medical History Medical History Abnormal breast tissue Acute medial meniscus tear of right knee Acute non-recurrent maxillary sinusitis Acute sinusitis CT of the paranasal sinuses on 10/04/2022 was unremarkable Arthritis of right knee Bilateral carpal tunnel syndrome (~2023) Bilateral pulmonary embolism (12/09/20) BMI 36.0-36.9,adult BMI 39.0-39.9,adult Body mass index (BMI) of 40.1 to 44.9 in adult Breast cancer screening by mammogram normal mammogram 10/19/2022. Cellulitis Cervical radiculitis X-ray of the cervical spine on 05/16/2023 reveals mild Degenerative changes. Cervicalgia Chronic anxiety Chronic deep vein thrombosis (DVT) Chronic depression Chronic low back pain with right-sided sciatica Chronic pain in right shoulder (~08/2022) X-ray of the right shoulder on 11/10/2022 reveals mild arthritis with no fracture. Chronic pain of both ankles Colon polyp, hyperplastic COVID-19 (12/16/21) tested positive 12/17/2021. Fully vaccinated. DVT (deep venous thrombosis) (12/09/20) DVT left lower leg with chronic DVT present on Doppler 04/10/2021 left popliteal, gastrocnemius and peroneal vein Dysuria Edema of both ankles Elevated TSH repeat TSH normal at 1.93 with free T4 0.9 on 04/06/2021 Encounter for Postoperative Care Essential (primary) hypertension Fever blister Fluid overload Frozen shoulder (~2011) GERD (gastroesophageal reflux disease) History of migraine headaches Hypertension Hypoxia Internal derangement of knee Knee effusion, right Left acute otitis media Left hand pain Left wrist pain Migraine without aura and without status migrainosus, not intractable Mixed hyperlipidemia total cholesterol 145, triglycerides 140, HDL 43 and LDL 78 on 10/21/2019. Total cholesterol 181, HDL 52, triglycerides 96, LDL 110 on 04/06/2022. Cholesterol 178, triglycerides 192, HDL 43, LDL 104 with ratio 4.1 on 10/26/2022. Morbid obesity with BMI of 40.0-44.9, adult Mult
[2023-08-07 10:33] VITALS: BP 146/76; PULSE 69; RESP 16; TEMP 36.2; O2SAT 96
[2023-08-07 10:36] VITALS: BMI 39.8
[2023-08-07] MEDS: LACTATED RINGERS 1,000 ML 30 ML IV CONT (10:37)
[2023-08-07] MEDS: LIDO 1%/EPINEPHRINE 1:100,000 50 ML VIAL 10 ML INFILTRATE (10:55)
[2023-08-07] MEDS: ceFAZolin 2 GM/D5W 50 ML 2 GM/50 ML BAG IVPB (11:04)
[2023-08-07 11:56] VITALS: BP 151/77; PULSE 64; RESP 14; O2SAT 97
[2023-08-07 12:25] VITALS: BP 148/89; PULSE 58; RESP 20
== END 2023-08-07 13:01 | disposition home or self-care (01) ==
PROVIDERS: PCP Family Medicine; Visit Provider Plastic Surgery
PROC: 01N54ZZ Release Median Nerve, Percutaneous Endoscopic Approach (ICD-10-PCS; CPT 29848; principal; 2023-08-07 12:00)
PROC: (CPT 29848; 2023-08-07 12:00)
DX: G56.01 Carpal tunnel syndrome, right upper limb (principal); G56.21 Lesion of ulnar nerve, right upper limb; D17.21 Benign lipomatous neoplasm of skin and subcutaneous tissue of right arm; F41.9 Anxiety disorder, unspecified; F32.A Depression, unspecified; I10 Essential (primary) hypertension; K21.9 Gastro-esophageal reflux disease without esophagitis; E78.2 Mixed hyperlipidemia; I27.20 Pulmonary hypertension, unspecified; Z87.891 Personal history of nicotine dependence; E66.9 Obesity, unspecified; Z68.39 Body mass index [BMI] 39.0-39.9, adult; Z79.82 Long term (current) use of aspirin; Z86.718 Personal history of other venous thrombosis and embolism
CPT/HCPCS: 29848; 64718; 25075; 88304; J0690; J2250; J2405; J2704; J3010; J7120

== ENCOUNTER 2024-02-03 09:16 | Outpatient (CLI) | payer OTHER, SELFPAY ==
--- NOTE | ~2024-02-03 | MR_ITS ---
MRI of the brain Clinical History: Migraine headache Technique: Axial and sagittal T1-weighted images were acquired. These were followed by axial T2-weigh mona, diffusion weighted, gradient, and FLAIR images. Findings: There is no acute infarct, intracranial hemorrhage or mass lesion. There are minimal chroni c white matter changes in the periventricular white matter bilaterally. Ventricles and subarachnoid spaces are unremarkable. Orbits are unremarkable. Paranasal sinuses and m astoid air cells are clear. Major intracranial flow voids are intact. Sagittal midline structures are intact. IMPRESSION: No acute abnormality. Minimal chronic white matter changes. Reviewed, dictated and finalized at location M. IFIED OPHTHALMIC TECHNICIAN
== END 2024-02-03 09:17 | disposition home or self-care (01) ==
LOC: MICIMG 09:19
PROVIDERS: PCP Family Medicine; Visit Provider Family Medicine
DX: G43.909 Migraine, unspecified, not intractable, without status migrainosus (principal)
CPT/HCPCS: 70551

== ENCOUNTER 2024-10-06 15:23 | Outpatient (CLI) | payer MEDICARE, OTHER, SELFPAY ==
--- NOTE | ~2024-10-06 | MM_ITS ---
EXAMINATION: MM screening [facility] BI w carl HISTORY: Screening mammogram TECHNIQUE: Craniocaudal and mediolateral oblique 3-D tomosynthesis images were obtained and synthetic 2-D images were generated. CAD analysis was submitted and interpreted. COMPARISON: 10/19/2022, 10/13/2021, 07/15/2020 BREAST PARENCHYMAL COMPOSITION:Not Dense. There are scattered areas of fibroglandular density. FINDINGS: No suspicious mass, calcification, or architectural distortion are identified in either breast to suggest malignancy. There has been no suspicious interval change. IMPRESSION: No mammographic evidence of malignancy. Recommend routine screening mammography in one year. BI-RADS Category 1: Negative Reviewed, dictated and finalized at location .
--- OUTSIDE RECORDS SUMMARY | 2024-10-06 15:49 | XMS_ITS | Clinical Summary ---
Author Organization [facility] Address [address] [place] [address] Care Team Providers Care Cbx Operator Name Role Phone Víctor Mathews MD Primary Care Provider [phone] Source Comments [facility],non-owned Affiliates and Associated Physician Practices is amultiple site organization consisting of ambulatory clinics and hospital sitesin [place], [place], [place] and [place]. This disclosure is being madepursuant to the Care Everywhere program and may not contain all information available regarding this patient. Last updated 17.[facility] Allergies No known active allergies Medications * Be aware that medications may not be up to date on this document. Alwaysverify current medications with the patient. 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 Gender Identity Not on file Sexual Orientation Not on file Last Filed Vital Signs Vital Sign Reading Time Taken Comments Blood Pressure 128/80 09/30/2016 12:10 PM CDT Pulse 61 09/30/2016 12:10 PM CDT Temperature 37.1 C (98.8 F) 09/30/2016 12:10 PM CDT Respiratory Rate - - Oxygen Saturation 96% 09/30/2016 12:10 PM CDT Inhaled Oxygen Concentration - - Weight 95.3 kg (210 lb) 09/30/2016 12:10 PM CDT Height 165.1 cm (5' 5) 09/30/2016 12:10 PM CDT Body Mass Index 34.95 09/30/2016 12:10 PM CDT Plan of Treatment Health Maintenance Due Date Last Done Comments BONE DENSITY TESTING 1955 COLOGUARD (AGES 45-75) - COL ON CA SCREENING 1957 COLON MONITORING 1957 COLONOSCOPY - COLON CA SCREENING 1957 CT COLONOGRAPHY - COLON CA SCREENING 1957 Colorectal Cancer Screening 1957 FIT - COLON CA SCREENING 1957 FLEX SIG - COLON CA SCREENING 1957 LIPID TESTING 1957 HEPATITIS C SCREENING 07/12/1975 DTAP/TDAP/TD VACCINES (1 - Tdap) 1976 PNEUMOCOCCAL VACCINE 50+ (1 of 1 - PCV) 07/17/2007 ZOSTER VACCINE (1 of 2) 07/17/2007 SCREENING FOR DIABETES 09/30/2016 MAMMOGRAM 07/08/2021 07/09/2019, 07/29/2018 COVID-19 VACCINE (1 - 2023-2 5 season) 2023 DEPRESSION SCREENING 02/19/2024 INFLUENZA VACCINE (#1) 2024 Respiratory Syncytial Virus (RSV) Vaccine Pt: or over 60 yrs (1 - 1-dose 75+ series) 2032 HEPATITIS B VACCINE Aged Out No longe r eligible based on patient's age to complete this topic HIB VACCINE Aged Out No longer eligi ble based on patient's age to complete this topic HPV VACCINE Aged Out No longer eligi ble based on patient's age to complete this topic MENINGOCOCCAL (Group B) VACCINE SHARED DECISION-MAKING Aged Out No longer eligible based on patient's age to complete this topic MENINGOCOCCAL GROUPS A/C/Y/W VACCINE Aged Out No longer eligible b ased on patient's age to complete this topic Procedures Procedure Name Priority Date/Time Associated Diagnosis Comments MAMMO BILAT DIAGNOSTIC Routine 07/09/2019 1:56 PM CDT Atypical ductal hyperplasia of left breast from Last 3 Months or Most Recently Relevant to Health Maintenance Results * MAMMO BILAT DIAGNOSTIC (07/09/2019 1:56 PM CDT) Anatomical Region Laterality Modality Breast Bilateral Mammography 07/09/2019 1:39 PM CDT Impressions 07/09/2019 2:21 PM CDT IMPRESSION: No mammographic or sonographic evidence of malignancy in either breast. ASSESSMENT: BI-RADS Category 2: Benign finding(s). RECOMMENDATION: Annual screening mammography and annual bilateral whole breast ultrasound for supplemental screening. She does not wish to undergo screening breast MRI. Findings discussed with the patient by Dr. Nolasco. Result letter given to the patient. This report was electronically signed by CIPRIANO NOLASCO M.D. on 07/09/2019 2:21 PM . Narrative 07/09/2019 2:21 PM CDT BILATERAL DIAGNOSTIC MAMMOGRAM BILATERAL BREAST ULTRASOUND TECHNIQUE: Images were performed using 3D tomosynthesis images with reconstructed/synthetic 2D images. CAD analysis was performed. DATE: 07/09/2019. HISTORY: 63-year-old female with biopsy-proven atypical ductal hyperplasia, radial scar, and papilloma of the left breast, status post excisional biopsy, on tamoxifen, referred for annual mammography as well as bilateral whole breast ultrasound for submental screening due to increased risk for breast cancer. She has no new breast complaints. She has had diffuse left breast aching since surgery. COMPARISON: 05/02/2018, 02/22/2017. BREAST COMPOSITION: There are scattered areas of fibroglandular density. FINDINGS: There are now postsurgical changes in the left breast. No suspicious mass, architectural distortion, or calcifications in either breast. Ultrasound of all 4 quadrants, the subareolar breasts, and the axillae performed by the inspector brake lining. No suspicious solid or cystic mass in either breast. No right or left axillary lymphadenopathy. Loretta Ayala DO MAMMO ORDERABLES Final Resu lt from Last 3 Months or Most Recently Relevant to Health Maintenance Insurance [facility] [id number] [place] [address] * Guarantor: TRINY ALARCON Account Type Relation to Patient Date of Phone Billing Address Personal/Family [address] [place] [address] [place] [address] SELF PAY NO INSURANCE Member Subscriber Plan / Payer (Ef fective for All Dates) Name:Triny Alarcon Member ID:Not on file Relation to Subscriber:Not on file Name:TRINY ALARCON Subscriber ID:Not on file Address: [address] [place], [place] [address] Payer ID:Not on file Group ID:Not on file Type:Self Pay Address: [place], [place] * Guarantor: TRINY ALARCON Account Type Relation to Patient Date of Phone Billing Address Personal/Family [address] [place] [place] [id number] [employer] SELF PAY NO INSURANCE Member Subscriber Plan / Payer (Ef fective for All Dates) Name:Triny Alarcon Member ID:Not on file Relation to Subscriber:Not on file Name:TRINY ALARCON Subscriber ID:Not on file Address: [address] [place] [address] Payer ID:Not on file Group ID:Not on file Type:Self Pay Address: [place], [place] * Guarantor: TRINY ALARCON Account Type Relation to Patient Date of Phone Billing Address Personal/Family [address] [id number] [employer] SELF PAY NO INSURANCE Member Subscriber Plan / Payer (Ef fective for All Dates) Name:Triny Alarcon Member ID:Not on file Relation to Subscriber:Not on file Name:TRINY ALARCON Subscriber ID:Not on file Address: [address] [place] [address] Payer ID:Not on file Group ID:Not on file Type:Self Pay Address: [place], [place] Care Teams Cbx Operator Relationship Specialty Start Date End Date Víctor Mathews MD [address] [place] [address] PCP - General Family Medicine 07/09/19
--- OUTSIDE RECORDS SUMMARY | 2024-10-06 15:49 | XMS_ITS | Clinical Summary ---
Author Organization [facility] Address [address] [facility] [place] [address] Care Team Providers Care Scratcher Name Role Phone Víctor Mathews MD Primary Care Provider [phone] Allergies No known active allergies Medications carvedilol (COREG) 12.5 mg tablet TAKE 1 TABLET BY MOUTH TWICE DAILY FOR HYPERTENSION 3 9 Active topiramate (TOPAMAX) 50 mg tablet TAKE 1 TABLET BY MOUTH TWICE DAILY FOR MIGRAINE 3 9 Active FLUoxetine (PROzac) 10 mg capsule Take 10 mg by mouth daily. Active esomeprazole magnesium (NexIUM) 40 mg suspension delayed release TAKE 40 MG DAILY (TAKE 30 MINUTES BEFORE BREAKFAST) 2 Active celecoxib (CeleBREX) 200 mg capsule TAKE 1 CAPSULE BY MOUTH ONCE DAILY NEEDED FOR PAIN 4 Active aspirin (ECOTRIN EC) 81 mg Tablet, Delayed Release (E.C.) Take 81 mg by mouth daily. Active Active Problems Problem Noted Date Diagnosed Date Acute saddle pulmonary embolism without acute co r pulmonale 12/20/2020 Acute deep vein thrombosis ( DVT) of proximal vein of left lower extremity 12/20/2020 SERM use (selective estrogen receptor modulator) 11/28/2018 Intraductal papilloma of left breast 08/26/2018 Radial scar of breast 08/05/2018 Atypical ductal hyperplasia of left breast 08/05 Severe obesity (BMI 35.0-39.9) with comorbidity 07/18/2018 Resolved Problems Problem Noted Date Diagnosed Date Resolved Date Abnormal mammogram 07/18/2018 9 Abnormal ultrasound of breast 07/18/2018 08/05/2018 Breast signs and symptoms 07/18/2018 Social History Tobacco Use Types Packs/Day Years Used Date Smoking Tobacco: Former Cigarettes 1 15 0 07/19/1968 - 07/20/1983 Smokeless Tobacco: Never Tobacco Cessation:Counseling Given: Not Answered Alcohol Use Standard Drinks/Week Comments Not Currently 0 (1 standard drink = 0.6 oz pur e alcohol) Comments No Sex and Gender Information Value Date Recorded Sex Assigned at Not on file Legal Sex Female 12:48 PM CDT Gender Identity Not on file Sexual Orientation Not on file Last Filed Vital Signs Vital Sign Reading Time Taken Comments Blood Pressure 145/73 06/20/2023 3:36 PM CDT Pulse 65 06/20/2023 3:33 PM CDT Temperature 35.7 C (96.3 F) 06/20/2023 3:33 PM CDT Respiratory Rate 14 06/20/2023 3:33 PM CDT Oxygen Saturation 96% 06/20/2023 3:33 PM CDT Inhaled Oxygen Concentration - - Weight 105.7 kg (233 lb) 06/20/2023 3:33 PM CDT Height 160 cm (5' 3) 10/20/2021 1:15 PM CDT Body Mass Index 41.27 10/20/2021 1:15 PM CDT Plan of Treatment Upcoming Encounters Date Type Department Care Team (Late st Contact Info) Description 10/13/2024 11:45 AM CDT Office Visit [facility] Oncology and Hematology - [place] [address] [facility] [address] [place] [address] Reji Peter MD [address] [facility] [address] [place] [address] Health Maintenance Due Date Last Done Comments Pre-Diabetes and Diabetes Screening 1957 DTAP/TDAP/TD VACCINES (1 - Tdap) 1976 COLORECTAL SCREENING 2002 Colorectal Cancer Screening 2002 FIT-DNA Q 3 years 2002 FIT/FOBT Q 1 year 2002 Flex Sig/CT Colonography Q 5 years 2002 PNEUMOCOCCAL VACCINE 50+ YEA RS (1 of 1 - PCV) 07/17/2007 ZOSTER VACCINE (1 of 2) 07/17/2007 RSV VACCINE (60+ or ) (1 - Risk 60-74 years 1-dose series) 2017 BREAST CANCER SCREENING 07/15/2021 07/16/19 21, 07/09/2019, 07/09/2019, Additional history exists OSTEOPOROSIS SCREENING 2022 INFLUENZA VACCINE (#1) 2024 10/30/2022, 2019 Procedures Procedure Name Priority Date/Time Associated Diagnosis Comments MAMMO SCREEN BILAT W OR WO CAD Routine 07/15/2020 Visit for screening mammogram from Last 3 Months or Most Recently Relevant to Health Maintenance Results * MAMMO SCREEN BILAT W OR WO CAD (07/15/2020) Anatomical Region Laterality Modality Breast Bilateral Mammography Reji Peter MD MAMMO ORDERABLES Final Result from Last 3 Months or Most Recently Relevant to Health Maintenance Insurance [employer] PPO [phone] [employer] PPO [id number] Care Teams Scratcher Relationship Specialty Start Date End Date Víctor Mathews MD [address] [place] [id number] PCP - General Family Practice 04/14/19
--- OUTSIDE RECORDS SUMMARY | 2024-10-06 15:49 | XMS_ITS | Clinical Summary ---
Author Organization [facility] Address [address] [place] [address] Care Team Providers Care Review Scheduling Coordinator Name Role Phone Unavailable Primary Care Provider Unavailabl e Social History Tobacco Use Types Packs/Day Years Used Date Smoking Tobacco: Never Assessed Comments Unknown Sex and Gender Information Value Date Recorded Sex Assigned at Not on file Legal Sex Female 5:58 PM CDT Gender Identity Not on file Sexual Orientation Not on file Plan of Treatment Health Maintenance Due Date Last Done Comments Colorectal Cancer Screening Colonoscopy (10 Years) 1957 Hepatitis C 07/17/1975 DTaP, Tdap and Td Vaccines ( 1 - Tdap) 1976 Mammogram Screening 1997 Pneumococcal Vaccine: 50+ Ye ars (1 of 1 - PCV) 07/17/2007 Zoster Vaccines (1 of 2) 07/17/2007 Dexa Scan (General) 2022 COVID-19 Vaccine ( - 2023-2 5 season) 2023 RSV Immunization or 60+ Years (1 - 1-dose 75+ series) 2032 Meningococcal B Vaccine Aged Out No l onger eligible based on patient's age to complete this topic Meningococcal Vaccine Aged Out No tobin nahum eligible based on patient's age to complete this topic RSV Immunizations Under 20 Months Aged Out No longer eligible based on patient's age to complete this topic
--- OUTSIDE RECORDS SUMMARY | 2024-10-06 15:49 | XMS_ITS | Encounter Summary ---
Author Organization [facility] Address [address] [facility] [place] [address] Care Team Providers Care Etl Application Developer Name Role Phone Víctor Mathews MD Primary Care Provider [phone] Encounter Details Date Type Department Care Team (Late st Contact Info) Description 09/18/2022 Lab Requisition [facility] - DermPath Lab [address] [facility], [place] [phone] 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 Gender Identity Not on file Sexual Orientation Not on file documented as of this encounter Plan of Treatment Not on file documented as of this encounter Procedures Procedure Name Priority Date/Time Associated Diagnosis Comments DERMATOPATHOLOGY Routine 09/17/2022 3:33 AM CDT 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 SKIN, left arm: DERMAL SCAR RESIDUAL MELANOMA NOT IDENTIFIED (L90.5) 3 2:06 PM T DERMATOPATHOLOGY LABORATORY at 1406 CDT Clinical History Malignant Melanoma in situ Check margins 3 2:06 PM CDT DERMATOPATHOLOGY LABORATORY Gross Description Specimen A: Received is one formalin filled container labeled with the patient's name and designated left arm. The specimen consists of a non-oriented ellipse of skin measuring 02k36m93 mm. The epidermal surface is unremarkable. The margin is inked green. The 12 o'clock and 6 o'clock tips are submitted in cassette 1. The remainder of the ellipse is serially sectioned and submitted in cassette 2-4. Jar 0. 3 2:06 PM CDT DERMATOPATHOLOGY LABORATORY Microscopic Description Specimen A. SKIN, left arm: There are fibroblasts and collagen bundles oriented parallel to the skin surface. There are elongated blood vessels, some of which are oriented perpendicular to the skin surface. No residual melanoma is identified. 3 2:06 PM CDT DERMATOPATHOLOGY LABORATORY Disclaimer An external and internal positive and negative controls are appropriate for the histochemical, immunohistochemical and immunofluorescence stain(s) in this case (if any), except where stated explicitly. The performance characteristics of the stain(s) cited in this report were developed and its performance characteristic determined by the Dermatopathology Laboratory at [facility], directed by Dr. Jackelyn Wen. These tests need not be, and therefore are not, approved by the [place] Food and Drug Administration. The tests are used for clinical purposes. 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
--- OUTSIDE RECORDS SUMMARY | 2024-10-06 15:49 | XMS_ITS | Encounter Summary ---
Author Organization [facility] Address [address] [facility] [place] [address] Care Team Providers Care Hand Frame Surgical Elastic Knitter Name Role Phone Víctor Mathews MD Primary Care Provider [phone] Encounter Details Date Type Department Care Team (Late st Contact Info) Description 09/11/2022 Lab Requisition [facility] - DermPath Lab [address] [facility], [place] [phone] Virginia Serna PA-C [address] [place] [address] Neoplasm of uncertain behavior of skin Social History Tobacco Use Types Packs/Day Years Used Date Smoking Tobacco: Former Cigarettes Q uit: 1986 Smokeless Tobacco: Never Comments Unknown Sex and Gender Information Value Date Recorded Sex Assigned at Not on file 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 Gender Identity Not on file Sexual Orientation Not on file documented as of this encounter Plan of Treatment Not on file documented as of this encounter Procedures Procedure Name Priority Date/Time Associated Diagnosis Comments DERMATOPATHOLOGY Routine 09/10/2022 12:0 0 AM CDT Neoplasm of uncertain behavior of skin documented in this encounter Results * DERMATOPATHOLOGY (09/10/2022 12:00 AM CDT) Case Report Dermatopathology Report Case: [id number] Authorizing Provider: Virginia Serna PA-C Collected: 09/10/2022 12:00 AM Ordering Location: [facility] DermPath Lab Received: 09/12/2022 02:10 PM Pathologist: Hina Christina MD Specimen: Skin, left arm 12:28 PM T DERMATOPATHOLOGY LABORATORY Final Diagnosis Specimen A. SKIN, left arm: MELANOMA IN SITU, LENTIGINOUS TYPE (D03.62) PRESENT AT MARGIN (see microscopic description) 12:28 PM T DERMATOPATHOLOGY LABORATORY at 1228 CDT Clinical History Atypical Nevus 12:28 PM T DERMATOPATHOLOGY LABORATORY Gross Description Specimen A: Received is one formalin filled container labeled with the patient's name and designated left arm. The specimen consists of three (3) pieces of a shave biopsy measuring 3x1x1, 3x1x1, 92t09w2 mm. Jar 0. 12:28 PM CDT DERMATOPATHOLOGY LABORATORY Microscopic Description Specimen A. SKIN, left arm: There is a proliferation of melanocytes distributed in an irregular pattern along the dermal-epidermal junction with single cells predominating. Focal areas of confluence are present. This melanocytic proliferation is highlighted on MART-1/Melan-A. This lesion is present at the margin of the specimen. 12:28 PM CDT DERMATOPATHOLOGY LABORATORY Disclaimer An external and internal positive and negative controls are appropriate for the histochemical, immunohistochemical and immunofluorescence stain(s) in this case (if any), except where stated explicitly. The performance characteristics of the stain(s) cited in this report were developed and its performance characteristic determined by the Dermatopathology Laboratory at [facility], directed by Dr. Jackelyn Wen. These tests need not be, and therefore are not, approved by the [place] Food and Drug Administration. The tests are used for clinical purposes. Billing Codes Specimen Charges Stain Charges 49901 1 97671 1 12:28 PM CDT DERMATOPATHOLOGY LABORATORY Embedded Images 12:28 PM CDT DERMATOPATHOLOGY LABORATORY Pathology/Cytolog y TISSUE SPECIMEN FROM SKIN / Unknown 09/10/2022 09/12/2022 2:10 PM CDT Virginia Serna PA-C LAB - PATHOLOGY/CYTOLOGY [facility] Final Result DERMATOPATHOLOGY LABORATORY [facility] - Department of Dermatology [facility] Special[facility] Medicine [address] [place] [address], [address] [phone] documented in this encounter Visit Diagnoses Diagnosis Neoplasm of uncertain behavior of skin documented in this encounter Care Teams Hand Frame Surgical Elastic Knitter Relationship Specialty Start Date End Date Víctor Mathews MD [address] [place] [address] PCP - General Family Medicine 07/09/19 documented as of this encounter
== END 2024-10-06 15:24 | disposition home or self-care (01) ==
LOC: ANHIMG 15:25 → ANHFOHIMG 15:26
PROVIDERS: PCP Family Medicine; Visit Provider Internal Medicine Hematology & Oncology
DX: Z12.31 Encounter for screening mammogram for malignant neoplasm of breast (principal)
CPT/HCPCS: 77063; 77067

== ENCOUNTER 2024-11-09 00:36 | Day surgery (SDC) | payer MEDICARE, OTHER, SELFPAY ==
--- OUTSIDE RECORDS SUMMARY | 2007-10-17 05:06 | XMS_ITS | Continuity of Care Document ---
Author Organization [facility] [place] [address] [place] [address] [place] [address] Phone Care Team Providers Care Advertising Vice President Name Role Phone MichaelTiago mcnamara Unavailable Unavailable Procedures Procedure Date Eye Exam, New Patient Advance Directives Directive Yes / No Effective Date File Name No Information Encounters Encounter Description Practice Location Reason(s) For Visit Diagnoses Date Provider Providers Copied on Encounter [facility], [address] [place] [address] [address], [place], [place], [id number], [place] tel:[phone] [facility] [place] No Information [phone] Amadeo Tiago. [address] [facility] [address], [place], [address], [place]. tel:[phone] Family History Family Member Type Diagnosis Age At Onset No Information Payers Payer name Insurance type Covered republican ID Authoriza tion(s) [facility] Out Of State [id number] Social History Type Description Quantity Date Captured Comments Sex Female Smoking Status No Information Chief Complaint And Reason For Visit No Information Reason For Referral Reason For Referral No Information History Of Present Illness Encounter Date Complaint History Of Prese nt Illness No Information Functional Status Date Functional Assessmen t No Information Instructions Date Instruction Additional Infor mation No Information Assessments Type Assessment Date No Information Patient Care Teams Name Effective Dates (start - stop) Status Members No Information
[2024-10-23 12:29] VITALS: BMI 36.6
--- OUTSIDE RECORDS SUMMARY | 2024-11-09 00:39 | XMS_ITS | Clinical Summary ---
Author Organization [facility] Address [address] [place] [address] Care Team Providers Care Drink Box Mechanic Name Role Phone Unavailable Primary Care Provider [...] COVID-19 Vaccine ( - 2023-2 5 season) 2024 RSV Immunization or 60+ Years (1 - [...]
--- OUTSIDE RECORDS SUMMARY | 2024-11-09 00:39 | XMS_ITS | Clinical Summary ---
Author Organization [facility] Address [address] [facility] [place] [address] Care Team Providers Care Help Desk Support Name Role Phone Víctor Mathews MD Primary Care Provider [phone] Allergies No known active allergies Medications carvedilol [...] 07/18/2018 08/05/2018 Breast signs and symptoms 07/18/2018 Encounters Date Type Department Care Team Description 11/03/2024 External Device Data ST[facility] ABSTRACTION Provider, Abstract 10/27/2024 External Device Data ST[facility] ABSTRACTION Provider, Abstract 10/20/2024 External Device Data ST[facility] ABSTRACTION Provider, Abstract 10/13/2024 11:45 AM CDT Office Visit [facility] Oncology and Hematology [facility] [address] [place] [address] Reji Peter MD Visit for screening mammogram (Primary Dx) 10/07/2024 Orders Only [facility] Oncology and [facility] [address] [place] [address] Reji Peter MD from Last 3 Months Social History Tobacco Use Types Packs/Day Years [...] Sign Reading Time Taken Comments Blood Pressure 124/72 10/13/2024 11:50 AM CDT Pulse 65 10/13/2024 11:50 AM CDT Temperature 36.6 C (97.9 F) 10/13/2024 11:50 AM CDT Respiratory Rate 13 10/13/2024 11:50 AM CDT Oxygen Saturation 96% 10/13/2024 11:50 AM CDT Inhaled Oxygen Concentration - - Weight 98.4 kg (217 lb) 10/13/2024 11:50 AM CDT Height 160 cm (5' 3) 10/20/2021 1:15 PM CDT Body Mass Index 38.44 10/20/2021 1:15 PM CDT Plan of Treatment Upcoming Encounters Date Type Department Care Team (Late st Contact Info) Description 10/18/2025 1:00 PM CDT Office Visit [facility] Oncology and Hematology - [place] [address] [facility] [address] [place] [address] Reji Peter MD [address] [facility] [address] [place] [address] Health Maintenance Due Date Last Done Comments Pre-Diabetes and Diabetes Screening 1955 DTAP/TDAP/TD VACCINES (1 - Tdap) 1976 COLORECTAL SCREENING 2002 Colorectal Cancer Screening 2002 FIT-DNA Q 3 years 2002 FIT/FOBT Q 1 year 2002 Flex Sig/CT Colonography Q 5 years 2002 RSV VACCINE (60+ or ) (1 - Risk 60-74 years 1-dose series) 2017 PNEUMOCOCCAL VACCINE 50+ YEA RS (2 of 2 - PCV) 11/20/2018 11/20/2017 OSTEOPOROSIS SCREENING 2022 INFLUENZA VACCINE (#1) 2024 3, 10/28/2020, 04/14/2019, Additional history exists BREAST CANCER SCREENING 10/06/2025 10/07/19 25, 07/15/2020, 07/09/2019, Additional history exists ZOSTER VACCINE Completed 01/03/2020, 11/03/2019 Procedures Procedure Name Priority Date/Time Associated Diagnosis Comments MAMMOGRAM REPORT Routine 10/06/2024 11:3 9 AM CDT from Last 3 Months Results * MAMMOGRAM REPORT (10/06/2024 11:39 AM CDT) us Reji Peter MD MAMMO ORDERABLES Final Result from Last 3 Months Insurance [id number] OPTIONS PPO [id number] OPTIONS PPO [id number] [place] [address] Care Teams Help Desk Support Relationship Specialty Start Date End Date Víctor Mathews MD [address] [place] [phone] PCP - General Family Practice 04/14/19
--- OUTSIDE RECORDS SUMMARY | 2024-11-09 00:39 | XMS_ITS | Encounter Summary ---
Author Organization [facility] Address [address] [facility] [place] [address] Care Team Providers Care Carpet Layer Name Role Phone Víctor Mathews MD Primary Care Provider [phone] Encounter Details Date Type Department Care Team (Late st Contact Info) Description 09/11/2022 Lab Requisition [facility] - DermPath Lab [address] [facility], [place] [phone] Virignia Serna PA-C [address] [place] [address] Neoplasm of uncertain behavior of skin Social History Tobacco Use Types Packs/Day Years Used Date Smoking Tobacco: Former Cigarettes Q uit: 1986 Smokeless Tobacco: Never Comments Unknown Sex and Gender Information Value Date Recorded Sex Assigned at Not on file 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 Gender Identity Not on file Sexual Orientation Not on file documented as of this encounter Plan of Treatment Not on file documented as of this encounter Procedures Procedure Name Priority Date/Time Associated Diagnosis Comments DERMATOPATHOLOGY Routine 09/10/2022 12:0 0 AM CDT Neoplasm of uncertain behavior of skin documented in this encounter Results * DERMATOPATHOLOGY (09/10/2022 12:00 AM CDT) Case Report Dermatopathology Report Case: [id number] Authorizing Provider: Virginia Serna PA-C Collected: 09/10/2022 12:00 AM Ordering Location: [facility] DermPath Lab Received: 09/12/2022 02:10 PM Pathologist: [...] of a shave biopsy measuring 3x1x1, 3x1x1, 92j56e7 mm. Jar 0. 12:28 PM CDT DERMATOPATHOLOGY [...] characteristic determined by the Dermatopathology Laboratory at [facility], directed by Dr. Jackelyn Wen. These tests need not be, and therefore are not, approved by the [place] Food and Drug Administration. The tests are used for clinical purposes. Billing Codes Specimen Charges Stain Charges 76812 1 08505 1 12:28 PM CDT DERMATOPATHOLOGY LABORATORY Embedded Images 12:28 PM CDT DERMATOPATHOLOGY LABORATORY Pathology/Cytolog y TISSUE SPECIMEN FROM SKIN / Unknown 09/10/2022 09/12/2022 2:10 PM CDT Virginia Serna PA-C LAB - PATHOLOGY/CYTOLOGY MACHELLE BRANH[facility] Final Result DERMATOPATHOLOGY LABORATORY [facility] - Department of Dermatology [facility] Specialized Medicine [address] [place] [address], [address] [phone] documented in this encounter Visit Diagnoses Diagnosis Neoplasm of uncertain behavior of skin documented in this encounter Care Teams Carpet Layer Relationship Specialty Start Date End Date Víctor Mathews MD [address] [place] [address] PCP - General Family Medicine 07/09/19 documented as of this encounter
--- OUTSIDE RECORDS SUMMARY | 2024-11-09 00:39 | XMS_ITS | Encounter Summary ---
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, including shoulder Social History Tobacco Use Types Packs/Day Years Used Date Smoking Tobacco: Former Cigarettes Q uit: 1986 Smokeless Tobacco: Never Comments Unknown Sex and Gender Information Value Date Recorded Sex Assigned at Not on file 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 The epidermal surface is unremarkable. The [...] characteristic determined by the Dermatopathology Laboratory at [facility], directed by Dr. Jackelyn Wen. These tests need not be, and therefore are not, approved by the [place] Food and Drug Administration. The tests are used for clinical purposes. 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
--- OUTSIDE RECORDS SUMMARY | 2024-11-09 00:39 | XMS_ITS | Clinical Summary ---
Author Organization [facility] Address [address] [facility] [place] [address] Care Team Providers Care Dry Room Operator Name Role Phone Víctor Mathews MD Primary Care Provider [phone] [facility],non-owned Affiliates and Associated Physician Practices is amultiple site organization consisting of ambulatory clinics and hospital sitesin [place], [place], [place] and [place]. This disclosure is being madepursuant to the Care Everywhere program and may not contain all information available regarding this patient. Last updated 17.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 No suspicious solid or cystic mass in either breast. No right or left axillary lymphadenopathy. Loretta Ayala DO MAMMO ORDERABLES Final Resu lt from Last 3 Months or Most Recently Relevant to Health Maintenance Insurance [facility] [id number] [place] [address] * Guarantor: TRINY ALARCON Account Type Relation to Patient Date of Phone Billing Address Personal/Family [address] [place] [address] [place] [address] SELF PAY NO INSURANCE Member Subscriber Plan / Payer (Ef fective for All Dates) Name:Triny Alarcon Member ID:Not on file Relation to Subscriber:Not on file Name:TRINY ALARCON Subscriber ID:Not on file Address: [address] [place], [place] [address] Payer ID:Not on file Group ID:Not on file Type:Self Pay Address: [place], [place] * Guarantor: TRINY ALARCON Account Type Relation to Patient Date of Phone Billing Address Personal/Family [address] [place] [id number] [employer] SELF PAY NO INSURANCE Member Subscriber Plan / Payer (Ef fective for All Dates) Name:Triny Alarcon Member ID:Not on file Relation to Subscriber:Not on file Name:TRINY ALARCON Subscriber ID:Not on file Address: [address] [place] [address] Payer ID:Not on file Group ID:Not on file Type:Self Pay Address: [place], [place] * Guarantor: TRINY ALARCON Account Type Relation to Patient Date of Phone Billing Address Personal/Family [address] [place] [id number] [employer] SELF PAY NO INSURANCE Member Subscriber Plan / Payer (Ef fective for All Dates) Name:Triny Alarcon Member ID:Not on file Relation to Subscriber:Not on file Name:TRINY ALARCON Subscriber ID:Not on file Address: [address] [place] [address] Payer ID:Not on file Group ID:Not on file Type:Self Pay Address: [place], [place] Care Teams Dry Room Operator Relationship Specialty Start Date End Date Víctor Mathews MD [address] [place] [address] PCP - General Family Medicine 07/09/19
[2024-11-09 07:17] VITALS: BP 150/77; PULSE 71; RESP 16; TEMP 35.8; O2SAT 98
[2024-11-09] MEDS: LACTATED RINGERS 1,000 ML 150 ML IV CONT (07:31)
--- NOTE | 2024-11-09 08:11 | WPDANESEPPF ---
Anes - Initial Pre Proc Eval Procedure: Operation Date: 11/09/24 08:30 Proposed Procedures p Screening Colonoscopy - Emerson Bennett DO Date/Time: 11/09/24 08:11 Surgeon: Emerson Bennett DO Pre Op Diagnosis: Neoplasm screening Patient Data Age: 69 Gender: F Height: 1.57 m Weight: 98.6 kg Last Vital Signs Temp 96.4 F L 11/09/24 07:17 Pulse 71 11/09/24 07:17 Resp 16 11/09/24 07:17 BP 150/77 H 11/09/24 07:17 Pulse Ox 98 11/09/24 07:17 O2 Del Method Room Air 11/09/24 07:17 Allergies Allergy/AdvReac Type Severity Reaction Status Date / Time nickel Allergy Rash Verified 10/23/24 12:28 contact metal agent AdvReac SKIN Verified 10/23/24 12:28 IRRITATION Home Medications ?Medication ?Instructions ?Recorded ?Confirmed ?Type aspirin 81 mg tablet,delayed 81 mg PO DAILY 11/08/22 11/09/24 History release ([place] Aspirin) mupirocin 2 % topical ointment 1 applic topical HS 07/24/23 10/23/24 History lisinopril 20 mg tablet 20 mg PO DAILY #30 tabs 12/19/23 11/09/24 Rx metformin 500 mg tablet,extended 1,000 mg (2 x 500 mg) PO BID #120 12/19/23 10/23/24 Rx release 24 hr tabs ubrogepant 100 mg tablet (Ubrelvy) 100 mg PO ONCE PRN migraine #14 12/31/23 10/23/24 Rx tabs rimegepant 75 mg disintegrating 75 mg PO ONCE PRN migraine 01/14/24 10/23/24 Rx tablet (Nurtec ODT) headache #8 tabs celecoxib 200 mg capsule (Celebrex) 200 mg PO DAILY pain #90 caps 04/13/24 11/09/24 Rx duloxetine 60 mg capsule,delayed 60 mg PO DAILY #30 caps 07/02/24 11/09/24 Rx release topiramate 50 mg tablet 75 mg (1.5 x 50 mg) PO BID #90 tabs 07/02/24 11/09/24 Rx magnesium oxide 400 mg (241.3 mg 400 mg PO BID 08/13/24 10/23/24 History magnesium) tablet carvedilol 12.5 mg tablet 12.5 mg PO Q12H #60 tabs 09/17/24 11/09/24 Rx esomeprazole magnesium 40 mg 40 mg PO DAILY #30 caps 10/26/24 11/09/24 Rx capsule,delayed release (Nexium) Laboratory Tests 11/09/24 07:30 POC Capillary Glucose 115 H mg/dl (65-105) Patient hx anesthesia problems: none Family hx anesthesia problems: none Results Review: All pre-operative results and documents have been reviewed as part of the pre-operative evaluation. [facility] Past Medical History Medical History Constipation Controlled diabetes mellitus without complication, without long-term current use of insulin (~12/05/23) glucose 102 with hemoglobin A1c 5.6 on 04/06/2021. glucose 103 with hemoglobin A1c 5.3 on 04/06/2022. Fasting glucose 121 with hemoglobin A1c 5.8 on 10/26/2022. fasting glucose 137 with hemoglobin A1c 6.3 and GFR 73 with microalbumin ratio of 4 on 12/05/2023. glucose 109, hemoglobin A1c 5.8, GFR 76 on 08/20/2024. Ulnar neuropathy at elbow of right upper extremity (~2023) Bilateral carpal tunnel syndrome (~2023) Right carpal tunnel release 08/07/2023. Paresthesia of both hands EMG and nerve conduction study on 05/21/2023 with bilateral carpal tunnel syndrome and moderate to severe right ulnar neuropathy. Chronic pain in right shoulder (~08/2022) X-ray of the right shoulder on 11/10/2022 reveals mild arthritis with no fracture. Breast cancer screening by mammogram normal mammogram 10/19/2022. Normal mammogram 10/06/2024. Edema of both ankles Left wrist pain Left hand pain Cervical radiculitis X-ray of the cervical spine on 05/16/2023 reveals mild Degenerative changes. Cervicalgia BMI 39.0-39.9,adult Oral candidiasis Fever blister Chronic pain of both ankles Left acute otitis media Acute sinusitis CT of the paranasal sinuses on 10/04/2022 was unremarkable COVID-19 (12/16/21) tested positive 12/17/2021. Fully vaccinated. Chronic depression Chronic anxiety Obesity (BMI 30-39.9) BMI 36.0-36.9,adult Morbid obesity with BMI of 40.0-44.9, adult Shortness of breath Fluid overload Chronic deep vein thrombosis (DVT) Hypoxia Pulmonary hypertension (12/10/20) moderate pulmonary hypertension on echocardiogram 12/10/2020 with ejection fraction 55-60% with grade 1 diastolic dysfunction and mild mitral valve regurgitation and moderate tricuspid valve regurgitation Multiple thyroid nodules (12/09/20) multi nodular goiter ultrasound thyroid 12/12/2020 with recheck in 1 year. TSH 2.42 on 08/20/2024. DVT (deep venous thrombosis) (12/09/20) DVT left lower leg with chronic DVT present on Doppler 04/10/2021 left popliteal, gastrocnemius and peroneal vein Bilateral pulmonary embolism (12/09/20) Right knee DJD total knee replacement Elevated TSH repeat TSH normal at 1.93 with free T4 0.9 on 04/06/2021 Encounter for Postoperative Care Cellulitis Sting, hornet Hypertension Arthritis of right knee Knee effusion, right Acute medial meniscus tear of right knee Internal derangement of knee Body mass index (BMI) of 40.1 to 44.9 in adult Mixed hyperlipidemia total cholesterol 145, triglycerides 140, HDL 43 and LDL 78 on 10/21/2019. Total cholesterol 181, HDL 52, triglycerides 96, LDL 110 on 04/06/2022. Cholesterol 178, triglycerides 192, HDL 43, LDL 104 with ratio 4.1 on 10/26/2022. Cholesterol 187, triglycerides 212, HDL 41, LDL 113 with ratio 4.6 on 08/20/2024. Abnormal fasting glucose glucose 102 with hemoglobin A1c 5.6 on 04/06/2021. glucose 103 with hemoglobin A1c 5.3 on 04/06/2022. Fasting glucose 121 with hemoglobin A1c 5.8 on 10/26/2022. Acute non-recurrent maxillary sinusitis Right-sided thoracic back pain History of migraine headaches Dysuria Right flank pain Colon polyp, hyperplastic Abnormal breast tissue Chronic low back pain with right-sided sciatica GERD (gastroesophageal reflux disease) Seasonal allergic rhinitis Migraine without aura and without status migrainosus, not intractable ESR normal at 5 was CRP normal at 6.2 on 01/03/2024. MRI of the brain was normal on 02/03/2024. Essential (primary) hypertension Frozen shoulder (~2011) TMJ (dislocation of temporomandibular joint) (~1979) Surgical History Surgical History S/P total knee arthroplasty H/O breast biopsy H/O arthroscopy of right knee H/O colonoscopy with polypectomy History of shoulder surgery History of surgery TMJ surgery History of sinus surgery (~2004) History of bunionectomy (~1998) bilateral H/O knee surgery (~1979) Hx of cholecystectomy (~1999) H/O: hysterectomy (~1984) History of placement of ear tubes Hx of tonsillectomy Family History Family History Mother Cerebrovascular accident Dementia Father Diabetes mellitus Hypertension CHF (congestive heart failure) Grandparent Heart disease Grandparent Heart disease Grandparent Cerebrovascular accident Grandparent Automobile accident Other Arthritis Kidney disorder Social History Social History Social History: The patient has 1 child. She works for a [employer] company which is called [employer]. 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 Patient is a former smoker and quit many years ago. She lives with her Emerson who is her surrogate. They have 2 Kevin [facility] names carol and vadim Code status full code Smoking packs per day: 1 Smoking cigarettes per day: 20.0 Years smoked: 9 Smoking pack-years: 9.00 Smoking status: Former smoker Tobacco type: cigarettes Second hand tobacco smoke exposure: No Smoking end date: 02/18/82 Additional smoking assessment comments: PT DENIES ALL FORMS OF TOBACCO USE Alcohol intake: current Drinks per week: 1 Alcohol use details: 1-2 DRINKS/MONTH Substance use: never Substance use type: does not use Last use: 1982 Lack of Transportation: No Lack of Food: Never True Current Housing: I Have Housing Concerned About Future Housing: No Difficulty Paying Gas/Electric Bills: No Difficulty Paying for Meds: No Currently Unemployed: No Education: High School Diploma/GED Difficulty w/ Childcare or Family Care: No Living arrangements: with family Occupation/Education: occupation Additional occupation/education comments: [employer] Gender identity (if verbalized by the patient): Female Sexual Orientation (if Verbalized by the Patient): Straight or Heterosexual Spiritual care concerns: No Agree to blood products: Yes Anes - Eval Final PreProcedure Day of Procedure 11/09/24 08:11 Patient weight: obese Lungs: normal air movement Airway: Mallampati scale class II Neurological: alert and oriented Last oral intake: >/= 8 hours ASA classification: III Emergent: no Anesthetic plan: proceed Anesthesia type and monitoring: general GIVS and standard monitoring Results Review: All pre-operative results and documents have been reviewed as part of the pre-operative evaluation. HTN, DM, hx of migranes, BMI 39.8. Informed Consent: The patient's anesthetic plan and its attendant risks and benefits were discussed with the patient/family/POA. Questions were solicited and answers provided to the satisfaction of the patient/family/POA.
--- NOTE | 2024-11-09 08:21 | P.HP_ITS ---
H&P: HPI History of Present Illness Date/Time: 11/09/24 08:21 Chief Complaint: screening for colorectal cancer, history of colon polyps Narrative: this is a 69-year-old woman who presents for colonoscopy. Her last colonoscopy was about 5 years ago and polyps were removed at that time. She denies any family history of colon cancer. She denies hematochezia or melena. Review of Systems Review of Systems: All systems reviewed & are unremarkable except as noted in HPI and below Constitutional: Constitutional: Denies chills, Denies fever(s), Denies headache(s) and Denies weight loss Eyes: Eyes: Denies change in vision ENT: Denies dizziness, Denies headache(s), Denies neck mass and Denies throat swelling Cardiovascular: Cardiovascular: Denies chest pain, Denies lightheadedness and Denies dyspnea Respiratory: Respiratory: Denies cough, Denies dyspnea and Denies wheezing Gastrointestinal: Gastrointestinal: Denies abdominal pain, Denies change in bowel habits, Denies nausea and Denies vomiting Genitourinary: Genitourinary: Denies hematuria and Denies dysuria Musculoskeletal: Musculoskeletal: Reports as per HPI Integumentary/Breasts: Skin/Breast: Reports as per HPI Neurologic: Denies dizziness and Denies headache(s) Allergic/Immunologic: Allergic/Immunologic: Denies throat swelling and Denies wheezing [facility] Past Medical History Medical History Constipation Controlled diabetes mellitus without complication, without long-term current use of insulin (~12/05/23) glucose 102 with hemoglobin A1c 5.6 on 04/06/2021. glucose 103 with hemoglobin A1c 5.3 on 04/06/2022. Fasting glucose 121 with hemoglobin A1c 5.8 on 10/26/2022. fasting glucose 137 with hemoglobin A1c 6.3 and GFR 73 with microalbumin ratio of 4 on 12/05/2023. glucose 109, hemoglobin A1c 5.8, GFR 76 on 08/20/2024. Ulnar neuropathy at elbow of right upper extremity (~2023) Bilateral carpal tunnel syndrome (~2023) Right carpal tunnel release 08/07/2023. Paresthesia of both hands EMG and nerve conduction study on 05/21/2023 with bilateral carpal tunnel syndrome and moderate to severe right ulnar neuropathy. Chronic pain in right shoulder (~08/2022) X-ray of the right shoulder on 11/10/2022 reveals mild arthritis with no fracture. Breast cancer screening by mammogram normal mammogram 10/19/2022. Normal mammogram 10/06/2024. Edema of both ankles Left wrist pain Left hand pain Cervical radiculitis X-ray of the cervical spine on 05/16/2023 reveals mild Degenerative changes. Cervicalgia BMI 39.0-39.9,adult Oral candidiasis Fever blister Chronic pain of both ankles Left acute otitis media Acute sinusitis CT of the paranasal sinuses on 10/04/2022 was unremarkable COVID-19 (12/16/21) tested positive 12/17/2021. Fully vaccinated. Chronic depression Chronic anxiety Obesity (BMI 30-39.9) BMI 36.0-36.9,adult Morbid obesity with BMI of 40.0-44.9, adult Shortness of breath Fluid overload Chronic deep vein thrombosis (DVT) Hypoxia Pulmonary hypertension (12/10/20) moderate pulmonary hypertension on echocardiogram 12/10/2020 with ejection fraction 55-60% with grade 1 diastolic dysfunction and mild mitral valve regurgitation and moderate tricuspid valve regurgitation Multiple thyroid nodules (12/09/20) multi nodular goiter ultrasound thyroid 12/12/2020 with recheck in 1 year. TSH 2.42 on 08/20/2024. DVT (deep venous thrombosis) (12/09/20) DVT left lower leg with chronic DVT present on Doppler 04/10/2021 left popliteal, gastrocnemius and peroneal vein Bilateral pulmonary embolism (12/09/20) Right knee DJD total knee replacement Elevated TSH repeat TSH normal at 1.93 with free T4 0.9 on 04/06/2021 Encounter for Postoperative Care Cellulitis Sting, hornet Hypertension Arthritis of right knee Knee effusion, right Acute medial meniscus tear of right knee Internal derangement of knee Body mass index (BMI) of 40.1 to 44.9 in adult Mixed hyperlipidemia total cholesterol 145, triglycerides 140, HDL 43 and LDL 78 on 10/21/2019. Total cholesterol 181, HDL 52, triglycerides 96, LDL 110 on 04/06/2022. Cholesterol 178, triglycerides 192, HDL 43, LDL 104 with ratio 4.1 on 10/26/2022. Cholesterol 187, triglycerides 212, HDL 41, LDL 113 with ratio 4.6 on 08/20/2024. Abnormal fasting glucose glucose 102 with hemoglobin A1c 5.6 on 04/06/2021. glucose 103 with hemoglobin A1c 5.3 on 04/06/2022. Fasting glucose 121 with hemoglobin A1c 5.8 on 10/26/2022. Acute non-recurrent maxillary sinusitis Right-sided thoracic back pain History of migraine headaches Dysuria Right flank pain Colon polyp, hyperplastic Abnormal breast tissue Chronic low back pain with right-sided sciatica GERD (gastroesophageal reflux disease) Seasonal allergic rhinitis Migraine without aura and without status migrainosus, not intractable ESR normal at 5 was CRP normal at 6.2 on 01/03/2024. MRI of the brain was normal on 02/03/2024. Essential (primary) hypertension Frozen shoulder (~2011) TMJ (dislocation of temporomandibular joint) (~1979) Surgical History Surgical History S/P total knee arthroplasty H/O breast biopsy H/O arthroscopy of right knee H/O colonoscopy with polypectomy History of shoulder surgery History of surgery TMJ surgery History of sinus surgery (~2004) History of bunionectomy (~1998) bilateral H/O knee surgery (~1979) Hx of cholecystectomy (~1999) H/O: hysterectomy (~1984) History of placement of ear tubes Hx of tonsillectomy Family History Family History Mother Cerebrovascular accident Dementia Father Diabetes mellitus Hypertension CHF (congestive heart failure) Grandparent Heart disease Grandparent Heart disease Grandparent Cerebrovascular accident Grandparent Automobile accident Other Arthritis Kidney disorder Social History Social History Social History: The patient has 1 child. 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 She lives with her Emerson who is her surrogate. They have 2 Kevin juan [place] names carol and vadim Code status full code Smoking packs per day: 1 Smoking cigarettes per day: 20.0 Years smoked: 9 Smoking pack-years: 9.00 Smoking status: Former smoker Tobacco type: cigarettes Second hand tobacco smoke exposure: No Smoking end date: 02/18/82 Additional smoking assessment comments: PT DENIES ALL FORMS OF TOBACCO USE Alcohol intake: current Drinks per week: 1 Alcohol use details: 1-2 DRINKS/MONTH Substance use: never Substance use type: does not use Last use: 1982 Lack of Transportation: No Lack of Food: Never True Current Housing: I Have Housing Concerned About Future Housing: No Difficulty Paying Gas/Electric Bills: No Difficulty Paying for Meds: No Currently Unemployed: No Education: High School Diploma/GED Difficulty w/ Childcare or Family Care: No Living arrangements: with family Occupation/Education: occupation Additional occupation/education comments: [employer] Gender identity (if verbalized by the patient): Female Sexual Orientation (if Verbalized by the Patient): Straight or Heterosexual Spiritual care concerns: No Agree to blood products: Yes Meds Home Medications and Allergies Home Medications ?Medication ?Instructions ?Recorded ?Confirmed ?Type aspirin 81 mg tablet,delayed 81 mg PO DAILY 11/08/22 0 11/09/24 History release ([place] Aspirin) mupirocin 2 % topical ointment 1 applic topical HS 07/1110/23/24 History lisinopril 20 mg tablet 20 mg PO DAILY #30 tabs 11/2011/09/24 Rx metformin 500 mg tablet,extended 1,000 mg (2 x 500 mg) PO BID #120 12/19/23 10/23/24 Rx release 24 hr tabs ubrogepant 100 mg tablet (Ubrelvy) 100 mg PO ONCE PRN migraine #14 12/31/23 10/23/24 Rx tabs rimegepant 75 mg disintegrating 75 mg PO ONCE PRN migr nolvia 01/14/24 10/23/24 Rx tablet (Nurtec ODT) headache #8 tabs celecoxib 200 mg capsule (Celebrex) 200 mg PO DAILY pa in #90 caps 04/13/24 11/09/24 Rx duloxetine 60 mg capsule,delayed 60 mg PO DAILY #30 ca ps 07/02/24 11/09/24 Rx release topiramate 50 mg tablet 75 mg (1.5 x 50 mg) PO BID # 90 tabs 07/02/24 11/09/24 Rx magnesium oxide 400 mg (241.3 mg 400 mg PO BID 08/13/2 5 10/23/24 History magnesium) tablet carvedilol 12.5 mg tablet 12.5 mg PO Q12H #60 tabs 11/09/24 Rx esomeprazole magnesium 40 mg 40 mg PO DAILY #30 caps 0 10/26/24 11/09/24 Rx capsule,delayed release (Nexium) Allergies Allergy/AdvReac Type Severity Reaction Status Date / Time nickel Allergy Rash Verified 10/23/24 12:28 contact metal agent AdvReac SKIN Verified 10/23/24 12:28 IRRITATION Vital Signs Vital Signs - 24 hr 11/09/24 07:17 Temperature 96.4 F L Pulse Rate 71 Respiratory Rate 16 Blood Pressure 150/77 H Pulse Oximetry 98 Oxygen Delivery Room Air Exam Const: General: no acute distress and alert Orientation/consciousness: patient oriented x3 HENMT: Head: normocephalic and atraumatic Ears: hearing grossly normal bilaterally Face/Nose/Sinus: Normal nares present Mouth: Yes Normal oral and palatal mucosa present Eyes: Periorbital: periorbital findings normal Sclera: sclerae normal EOM: EOMs intact bilaterally Neck: Neck: normal visual inspection, no lymphadenopathy and trachea midline Chest: Chest palpation & inspection: normal inspection of the chest Resp: Effort & Inspection: normal respiratory effort Auscultation: clear to auscultation bilaterally Cardio: Jugular venous distension: no JVD Rate: regular rate Rhythm: regular rhythm Heart sounds: S1 normal heart sound present and S2 normal heart sound present Peripheral pulses: Peripheral pulses 2+ throughout GI: Inspection: normal to inspection GI Palp: Yes Soft to palpation, No Tenderness to palpation present (GI), No Guarding due to palpation present (GI) and No Rebound tenderness present Percussion: Yes normal to percussion Auscultation: normal bowel sounds : General: Yes no CVA tenderness Back/Spine/Pelvis: Back: no CVA tenderness Neuro: General: patient oriented x3, no focal motor deficits and CN's II-XI intact bilaterally Cognition (Neuro): normal cognition Speech: normal speech Motor exam (neuro): 5/5 motor strength present throughout Extrem: General: capillary refill normal and no clubbing, cyanosis or edema Assessment and Plan Assessment and plan (1) Hx of colonic polyps: Code(s): Z86.0100 - Personal history of colon polyps, unspecified Status: Acute Assessment and Plan: I have recommended colonoscopy. I have discussed the procedure, risks, benefits, and alternatives. Questions were answered. Patient is agreeable to proceed.
[2024-11-09 09:15] VITALS: BP 128/67; PULSE 74; RESP 25; O2SAT 100
[2024-11-09 09:25] VITALS: BP 129/65; PULSE 65; RESP 24; O2SAT 99
[2024-11-09 09:35] VITALS: BP 136/70; PULSE 63; RESP 24; O2SAT 99
== END 2024-11-09 09:45 | disposition home or self-care (01) ==
PROVIDERS: PCP Family Medicine; Visit Provider Surgery
PROC: 0DJD8ZZ Inspection of Lower Intestinal Tract, Via Natural or Artificial Opening Endoscopic (ICD-10-PCS; CPT 45378; principal; 2024-11-09 08:30)
DX: Z12.11 Encounter for screening for malignant neoplasm of colon (principal); K57.30 Diverticulosis of large intestine without perforation or abscess without bleeding; I10 Essential (primary) hypertension; E78.2 Mixed hyperlipidemia; E11.9 Type 2 diabetes mellitus without complications; K21.9 Gastro-esophageal reflux disease without esophagitis; M17.11 Unilateral primary osteoarthritis, right knee; R09.02 Hypoxemia; F32.A Depression, unspecified; F41.9 Anxiety disorder, unspecified; I27.20 Pulmonary hypertension, unspecified; G89.29 Other chronic pain; M25.511 Pain in right shoulder; M25.572 Pain in left ankle and joints of left foot; M25.571 Pain in right ankle and joints of right foot; M54.41 Lumbago with sciatica, right side; M26.609 Unspecified temporomandibular joint disorder, unspecified side; E66.9 Obesity, unspecified; Z68.39 Body mass index [BMI] 39.0-39.9, adult; Z79.82 Long term (current) use of aspirin; Z79.84 Long term (current) use of oral hypoglycemic drugs; Z79.1 Long term (current) use of non-steroidal anti-inflammatories (NSAID); Z98.890 Other specified postprocedural states; Z90.49 Acquired absence of other specified parts of digestive tract; Z87.891 Personal history of nicotine dependence; Z86.0100 Personal history of colon polyps, unspecified; Z86.711 Personal history of pulmonary embolism; Z86.718 Personal history of other venous thrombosis and embolism; Z82.49 Family history of ischemic heart disease and other diseases of the circulatory system
CPT/HCPCS: G0105; 82948; J2003; J2704; J7120

== ENCOUNTER 2024-11-26 09:53 | Outpatient (CLI) | payer MEDICARE, OTHER, SELFPAY ==
--- NOTE | ~2024-11-26 | MR_ITS ---
EXAMINATION: MR wrist RT wo/w con DATE: 11/26/2024 11:00 INDICATION: Right hand paresthesias of skin. Assess for ganglion cyst at the Guyon's canal. TECHNIQUE: Magnetic resonance imaging (MRI) of the right wrist was performed without intravenous contrast. Sequences performed include axial PD-weighted FSE and PD-weighted FS FSE, coronal PD-weighted FS FSE and T1-weighted SE, and sagittal PD-weighted FS FSE and PD-weighted FSE. COMPARISON: None FINDINGS: Evaluation mildly limited by some motion artifact on a few sequences most prominent on the coronal and fat saturated sequences. This mildly limits evaluation. Intrinsic ligaments: The scapholunate and lunotriquetral ligaments appear grossly intact although evaluation is limited by motion artifact. Triangular fibrocartilage complex (TFCC): There is a partial tear at the ulnar side of the central fiber cartilaginous disc of the triangular fibrocartilage complex. The radial, foveal and styloid attachments as well as the dorsal and volar radioulnar ligaments are normal. The ulnar collateral ligament, ulnotriquetral ligament and meniscal homologue are normal. The extensor carpi ulnaris tendon sheath is normal. Extensor wrist: Extensor tendons of the wrist are normal. No tenosynovitis. Flexor wrist: The flexor tendons of the wrist are normal. There is bowing of the flexor retinaculum with the deep margin extending 4 mm beyond the line connecting the hamate and the trapezium. There is flattening of the of the median nerve at the level of the carpal tunnel with thickening of the nerve immediately proximal to the carpal tunnel with the area measuring approximately 18 sq mm proximal to the carpal tunnel and 13 mm at the level of the carpal tunnel. Guyon's canal: Guyon's canal including the ulnar nerve and artery are normal. No ganglion cyst or other impinging lesions. Bones/other: Bone alignment is normal. No fracture or osteonecrosis. Polyarticular osteoarthritis, moderate severity at the first carpal metacarpal and triscaphe joints and mild at the midcarpal, wrist, distal radioulnar and remaining carpal metacarpal joints. Likely degenerative subarticular edema-like signal changes along the proximal articular surface of the scaphoid and lunate and at the proximal and distal poles of the capitate. IMPRESSION: 1. Constellation of findings including increased volar bowing of the flexor retinaculum and thickening of the median nerve proximal to the carpal tunnel and flattening of the nerve within the tunnel suggestive of carpal tunnel syndrome. 2. Guyon's canal and the ulnar nerve are unremarkable no evident ganglion cyst or other impinging lesions. 3. Partial tear at the ulnar side of the central fibrocartilaginous disc of the triangular fibrocartilage complex. 4. Mild to moderate polyarticular osteoarthritis at the right wrist and carpus most prominent at the triscaphe and first carpal metacarpal joints. Reviewed, dictated and finalized at location A. IMPRESSION: 1. Constellation of findings including increased volar bowing of the flexor ret inaculum and thickening of the median nerve proximal to the carpal tunnel and f lattening of the nerve within the tunnel suggestive of carpal tunnel syndrome. 2. Guyon's canal and the ulnar nerve are unremarkable no evident ganglion cyst or other impinging lesions. 3. Partial tear at the ulnar side of the central fibrocartilaginous disc of the triangular fibrocartilage complex. 4. Mild to moderate polyarticular osteoarthritis at the right wrist and carpus most prominent at the triscaphe and first carpal metacarpal joints.
== END 2024-11-26 09:54 | disposition home or self-care (01) ==
PROVIDERS: PCP Family Medicine; Visit Provider Plastic Surgery
DX: R20.2 Paresthesia of skin (principal); M67.841 Other specified disorders of synovium, right hand; G56.10 Other lesions of median nerve, unspecified upper limb; S63.591A Other specified sprain of right wrist, initial encounter; M24.232 Disorder of ligament, left wrist; M25.531 Pain in right wrist; M19.031 Primary osteoarthritis, right wrist
CPT/HCPCS: 73223; A9577

== ENCOUNTER 2024-12-09 08:54 | Outpatient (CLI) | payer MEDICARE, OTHER, SELFPAY ==
--- OUTSIDE RECORDS SUMMARY | 2024-12-09 09:34 | XMS_ITS | Clinical Summary ---
Author Organization [facility] Address [address] [facility] [place] [address] Care Team Providers Care Handle Rounder Operator Name Role Phone Víctor Mathews MD Primary Care Provider [phone] Allergies No known active allergies Medications carvedilol [...] Encounters Date Type Department Care Team Description 12/08/2024 External Device Data ST[facility] ABSTRACTION Provider, Abstract 11/03/2024 External Device Data STL ABSTRACTION Provider, Abstract 10/27/2024 External Device Data STL ABSTRACTION Provider, Abstract 10/20/2024 External Device Data STL ABSTRACTION Provider, Abstract 10/13/2024 11:45 AM CDT Office Visit [facility] and Hematology [facility] [address] [place] [address] Reji Peter MD Visit for screening mammogram (Primary Dx) 10/07/2024 Orders Only [facility] and [facility] [address] [place] [address] Reji Peter MD from Last 3 Months [...] Description 10/18/2025 1:00 PM CDT Office Visit [facility] - [place] [address] [facility] [address] [place] [address] Reji Peter MD [address] [facility] [address] [place] [address] Health Maintenance Due Date Last Done Comments Pre-Diabetes and Diabetes Screening 1957 DTAP/TDAP/TD VACCINES (1 - Tdap) 1976 COLORECTAL SCREENING 2002 Colorectal Cancer Screening 2002 FIT-DNA Q 3 years 2002 FIT/FOBT Q 1 year 2002 Flex Sig/CT Colonography Q 5 years 2002 RSV VACCINE (60+ or ) (1 - Risk 50-74 years 1-dose series) 07/17/2007 PNEUMOCOCCAL VACCINE 50+ YEA RS (2 of 2 - PCV) 11/20/2018 11/20/2017 OSTEOPOROSIS SCREENING 2022 INFLUENZA VACCINE (#1) 2024 3, 10/28/2020, 04/14/2019, Additional history exists BREAST CANCER SCREENING 10/06/2025 10/07/19, 07/15/2020, 07/09/2019, Additional history exists ZOSTER VACCINE Completed 01/03/2020, 11/03/2019 Procedures Procedure Name Priority Date/Time Associated Diagnosis Comments MAMMOGRAM REPORT Routine 10/06/2024 11:3 9 AM CDT from Last 3 Months Results * MAMMOGRAM REPORT (10/06/2024 11:39 AM CDT) Reji Peter MD MAMMO ORDERABLES Final Result from Last 3 Months Insurance [facility] OPTIONS PPO [id number] OPTIONS PPO [id number] MEDICARE [address] A [address] B [facility] [address] Care Teams Handle Rounder Operator Relationship Specialty Start Date End Date Víctor Mathews MD [facility] [place] [address] PCP - General Family Practice 04/14/19
--- OUTSIDE RECORDS SUMMARY | 2024-12-09 09:34 | XMS_ITS | Encounter Summary ---
Author Organization [facility] Address [address] [place] [address] Care Team Providers Care Sole Painter Name Role Phone Víctor Mathews MD Primary Care Provider [phone] Encounter Details Date Type Department Care Team (Late st Contact Info) Description 09/11/2022 Lab Requisition [facility] - DermPath Lab [address] [facility], [place] [address] Virginia Serna PA-C [address] [place] [address] Neoplasm of uncertain behavior of skin Social History Tobacco Use Types Packs/Day Years Used Date Smoking Tobacco: Former Cigarettes Q uit: 1986 Smokeless Tobacco: Never Comments Unknown Sex and Gender Information Value Date Recorded Sex Assigned at Not on file Legal Sex 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 Gender Identity Not on file Sexual Orientation Not on file documented as of this encounter Plan of Treatment Not on file documented as of this encounter Procedures Procedure Name Priority Date/Time Associated Diagnosis Comments DERMATOPATHOLOGY Routine 09/10/2022 12:0 0 AM CDT Neoplasm of uncertain behavior of skin documented in this encounter Results * DERMATOPATHOLOGY (09/10/2022 12:00 AM CDT) Case Report Dermatopathology Report Case: [id number] Authorizing Provider: Virginia Serna PA-C Collected: 09/10/2022 12:00 AM Ordering Location: [facility] DermPath Lab Received: 09/12/2022 02:10 PM Pathologist: [...] of a shave biopsy measuring 3x1x1, 3x1x1, 31r56w7 mm. Jar 0. 12:28 PM CDT DERMATOPATHOLOGY [...] characteristic determined by the Dermatopathology Laboratory at [facility], directed by Dr. Jackelyn Wen. These tests need not be, and therefore are not, approved by the [place] Food and Drug Administration. The tests are used for clinical purposes. Billing Codes Specimen Charges Stain Charges 65687 1 00602 1 12:28 PM CDT DERMATOPATHOLOGY LABORATORY Embedded Images 12:28 PM CDT DERMATOPATHOLOGY LABORATORY Pathology/Cytolog y TISSUE SPECIMEN FROM SKIN / Unknown 09/10/2022 09/12/2022 2:10 PM CDT Virginia Serna PA-C LAB - PATHOLOGY/CYTOLOGY MACHELLE BRANHAM Final Result DERMATOPATHOLOGY LABORATORY [facility] - Department of Dermatology [facility] Specialized Medicine [address] [place] [address], [address] [phone] documented in this encounter Visit Diagnoses Diagnosis Neoplasm of uncertain behavior of skin documented in this encounter Care Teams Sole Painter Relationship Specialty Start Date End Date Víctor Mathews MD [address] [place] [address] PCP - General Family Medicine 07/09/19 documented as of this encounter
--- OUTSIDE RECORDS SUMMARY | 2024-12-09 09:34 | XMS_ITS | Clinical Summary ---
Author Organization [facility] Address [address] [place] [address] Care Team Providers Care Radio Despatcher Name Role Phone Unavailable Primary Care Provider [...] Vaccine ( - 2023-2 5 season) 2024 Influenza Adult (#1) 2024 RSV Immunization or 60+ Years (1 - 1-dose 75+ series) 2032 Hepatitis A Vaccines Aged Out No long er eligible based on patient's age to complete this topic Meningococcal B Vaccine Aged Out No l onger eligible based on patient's age to complete this topic Meningococcal Vaccine Aged Out No tobin nahum eligible based on patient's age to complete this topic RSV Immunizations Under 20 Months Aged Out No longer eligible based on patient's age to complete this topic
--- OUTSIDE RECORDS SUMMARY | 2024-12-09 09:34 | XMS_ITS | Encounter Summary ---
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, including shoulder Social History Tobacco Use Types Packs/Day Years Used Date Smoking Tobacco: Former Cigarettes Q uit: 1986 Smokeless Tobacco: Never Comments Unknown Sex and Gender Information Value Date Recorded Sex Assigned at Not on file 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 The epidermal surface is unremarkable. The [...] characteristic determined by the Dermatopathology Laboratory at [facility], directed by Dr. Jackelyn Wen. These tests need not be, and therefore are not, approved by the [place] Food and Drug Administration. The tests are used for clinical purposes. 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
--- OUTSIDE RECORDS SUMMARY | 2024-12-09 09:34 | XMS_ITS | Encounter Summary ---
Author Organization [facility] Address [address] [place] [address] Care Team Providers Care Weight And Balance Control Agent Name Role Phone Víctor Mathews MD Primary Care Provider [phone] Encounter Details Date Type Department Care Team (Late Contact Info) Description 12/08/2024 External Device Data [facility] ABSTRACTION Provider, Abstract NO ADDRESS ON FILE Social History Tobacco Use Types Packs/Day Years Used Date Smoking Tobacco: Former Cigarettes 1 15 0 07/19/1968 - 07/20/1983 Smokeless Tobacco: Never Alcohol Use Standard Drinks/Week Comments Not Currently 0 (1 standard drink = 0.6 oz pur e alcohol) Comments No Sex and Gender Information Value Date Recorded Sex Assigned at Not on file Legal Sex Female 12:48 PM CDT Gender Identity Not on file Sexual Orientation Not on file documented as of this encounter Plan of Treatment Upcoming Encounters Date Type Department Care Team (Late st Contact Info) Description 10/18/2025 1:00 PM CDT Office Visit [facility] Oncology and Hematology - [place] [address] [facility] [address] [place] [address] Reji Peter MD [address] [facility] [address] [place] [address] documented as of this encounter Visit Diagnoses Not on filedocumented in this encounter Care Teams Weight And Balance Control Agent Relationship Specialty Start Date End Date Víctor Mathews MD [address] [place] [address] PCP - General Family Practice 04/14/19 documented as of this encounter
--- OUTSIDE RECORDS SUMMARY | 2024-12-09 09:34 | XMS_ITS | Clinical Summary ---
Author Organization [facility] Address [address] [facility] [place] [address] Care Team Providers Care Aging Department Supervisor Name Role Phone Víctor Mathews MD Primary Care Provider [phone] Source Comments [facility],non-owned Affiliates and Associated Physician Practices is amultiple site organization consisting of ambulatory clinics and hospital sitesin [place], [place], [place] and [place]. This disclosure is being madepursuant to the Care Everywhere program and may not contain all information available regarding this patient. 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 No suspicious solid or cystic mass in either breast. No right or left axillary lymphadenopathy. Loretta Ayala DO MAMMO ORDERABLES Final Resu lt from Last 3 Months or Most Recently Relevant to Health Maintenance Insurance [facility] [id number] [place] [address] * Guarantor: TRINY ALARCON Account Type Relation to Patient Date of Phone Billing Address Personal/Family [address] [place] [address] [place] [address] SELF PAY NO INSURANCE Member Subscriber Plan / Payer (Ef fective for All Dates) Name:Triny Alarcon Member ID:Not on file Relation to Subscriber:Not on file Name:TRINY ALARCON Subscriber ID:Not on file Address: [address] [place] [address] [place], [place] [address] Payer ID:Not on file Group ID:Not on file Type:Self Pay Address: [place], [place] * Guarantor: TRINY ALARCON Account Type Relation to Patient Date of Phone Billing Address Personal/Family [address] [place] [id number] [employer] SELF PAY NO INSURANCE Member Subscriber Plan / Payer (Ef fective for All Dates) Name:Triny Alarcon Member ID:Not on file Relation to Subscriber:Not on file Name:TRINY ALARCON Subscriber ID:Not on file Address: [address] [place] [address] Payer ID:Not on file Group ID:Not on file Type:Self Pay Address: [place], [place] * Guarantor: TRINY ALARCON Account Type Relation to Patient Date of Phone Billing Address Personal/Family [address] [place] [id number] [employer] SELF PAY NO INSURANCE Member Subscriber Plan / Payer (Ef fective for All Dates) Name:Triny Alarcon Member ID:Not on file Relation to Subscriber:Not on file Name:TRINY ALARCON Subscriber ID:Not on file Address: [address] [place] [address] Payer ID:Not on file Group ID:Not on file Type:Self Pay Address: [place], [place] Care Teams Aging Department Supervisor Relationship Specialty Start Date End Date Víctor Mathews MD [address] [place] [address] PCP - General Family Medicine 07/09/19
--- NOTE | 2024-12-09 11:00 | NEURO_ITS ---
Impression: # Complains of numbness of right hand. Status post Ulnar Surgery. Known Diabetic. ? # Right ulnar neuropathy across the elbow.Conduction velocity unchanged compared to previous study on 05/21/23. ? # Neurogenic changes in ulnar innervated muscles of hand. Proximal muscle Needle/EMG ? (Deltoid, Biceps, Triceps) normal. Findings comparable to previous study. Nerve Conduction Studies ?Stim Site NR Peak (ms) P-T Amp (?V) Site1 Site2 Delta-P (ms) Dist (cm) Rocky (m/s) Right Median Anti Sensory (2-3nd Digit) Wrist ? 3.8 72.4 Wrist 2-3nd Digit 3.8 14.0 37 Wrist ? 3.9 62.2 Wrist 2-3nd Digit 3.8 14.0 37 Right Radial Anti Sensory (Base 1st Digit) Wrist ? 2.4 25.2 Wrist Base 1st Digit 2.4 0.0 Right Ulnar Anti Sensory (5th Digit) Wrist ? 3.3 59.5 Wrist 5th Digit 3.3 14.0 42 ?Stim Site NR Onset (ms) O-P Amp (mV) Site1 Site2 Delta-0 (ms) Dist (cm) Rocky (m/s) Right Median Motor (Abd Poll Brev) Wrist ? 3.5 5.5 Elbow Wrist 4.9 27.0 55 Elbow ? 8.4 5.6 Right Ulnar Motor (Abd Dig Minimi) Wrist ? 3.0 2.2 A Elbow Wrist 5.8 26.0 45 A Elbow ? 8.8 2.0 B Elbow Wrist 3.4 19.0 56 B Elbow ? 6.4 0.7 F Wave Studies ?NR F-Lat (ms) L-R F-Lat (ms) Right Median (Mrkrs) (Abd Poll Brev) ? 27.89 Right Ulnar (Mrkrs) (Abd Dig Min) ? 30.70 Electromyography ?Side Muscle Nerve Root Ins Act Fibs Amp Dur Recrt Comment Right 1stDorInt Ulnar C8-T1 Nml Nml Nml >12ms +1 Right Ext Indicis Radial (Post Int) C7-8 Nml Nml Nml Nml Nml Right Ext Digitorum Radial (Post Int) C7-8 Nml Nml Nml Nml Nml Right BrachioRad Radial C5-6 Nml Nml Nml Nml Nml Right PronatorTeres Median C6-7 Nml Nml Nml Nml Nml Right Abd Poll Brev Median C8-T1 Nml Nml Nml Nml Nml Right ABD Dig Min Ulnar C8-T1 Nml Nml Nml >12ms +1 Right FlexPolLong Median (Ant Int) C7-8 Nml Nml Nml Nml Nml Right Abd Poll Long Radial (Post Int) C7-8 Nml Nml Nml Nml Nml
== END 2024-12-09 08:55 | disposition home or self-care (01) ==
LOC: ANHNEURO 08:54
PROVIDERS: PCP Family Medicine; Visit Provider Plastic Surgery
DX: G56.21 Lesion of ulnar nerve, right upper limb (principal); E11.9 Type 2 diabetes mellitus without complications; Z98.890 Other specified postprocedural states
CPT/HCPCS: 95886; 95909

== ENCOUNTER 2025-01-21 10:51 | Outpatient (CLI) | payer MEDICARE, OTHER, SELFPAY ==
--- NOTE | 2025-01-21 11:12 | ECG_ITS ---
Test Date: 2025-01-21 11:28:07 Measurements Intervals Viola Rate: 58 P: 48 LA: 155 QRS: -18 QRSD: 85 T: 30 QT: 411 QTc: 406 Interpretive Statements SINUS BRADYCARDIA VOLTAGE CRITERIA FOR LVH BORDERLINE ECG No previous ECG available for comparison Electronically Signed On 01-21-2025 11:52:13 DRUM DYEING MACHINE OPERATOR by John Goncalves D.O.
[2025-01-21 11:44] LABS: Anion Gap 6 mmol/L (4-12); Blood Urea Nitrogen 15 mg/dL (7-17); Calcium 9.2 mg/dL (8.4-10.2); Carbon Dioxide 24 mmol/L (22-30); Chloride 111 mmol/L (98-107); Estimated Glomerular Filt Rate > 60; Glucose 108 mg/dL (65-110); Potassium 3.9 mmol/L (3.4-5.0); Sodium 141 mmol/L (137-145)
--- OUTSIDE RECORDS SUMMARY | 2025-01-21 12:11 | XMS_ITS | Clinical Summary ---
Author Organization [facility] Address [address] [place] [address] Care Team Providers Care Cylinder Machine Operator Pulp Drier Name Role Phone Víctor Mathews MD Primary Care Provider [phone] Allergies No known active allergies Medications carvedilol [...] Encounters Date Type Department Care Team Description 01/05/2025 External Device Data STL ABSTRACTION Provider, Abstract 12/16/2024 External Device Data STL ABSTRACTION Provider, Abstract 12/15/2024 External Device Data STL ABSTRACTION Provider, Abstract 12/09/2024 External Device Data STL ABSTRACTION Provider, Abstract 12/08/2024 External Device Data STL ABSTRACTION Provider, Abstract 11/03/2024 External Device Data STL ABSTRACTION Provider, Abstract 10/27/2024 External Device Data STL ABSTRACTION Provider, Abstract from Last 3 Months Social History Tobacco [...] Description 10/18/2025 1:00 PM CDT Office Visit [facility] Oncology and Hematology - [place] [address] [place] [address] Reji Peter MD [address] [facility] [address] [place] [address] Health Maintenance Due Date Last Done [...] 9 AM CDT from Last 3 Months or Most Recently Relevant to Health Maintenance Results * MAMMOGRAM REPORT (10/06/2024 11:39 AM CDT) Reji Peter MD MAMMO ORDERABLES Final Result from Last 3 Months or Most Recently Relevant to Health Maintenance Insurance [facility] OPTIONS PPO [id number] OPTIONS PPO [id number] MEDICARE PART A AND B [facility] Care Teams Cylinder Machine Operator Pulp Drier Relationship Specialty Start Date End Date Víctor Mathews MD [address] [place] [address] PCP - General Family Practice 04/14/19
--- OUTSIDE RECORDS SUMMARY | 2025-01-21 12:11 | XMS_ITS | Clinical Summary ---
Author Organization [facility] [employer] Address [address] [facility] [place] [address] Care Team Providers Care Theatrical Scenic Designer Name Role Phone Víctor Mathews MD Primary Care Provider [phone] Source Comments [facility] [employer],non-owned Affiliates and Associated Physician Practices is amultiple site organization consisting of ambulatory clinics and hospital sitesin [place], [place], [place] and [place]. This disclosure is being madepursuant to the Care Everywhere program and may not contain all information available regarding this patient. Last updated 17.[facility] [employer] [facility] Allergies No known active allergies Medications * Be aware that medications may not be up to date on this document. Alwaysverify current medications with the patient. 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 No suspicious solid or cystic mass in either breast. No right or left axillary lymphadenopathy. us Loretta Ayala DO MAMMO ORDERABLES Final Resu lt from Last 3 Months or Most Recently Relevant to Health Maintenance Insurance [facility] [id number] [place] [address] * Guarantor: TRINY ALARCON Account Type Relation to Patient Date of Phone Billing Address Personal/Family [address] [place] [address] [place] [address] SELF PAY NO INSURANCE Member Subscriber Plan / Payer (Ef fective for All Dates) Name:Triny Alarcon Member ID:Not on file Relation to Subscriber:Not on file Name:TRINY ALARCON Subscriber ID:Not on file Address: [address] [place] [address] Payer ID:Not on file Group ID:Not on file Type:Self Pay Address: [place], [place] * Guarantor: TRINY ALARCON Account Type Relation to Patient Date of Phone Billing Address Personal/Family [address] [place] [id number] [employer] SELF PAY NO INSURANCE Member Subscriber Plan / Payer (Ef fective for All Dates) Name:Triny Alarcon Member ID:Not on file Relation to Subscriber:Not on file Name:TRINY ALARCON Subscriber ID:Not on file Address: [address] [place] [address] Payer ID:Not on file Group ID:Not on file Type:Self Pay Address: [place], [place] * Guarantor: TRINY ALARCON Account Type Relation to Patient Date of Phone Billing Address Personal/Family [address] [place] [id number] [employer] SELF PAY NO INSURANCE Member Subscriber Plan / Payer (Ef fective for All Dates) Name:Triny Alarcon Member ID:Not on file Relation to Subscriber:Not on file Name:TRINY ALARCON Subscriber ID:Not on file Address: [address] [facility] [place] [address] Payer ID:Not on file Group ID:Not on file Type:Self Pay Address: [place], [place] Care Teams Theatrical Scenic Designer Relationship Specialty Start Date End Date Víctor Mathews MD [address] [place] [address] PCP - General Family Medicine 07/09/19
--- OUTSIDE RECORDS SUMMARY | 2025-01-21 12:11 | XMS_ITS | Clinical Summary ---
Author Organization [facility] Address [address] [place] [address] Care Team Providers Care Recruitment Consultant Name Role Phone Unavailable Primary Care Provider [...] Scan (General) 2022 COVID-19 Vaccine ( - 2024-2 6 season) 2024 Influenza Adult (#1) 2024 RSV [...]
--- OUTSIDE RECORDS SUMMARY | 2025-01-21 12:11 | XMS_ITS | Encounter Summary ---
Author Organization 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, including shoulder Social History Tobacco Use Types Packs/Day Years Used Date Smoking Tobacco: Former Cigarettes 0 Q uit: 1986 Smokeless Tobacco: Never Comments Unknown Sex and Gender Information Value Date Recorded Sex Assigned at Not on file Legal 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 SKIN, left arm: DERMAL SCAR RESIDUAL MELANOMA NOT IDENTIFIED (L90.5) 3 2:06 PM CDT DERMATOPATHOLOGY LABORATORY at 1406 CDT Clinical History Malignant Melanoma in situ Check margins 2:06 PM CDT DERMATOPATHOLOGY LABORATORY Gross Description Specimen A: Received is one formalin filled container labeled with the patient's name and designated left arm. The specimen consists of a non-oriented ellipse of skin measuring [id number] mm. The epidermal surface is unremarkable. The [...] characteristic determined by the Dermatopathology Laboratory at [facility], directed by Dr. Jackelyn Wen. These tests need not be, and therefore are not, approved by the [place] Food and Drug Administration. The tests are used for clinical purposes. 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
--- OUTSIDE RECORDS SUMMARY | 2025-01-21 12:11 | XMS_ITS | Encounter Summary ---
Author Organization [facility] Address [address] [facility] [place] [address] Care Team Providers Care Wood Floor Layer Name Role Phone Víctor Mathews MD Primary Care Provider [phone] Encounter Details Date Type Department Care Team (Late st Contact Info) Description 09/11/2022 Lab Requisition [facility] - DermPath Lab [address] 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 Jar 0. 12:28 PM CDT DERMATOPATHOLOGY [...] characteristic determined by the Dermatopathology Laboratory at [facility], directed by Dr. Jackelyn Wen. These tests need not be, and therefore are not, approved by the [place] Food and Drug Administration. The tests are used for clinical purposes. Billing Codes Specimen Charges Stain Charges 78487 1 53017 1 12:28 PM CDT DERMATOPATHOLOGY LABORATORY Embedded Images 12:28 PM CDT DERMATOPATHOLOGY LABORATORY Pathology/Cytolog y TISSUE SPECIMEN FROM SKIN / Unknown 09/10/2022 09/12/2022 2:10 PM CDT Virginia Serna PA-C LAB - PATHOLOGY/CYTOLOGY MACHELLE BRANHAM Final Result DERMATOPATHOLOGY LABORATORY [facility] - Department of Dermatology [facility] Medicine [address] [place] [address], [address] [phone] documented in this encounter Visit Diagnoses Diagnosis Neoplasm of uncertain behavior of skin documented in this encounter Care Teams Wood Floor Layer Relationship Specialty Start Date End Date Víctor Mathews MD [address] [place] [address] [place] [id number] PCP - General Family Medicine 07/09/19 documented as of this encounter
== END 2025-01-21 10:52 | disposition home or self-care (01) ==
PROVIDERS: PCP Family Medicine; Visit Provider Anesthesiology
DX: Z01.818 Encounter for other preprocedural examination (principal); I10 Essential (primary) hypertension; E11.9 Type 2 diabetes mellitus without complications; Z87.891 Personal history of nicotine dependence
CPT/HCPCS: 36415; 80048; 93005

== ENCOUNTER 2025-01-28 06:40 | Day surgery (SDC) | payer MEDICARE, OTHER, SELFPAY ==
[2024-12-21 10:06] VITALS: BMI 37.0
[2025-01-19 11:59] VITALS: BMI 35.1
--- NOTE | 2025-01-28 06:45 | P.HP_ITS ---
"History of Present Illness History of Present Illness Chief complaint: RT Cubital Tunn.Syndrome & Dupuytren's Contracture Narrative: Patient seen and examined in pre-operative holding area. No interval change in medical history or symptoms. Patient recalls previous discussion of benefits and alternatives to procedure. Continues to desire to proceed with right cubital tunnel release revision, right guyon canal release, right forearm mass excision and right palmar fasciectomy. Reviewed procedure, post-op expectations and risks including but not limited to bleeding, infection, injury to tendon/nerve/vessel, decreased hand function, stiffness, RSD, no change or worsening of symptoms. I discussed the possible use of assistants and their participation in the case. Patient stated understanding and signed the consent form wishing to proceed. Review of Systems Review of Systems: All systems reviewed & are unremarkable except as noted in HPI and below PMFSH Past Medical History Medical History Constipation Controlled diabetes mellitus without complication, without long-term current use of insulin (~12/05/23) glucose 102 with hemoglobin A1c 5.6 on 04/06/2021. glucose 103 with hemoglobin A1c 5.3 on 04/06/2022. Fasting glucose 121 with hemoglobin A1c 5.8 on 10/26/2022. fasting glucose 137 with hemoglobin A1c 6.3 and GFR 73 with microalbumin ratio of 4 on 12/05/2023. glucose 109, hemoglobin A1c 5.8, GFR 76 on 08/20/2024. Ulnar neuropathy at elbow of right upper extremity (~2023) Bilateral carpal tunnel syndrome (~2023) Right carpal tunnel release 08/07/2023. Paresthesia of both hands EMG and nerve conduction study on 05/21/2023 with bilateral carpal tunnel syndrome and moderate to severe right ulnar neuropathy. Chronic pain in right shoulder (~08/2022) X-ray of the right shoulder on 11/10/2022 reveals mild arthritis with no fracture. Breast cancer screening by mammogram normal mammogram 10/19/2022. Normal mammogram 10/06/2024. Edema of both ankles Left wrist pain Left hand pain Cervical radiculitis X-ray of the cervical spine on 05/16/2023 reveals mild Degenerative changes. Cervicalgia BMI 39.0-39.9,adult Oral candidiasis Fever blister Chronic pain of both ankles Left acute otitis media Acute sinusitis CT of the paranasal sinuses on 10/04/2022 was unremarkable COVID-19 (12/16/21) tested positive 12/17/2021. Fully vaccinated. Chronic depression Chronic anxiety Obesity (BMI 30-39.9) BMI 36.0-36.9,adult Morbid obesity with BMI of 40.0-44.9, adult Shortness of breath Fluid overload Chronic deep vein thrombosis (DVT) Hypoxia Pulmonary hypertension (12/10/20) moderate pulmonary hypertension on echocardiogram 12/10/2020 with ejection fraction 55-60% with grade 1 diastolic dysfunction and mild mitral valve regurgitation and moderate tricuspid valve regurgitation Multiple thyroid nodules (12/09/20) multi nodular goiter ultrasound thyroid 12/12/2020 with recheck in 1 year. TSH 2.42 on 08/20/2024. DVT (deep venous thrombosis) (12/09/20) DVT left lower leg with chronic DVT present on Doppler 04/10/2021 left popliteal, gastrocnemius and peroneal vein Bilateral pulmonary embolism (12/09/20) Right knee DJD total knee replacement Elevated TSH repeat TSH normal at 1.93 with free T4 0.9 on 04/06/2021 Encounter for Postoperative Care Cellulitis Sting, hornet Hypertension Arthritis of right knee Knee effusion, right Acute medial meniscus tear of right knee Internal derangement of knee Body mass index (BMI) of 40.1 to 44.9 in adult Mixed hyperlipidemia total cholesterol 145, triglycerides 140, HDL 43 and LDL 78 on 10/21/2019. Total cholesterol 181, HDL 52, triglycerides 96, LDL 110 on 04/06/2022. Cholesterol 178, triglycerides 192, HDL 43, LDL 104 with ratio 4.1 on 10/26/2022. Cholesterol 187, triglycerides 212, HDL 41, LDL 113 with ratio 4.6 on 08/20/2024. Abnormal fasting glucose glucose 102 with hemoglobin A1c 5.6 on 04/06/2021. glucose 103 with hemoglobin A1c 5.3 on 04/06/2022. Fasting glucose 121 with hemoglobin A1c 5.8 on 10/26/2022. Acute non-recurrent maxillary sinusitis Right-sided thoracic back pain History of migraine headaches Dysuria Right flank pain Colon polyp, hyperplastic Abnormal breast tissue Chronic low back pain with right-sided sciatica GERD (gastroesophageal reflux disease) Seasonal allergic rhinitis Migraine without aura and without status migrainosus, not intractable ESR normal at 5 was CRP normal at 6.2 on 01/03/2024. MRI of the brain was normal on 02/03/2024. Essential (primary) hypertension Frozen shoulder (~2011) TMJ (dislocation of temporomandibular joint) (~1979) Surgical History Surgical History S/P total knee arthroplasty H/O breast biopsy H/O arthroscopy of right knee H/O colonoscopy with polypectomy History of shoulder surgery History of surgery TMJ surgery History of sinus surgery (~2004) History of bunionectomy (~1998) bilateral H/O knee surgery (~1979) Hx of cholecystectomy (~1999) H/O: hysterectomy (~1984) History of placement of ear tubes Hx of tonsillectomy Family History Family History Mother Cerebrovascular accident Dementia Father Diabetes mellitus Hypertension CHF (congestive heart failure) Grandparent Heart disease Grandparent Heart disease Grandparent Cerebrovascular accident Grandparent Automobile accident Other Arthritis Kidney disorder Social History Social History Social History: The patient has 1 child. She works for a [employer] company which is called [employer]. 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 Patient is a former smoker and quit many years ago. She lives with her Emerson who is her surrogate. They have 2 [facility] names carol and vadim Code status full code Smoking packs per day: 1 Smoking cigarettes per day: 20.0 Years smoked: 9 Smoking pack-years: 9.00 Smoking status: Former smoker Tobacco type: cigarettes Second hand tobacco smoke exposure: No Smoking end date: 02/18/82 Additional smoking assessment comments: PT DENIES ALL FORMS OF TOBACCO USE Alcohol intake: current Drinks per week: 1 Alcohol use details: 1-2 DRINKS/MONTH Substance use: never Substance use type: does not use Last use: 1982 Lack of Transportation: No Lack of Food: Never True Current Housing: I Have Housing Concerned About Future Housing: No Difficulty Paying Gas/Electric Bills: No Difficulty Paying for Meds: No Currently Unemployed: No Education: High School Diploma/GED Difficulty w/ Childcare or Family Care: No Living arrangements: with family Occupation/Education: occupation Additional occupation/education comments: [employer] Gender identity (if verbalized by the patient): Female Sexual Orientation (if Verbalized by the Patient): Straight or Heterosexual Spiritual care concerns: No Agree to blood products: Yes Meds Home Medications and Allergies Home Medications ?Medication ?Instructions ?Recorded ?Confirmed ?Type aspirin 81 mg tablet,delayed 81 mg PO DAILY 11/08/22 1 03/31/24 History release (Timpson Aspirin) ubrogepant 100 mg tablet (Ubrelvy) 100 mg PO ONCE PRN migraine #14 12/31/23 01/28/25 Rx tabs celecoxib 200 mg capsule (Celebrex) 200 mg PO DAILY pa in #90 caps 04/13/24 01/28/25 Rx duloxetine 60 mg capsule,delayed 60 mg PO DAILY #30 ca ps 07/02/24 01/28/25 Rx release topiramate 50 mg tablet 75 mg (1.5 x 50 mg) PO BID # 90 tabs 07/02/24 01/28/25 Rx carvedilol 12.5 mg tablet 12.5 mg PO Q12H #60 tabs 01/28/25 Rx esomeprazole magnesium 40 mg 40 mg PO DAILY #30 caps 0 10/26/24 01/28/25 Rx capsule,delayed release (Nexium) lisinopril 20 mg tablet 20 mg PO DAILY #90 tabs 11/1901/28/25 Rx metformin 500 mg tablet,extended 1,000 mg (2 x 500 mg) PO BID #360 12/10/24 01/28/25 Rx release 24 hr tabs Allergies Allergy/AdvReac Type Severity Reaction Status Date / Time nickel Allergy Rash Verified 01/28/25 09:23 contact metal agent AdvReac SKIN Verified 01/28/25 09:23 IRRITATION Exam Narrative: unchanged Assessment and Plan Assessment and plan (1) Ulnar neuropathy at elbow of right upper extremity: Onset Date: ~2023 Code(s): G56.21 - Lesion of ulnar nerve, right upper limb Status: Acute Assessment and Plan: cont as above (2) Paresthesia of both hands: Code(s): R20.2 - Paresthesia of skin Status: Acute (3) Localized swelling, mass and lump, right upper limb: Code(s): R22.31 - Localized swelling, mass and lump, right upper limb Status: Acute"
--- NOTE | 2025-01-28 06:46 | P.OP_ITS ---
Procedure Note - Detailed Date of Procedure 01/28/25 Pre-op Diagnosis RT Cubital tunnel and guyon canal.Syndrome, right palmar dupuytren nodule and right forearm mass. Post-op Diagnosis Same Procedure Performed right cubital tunnel release revision, right guyon canal and carpal tunnel release, right forearm mass excision and right palmar fasciectomy. 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 The patient signed the consent form. PROCEDURE IN DETAIL: The patient taken back to OR on the stretcher in supine position. Time out performed with anesthesia, surgeon and staff agreeing on patient's name site and surgery to be performed SCDs were placed on the lower extremities and inflated A tourniquet was placed on {right} upper extremity and antibiotics given IV After anesthesia administered sedation I injected {15}cc 1%lido with epi and 0.5% marcaine plain at the operative sites The?{right upper extremity}?was prepped and draped in sterile fashion the??{right upper extremity} was??exsanguinated with Esmarch bandage and tourniquet inflated to 250mmHg I next proceeded with making a longitudinal incision between two heads for flexor carpi ulnaris at end of {right} cubital tunnel with 15 blade scalpel Utilizing her previous incision and extending it proximally and distally.? Littler scissors were used to spread down near the proximal aspect where I identified the ulnar nerve which I protected throughout the procedure and proceeded with anterograde dissection of significant scar tissue from the nerve most notable around the fcu fascia. The nerve appeared healthy with visible vaso nervorum.? There was no subluxation on full elbow range of motion or undue tightness requiring transposition. ? I irrigated with normal saline and closure with 3-0 Vicryl for dermis and 4-0 Monocryl for subcuticular. Next I took my attention to the palm where I proceeded with making a longitudinal incision in line with the ring finger going obliquely across the volar wrist flexion crease to create an ulnarly based flap onto the proximal forearm through skin and dermis with a 15 blade scalpel. Littler scissors were used to spread through subcutaneous tissue proximally down to the antebrachial fascia. I made an incision in the antebrachial fascia and identified the median nerve at this location. I proceeded with anterograde dissection and elevation of skin flap distally releasing any scar tissue or bands affecting the carpal tunnel. Dissecting more ulnarly I identified the ulnar nerve and artery in distal forearm and proceeded with release of Guyon's canal from the ulnar aspect of the carpal tunnel until I visualized the bifurcation of the ulnar nerve. The nerve appeared healthy with visible vaso nerve and there was a notable band of constriction at proximal edge of hypothenar musculature as well as just distal to the hook of hamate that was released. No ganglion cyst was identified within Guyon's canal. I irrigated with normal saline and closed with 3-0 Vicryl and 4- 0 chromic. Next I took my attention to the right palm where I made an elliptical incision around the tender Dupuytren's pitted nodule through skin and dermis with 15 blade scalpel. Littler scissors were used to spread through subcutaneous tissue down to the thickened fascia. I proceeded with circumferential dissection and excision of this painful fascial nodule. I irrigated with normal saline and closed with 4-0 chromic. Next I took my attention to the dorsal right forearm mass where I proceeded with making a longitudinal incision over the mass through skin and dermis with 15 blade scalpel. Littler scissors were used to spread through subq around the amss. I proceeded with circumferential dissection of the lipomatous mass. Irrigated with normal saline. Closure with 3-0 Vicryl for fdermis was performed followed by 4-0 Monocryl for subcuticular closure. mass measured 1cm in diameter The incision was covered with Dermabond at dorsal forearm and elbow and xeroform in the palm then 4x4s, pau, and a posterior elbow and volar wrist splint for patient safety, security and comfort and secured with lana bandages after the tourniquet was let down noting the hand was warm and well perfused.? Patient awaken from anesthesia and transferred to recovery in stable condition Complications - none EBL- 4cc Disposition - home in stable condition Jorge Rose PA-C was essential for positioning, retraction, closure and dressing placement. [facility] Billing Surgery - Charge Forward: Surgery Billing ([id number], [id number] and [id number] same for jorge lemus )
[2025-01-28 08:55] VITALS: BP 167/73; PULSE 66; RESP 18; TEMP 36.4; O2SAT 99
[2025-01-28] MEDS: LACTATED RINGERS 1,000 ML 30 ML IV CONT ×2 (09:15→10:27)
[2025-01-28] MEDS: ACETAMINOPHEN 500 MG TABLET 1000 MG PO (09:33)
--- NOTE | 2025-01-28 10:06 | P.PNAN_ITS ---
Anes - Initial Pre Proc Eval Procedure: Operation Date: 01/28/25 10:15 Proposed Procedures p Revision Right Cubital Tunnel Release, Right Guyon's Canal Release - Shana Ferro MD s Right Palmar Dupuytren's Excision - Shana Ferro MD s Excision Mass Right Dorsal Forearm - Shana Ferro MD Date/Time: 01/28/25 10:06 Surgeon: Shana Ferro MD Pre Op Diagnosis: RT Cubital Tunn.Syndrome & Dupuytren's Contracture Patient Data Age: 69 Gender: F Height: 1.63 m Weight: 96.5 kg Last Vital Signs Temp 97.6 F 01/28/25 08:55 Pulse 66 01/28/25 08:55 Resp 18 01/28/25 08:55 BP 167/73 H 01/28/25 08:55 Pulse Ox 99 01/28/25 08:55 O2 Del Method Room Air 01/28/25 08:55 Allergies Allergy/AdvReac Type Severity Reaction Status Date / Time nickel Allergy Rash Verified 01/28/25 09:23 contact metal agent AdvReac SKIN Verified 01/28/25 09:23 IRRITATION Home Medications ?Medication ?Instructions ?Recorded ?Confirmed ?Type aspirin 81 mg tablet,delayed 81 mg PO DAILY 11/08/22 1 03/31/24 History release ([place] [facility]) Held on 01/28/25. Instructions: Resume on 01/29/25. ubrogepant 100 mg tablet (Ubrelvy) 100 mg PO ONCE PRN migraine #14 12/31/23 01/28/25 Rx tabs celecoxib 200 mg capsule (Celebrex) 200 mg PO DAILY pa in #90 caps 04/13/24 01/28/25 Rx duloxetine 60 mg capsule,delayed 60 mg PO DAILY #30 ca ps 07/02/24 01/28/25 Rx release topiramate 50 mg tablet 75 mg (1.5 x 50 mg) PO BID # 90 tabs 07/02/24 01/28/25 Rx carvedilol 12.5 mg tablet 12.5 mg PO Q12H #60 tabs 01/28/25 Rx esomeprazole magnesium 40 mg 40 mg PO DAILY #30 caps 0 10/26/24 01/28/25 Rx capsule,delayed release (Nexium) lisinopril 20 mg tablet 20 mg PO DAILY #90 tabs 11/1901/28/25 Rx metformin 500 mg tablet,extended 1,000 mg (2 x 500 mg) PO BID #360 12/10/24 01/28/25 Rx release 24 hr tabs hydrocodone 5 mg-acetaminophen 325 1 tablet PO Q6H PRN pain #8 tabs 01/28/25 Rx mg tablet Laboratory Tests 01/28/25 09:14 POC Capillary Glucose 105 mg/dl (65-105) Patient hx anesthesia problems: none Family hx anesthesia problems: none Results Review: All pre-operative results and documents have been reviewed as part of the pre- operative evaluation. [facility] Past Medical History Medical History Constipation Controlled diabetes mellitus without complication, without long-term current use of insulin (~12/05/23) glucose 102 with hemoglobin A1c 5.6 on 04/06/2021. glucose 103 with hemoglobin A1c 5.3 on 04/06/2022. Fasting glucose 121 with hemoglobin A1c 5.8 on 10/26/2022. fasting glucose 137 with hemoglobin A1c 6.3 and GFR 73 with microalbumin ratio of 4 on 12/05/2023. glucose 109, hemoglobin A1c 5.8, GFR 76 on 08/20/2024. Ulnar neuropathy at elbow of right upper extremity (~2023) Bilateral carpal tunnel syndrome (~2023) Right carpal tunnel release 08/07/2023. Paresthesia of both hands EMG and nerve conduction study on 05/21/2023 with bilateral carpal tunnel syndrome and moderate to severe right ulnar neuropathy. Chronic pain in right shoulder (~08/2022) X-ray of the right shoulder on 11/10/2022 reveals mild arthritis with no fracture. Breast cancer screening by mammogram normal mammogram 10/19/2022. Normal mammogram 10/06/2024. Edema of both ankles Left wrist pain Left hand pain Cervical radiculitis X-ray of the cervical spine on 05/16/2023 reveals mild Degenerative changes. Cervicalgia BMI 39.0-39.9,adult Oral candidiasis Fever blister Chronic pain of both ankles Left acute otitis media Acute sinusitis CT of the paranasal sinuses on 10/04/2022 was unremarkable COVID-19 (12/16/21) tested positive 12/17/2021. Fully vaccinated. Chronic depression Chronic anxiety Obesity (BMI 30-39.9) BMI 36.0-36.9,adult Morbid obesity with BMI of 40.0-44.9, adult Shortness of breath Fluid overload Chronic deep vein thrombosis (DVT) Hypoxia Pulmonary hypertension (12/10/20) moderate pulmonary hypertension on echocardiogram 12/10/2020 with ejection fraction 55-60% with grade 1 diastolic dysfunction and mild mitral valve regurgitation and moderate tricuspid valve regurgitation Multiple thyroid nodules (12/09/20) multi nodular goiter ultrasound thyroid 12/12/2020 with recheck in 1 year. TSH 2.42 on 08/20/2024. DVT (deep venous thrombosis) (12/09/20) DVT left lower leg with chronic DVT present on Doppler 04/10/2021 left popliteal, gastrocnemius and peroneal vein Bilateral pulmonary embolism (12/09/20) Right knee DJD total knee replacement Elevated TSH repeat TSH normal at 1.93 with free T4 0.9 on 04/06/2021 Encounter for Postoperative Care Cellulitis Sting, hornet Hypertension Arthritis of right knee Knee effusion, right Acute medial meniscus tear of right knee Internal derangement of knee Body mass index (BMI) of 40.1 to 44.9 in adult Mixed hyperlipidemia total cholesterol 145, triglycerides 140, HDL 43 and LDL 78 on 10/21/2019. Total cholesterol 181, HDL 52, triglycerides 96, LDL 110 on 04/06/2022. Cholesterol 178, triglycerides 192, HDL 43, LDL 104 with ratio 4.1 on 10/26/2022. Cholesterol 187, triglycerides 212, HDL 41, LDL 113 with ratio 4.6 on 08/20/2024. Abnormal fasting glucose glucose 102 with hemoglobin A1c 5.6 on 04/06/2021. glucose 103 with hemoglobin A1c 5.3 on 04/06/2022. Fasting glucose 121 with hemoglobin A1c 5.8 on 10/26/2022. Acute non-recurrent maxillary sinusitis Right-sided thoracic back pain History of migraine headaches Dysuria Right flank pain Colon polyp, hyperplastic Abnormal breast tissue Chronic low back pain with right-sided sciatica GERD (gastroesophageal reflux disease) Seasonal allergic rhinitis Migraine without aura and without status migrainosus, not intractable ESR normal at 5 was CRP normal at 6.2 on 01/03/2024. MRI of the brain was normal on 02/03/2024. Essential (primary) hypertension Frozen shoulder (~2011) TMJ (dislocation of temporomandibular joint) (~1979) Surgical History Surgical History S/P total knee arthroplasty H/O breast biopsy H/O arthroscopy of right knee H/O colonoscopy with polypectomy History of shoulder surgery History of surgery TMJ surgery History of sinus surgery (~2004) History of bunionectomy (~1998) bilateral H/O knee surgery (~1979) Hx of cholecystectomy (~1999) H/O: hysterectomy (~1984) History of placement of ear tubes Hx of tonsillectomy Family History Family History Mother Cerebrovascular accident Dementia Father Diabetes mellitus Hypertension CHF (congestive heart failure) Grandparent Heart disease Grandparent Heart disease Grandparent Cerebrovascular accident Grandparent Automobile accident Other Arthritis Kidney disorder Social History Social History Social History: The patient has 1 child. She works for a [email or web address] which is called [employer]. 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 Patient is a former smoker and quit many years ago. She lives with her Emerson who is her surrogate. They have 2 [facility] names carol and vadim Code status full code Smoking packs per day: 1 Smoking cigarettes per day: 20.0 Years smoked: 9 Smoking pack-years: 9.00 Smoking status: Former smoker Tobacco type: cigarettes Second hand tobacco smoke exposure: No Smoking end date: 02/18/82 Additional smoking assessment comments: PT DENIES ALL FORMS OF TOBACCO USE Alcohol intake: current Drinks per week: 1 Alcohol use details: 1-2 DRINKS/MONTH Substance use: never Substance use type: does not use Last use: 1982 Lack of Transportation: No Lack of Food: Never True Current Housing: I Have Housing Concerned About Future Housing: No Difficulty Paying Gas/Electric Bills: No Difficulty Paying for Meds: No Currently Unemployed: No Education: High School Diploma/GED Difficulty w/ Childcare or Family Care: No Living arrangements: with family Occupation/Education: occupation Additional occupation/education comments: [employer] Gender identity (if verbalized by the patient): Female Sexual Orientation (if Verbalized by the Patient): Straight or Heterosexual Spiritual care concerns: No Agree to blood products: Yes Anes - Eval Final PreProcedure Day of Procedure 01/28/25 10:06 Heart: regular rate and rhythm Lungs: clear to auscultation Airway: Mallampati scale class II Neurological: alert and oriented Last oral intake: >/= 8 hours ASA classification: III Anesthetic plan: proceed Anesthesia type and monitoring: general Results Review: All pre-operative results and documents have been reviewed as part of the pre- operative evaluation. Informed Consent: The patient's anesthetic plan and its attendant risks and benefits were discussed with the patient/family/POA. Questions were solicited and answers provided to the satisfaction of the patient/family/POA.
[2025-01-28] MEDS: ceFAZolin SODIUM 2 GM/20 ML SW SYRINGE IV PUSH (10:11)
[2025-01-28] MEDS: LIDO 1%/EPINEPHRINE 1:100,000 20 ML VIAL (10:26)
[2025-01-28] MEDS: BUPivacaine HCL 0.5% 10 ML AMP 20 ML (10:26)
[2025-01-28 11:14] VITALS: BP 121/69; PULSE 66; RESP 16; O2SAT 94
[2025-01-28 11:24] VITALS: BP 119/66; PULSE 70; RESP 16; O2SAT 97
[2025-01-28 11:34] VITALS: BP 132/72; PULSE 65; RESP 18; O2SAT 100
== END 2025-01-28 11:47 | disposition home or self-care (01) ==
LOC: ASC 08:43
PROVIDERS: PCP Family Medicine; Visit Provider Plastic Surgery
PROC: (CPT 64718; principal; 2025-01-28 10:15)
PROC: (CPT 26045; 2025-01-28 10:15)
PROC: (CPT 64721; 2025-01-28 10:15)
DX: G56.01 Carpal tunnel syndrome, right upper limb (principal); G56.21 Lesion of ulnar nerve, right upper limb; M72.0 Palmar fascial fibromatosis [Dupuytren]; D17.21 Benign lipomatous neoplasm of skin and subcutaneous tissue of right arm
CPT/HCPCS: 64721; 64718; 26045; 25075

== ENCOUNTER 2025-01-28 15:03 | Outpatient (NON) | payer MEDICARE, OTHER, SELFPAY ==
--- NOTE | 2025-01-28 | S_PTH ---
PATIENT: Triny Alarcon LOC: [facility] #:[id number] AGE/SX: 69/F ROOM: RE01/28/[address]: Shana Ferro MD : 1955 BED: DIS: 01/28/2025 SPEC #: [id number] RECD: 01/29/25 07:27 STATUS: MICHAEL REDell #: [id number] ARNAV: 01/28/25 00:[address]: Shana Ferro DEPT: [facility] Surgical RECD BY: Colleen Blanchard ENTERED: 01/29/25 07:29 SP TYPE: Surgical OTHR DR: Víctor Mathews MD Tissues: A - Mass B - Mass Procedures: Hematoxylin and Eosin Stain Gross and Microscopic Level 3
== END 2025-01-28 15:04 | disposition home or self-care (01) ==
PROVIDERS: PCP Family Medicine; Visit Provider Plastic Surgery
DX: D17.21 Benign lipomatous neoplasm of skin and subcutaneous tissue of right arm (principal); M72.0 Palmar fascial fibromatosis [Dupuytren]
CPT/HCPCS: 88304